=== PATIENT | female | born 1945 ===

== ENCOUNTER 2017-05-23 13:35 | Inpatient (IN) ==
[2017-05-23] MEDS ORDERED: NITROGLYCERIN SL 0.4 MG TABLET SL PRN (13:48)
[2017-05-23] MEDS ORDERED: NITROGLYCERIN 2% OINT 1 INCH/GM PACK TOP STA (13:48)
[2017-05-23] MEDS ORDERED: ALUM/MAG/SIMETH/LIDO VISC 1:1 30 ML BOTTLE PO STA (13:48)
[2017-05-23] MEDS ORDERED: ASPIRIN 325 MG TABLET PO STA (13:48)
[2017-05-23] MEDS ORDERED: ONDANSETRON 4 MG/2 ML VIAL IV PRN ×2 (13:48→16:55)
[2017-05-23] MEDS ORDERED: MORPHINE 2 MG/1 ML SYRINGE IV PRN ×2 (13:48→16:55)
[2017-05-23] MEDS ORDERED: ENOXAPARIN 100 MG/ML SYRINGE SUBCUT STA (13:48)
[2017-05-23] MEDS ORDERED: ENOXAPARIN 100 MG/ML SYRINGE SUBCUT ONE (14:15)
[2017-05-23] MEDS ORDERED: NITROGLYCERIN 2% OINT 1 INCH/GM PACK TOP ONE (14:15)
[2017-05-23] MEDS ORDERED: ALUM/MAG/SIMETH/LIDO VISC 1:1 30 ML BOTTLE PO ONE (14:16)
[2017-05-23] MEDS ORDERED: ASPIRIN 325 MG TABLET ONE (14:16)
--- NOTE | 2017-05-23 14:19 | Emergency Department Note ---
Radha Glover Gwan, am scribing for, and in the presence of, Pedro López MD 13:53 . Maribel Glover James D, MD, personally performed the services described in this documentation, ascribed by Radha Garcia in my presence, and it is both accurate and complete 414 . Arrival - Arrival Chief Complaint: Chest Pain Stated Complaint: CHEST PAIN ED Nursing Triage Note: Patient transfer from [facility] for evaluation of chest pain. Patient woke up this morning, reports sitting on the side of her bed and notice chest begin to hurt Pain is located on the left side of her chest without radiation, nausea, shortness of breath, or diaphoresis. She is without c/o chest pain at this time. Mode of Arrival: Stretcher Limitations: No Limitations Source: Patient, Old Records Reviewed, RN Notes Reviewed - History of Present Illness HPI Narrative: Patient is a 71 y/o female, with a hx of CAD/HTN/CVA, brought into the ED via EMS and transferred form [facility] with a c/o chest pain with an onset this morning. At onset, pt stated that she was sitting in the side of her bed. She describes her pain as a intermittent soreness and that it was located on the left side of her chest. Patient continued to note that with exertion, her pain worsens. She denies that her pain radiates, any nausea, diaphoresis or SOB. Patient confirmed tahat she has a hx of bypass and stent. She denies that this is the same discomfort or having a SHx of smoking cigarettes/ETOH use. While in ED, patient stated that she does not have any pain. Onset (ago): hour(s) Consistency: intermittent Severity: moderate Allergies/Adverse Reactions: Allergies Allergy/AdvReac Type Severity Reaction Status Date / Time No Known Allergies Allergy Verified 02/25/17 08:24 Home Medications: Home Medications Medication Instructions Recorded Confirmed Type Clopidogrel [Plavix] 75 mg PO DAILY 12/23/15 02/25/17 History Isosorbide Mononitrate [Isosorbide 30 mg PO DAILY 12/23/15 02/25/17 History Mononitrate ER] Nitroglycerin Sl Tab [Nitrostat] 0.4 mg SL DIRECTED PRN 12/23/15 02/25/17 History Amlodipine Besylate [Amlodipine 5 mg PO DAILY 05/23/17 History Besylate] Atorvastatin Calcium [Atorvastatin 40 mg PO DAILY 05/23/17 History Calcium] Benazepril HCl [Benazepril HCl] 20 mg PO BID 05/23/17 History Ergocalciferol [Drisdol] 50,000 units PO Q7D 05/23/17 History Furosemide [Furosemide] 20 mg PO DAILY 05/23/17 History Review of System - Review of System 12 point system: reviewed and no additional remarkable complaints except as stated - Review of System Constitutional: Absent: chills, fever Eyes: Absent: pain Head/Ears/Nose/Throat: Absent: earache Respiratory: Absent: cough Cardiovascular: Present: as per HPI, chest pain Gastrointestinal: Absent: abdominal pain, nausea, diarrhea Medical,Surgical,& Family Hx - Medical History Cardio: History of: CAD, Hypertension No history of: CHF, [place] Neurology: History of: Cerebrovascular Accident No history of: Seizures HEENT: History of: Eye Problem (glasses) Endocrine: History of: Dyslipidemia Gastrointestinal: History of: GERD, GI Problems (dysphagia) No history of: Hepatitis, Liver Problems Hematology: History of: Anemia No history of: Blood Transfusion Reaction Other: No history of: Anesthesia Reactions, Cancer - Surgical History Cardiac Surgeries: Sugical HX of: Cardiac Catheterization, Cardiac Surgery ( CABG 12/2015) HEENT Surgeries: Patient denies: Eye Surgery, Tonsilectomy & Adenoidectomy Abdominal Surgeries: Surgical HX of: Appendectomy, Colonoscopy, EGD Patient denies: Cholecystectomy Reproductive Surgeries: Patient denies;: Breast Surgery, Hysterectomy, Tubal Ligation Orthopedic Surgeries: Surgical HX of;: Orthopedic Surgery (rotator cuff surgery) - Family History Family History: Reports;: Family Hypertension Denies;: Family Cancer - Social History Smoking Status: Never smoker Frequency of Alcohol Use: None Type of Drug Use: None Exam Physical Examination: GENERAL: This is a [place] female in no apparent distress. VITAL SIGNS: HEENT: Head is normocephalic and atraumatic. Pupils are equally round and reactive to light. Extraocular movement are intact. Oropharynx is benign with moist mucous membranes. NECK: Neck is soft and supple without tenderness. There are no masses. There is no lymphadenopathy. LUNGS: Lungs are clear to auscultation bilaterally. Chest rises symmetrically. There is no chest wall tenderness. CV: Heart is regular rate and rhythm without murmurs, rubs, or gallops. ABDOMEN: Abdomen is soft, non-tender to palpation. There are no abnormal masses palpated. There is no organomegaly. Bowel sounds are present and active. SKIN: Skin is warm and dry. No rash. EXTREMITIES: Patient has full range of motion without tenderness. There is no pedal edema. NEUROLOGIC: Awake, alert, and oriented x4. Cranial nerves II through XII are grossly intact. There are no motorsensory deficits. PSYCHIATRIC: Normal affect. Normal mood. Vital Signs: Vital Signs Temperature 97.0 F L 05/23/17 13:36 Pulse Rate 59 L 05/23/17 13:36 Respiratory Rate 17 05/23/17 13:36 Blood Pressure 165/95 05/23/17 13:36 O2 Sat by Pulse Oximetry 99 05/23/17 13:36 Course - Consultations Consultation #1: Discussed with hospitalist. Patient will be admitted to their service. Time: 15:47 Results - Labs CBC & BMP: 05/23/17 14:26 05/23/17 14:26 Lab Results: I have reviewed the patients labs Labs: Laboratory Tests 05/23/17 14:26 Troponin I < 0.015 - EKG EKG results: interpreted by ERMD - Impressions EKG: Sinus bradycardia with rate of 57 right axis deviation, old inferior SD, ST segment depression laterally and inferiorly consistent with ischemia. - Diagnostic Findings Procedure: Chest x-ray: image reviewed by me (Old median sternotomy, no pleural effusions, no infiltrates.) Disposition Clinical Impression: Chest pain, Coronary artery disease Case discussed with: patient Disposition: Still a Patient Condition: Stable Time of Disposition: 15:42
--- NOTE | 2017-05-23 14:27 | XRay Report ---
2 view chest. Indication: Chest pain. Comparison: Outside film from earlier today. The heart is enlarged with left ventricular hypertrophy. Post median sternotomy. Large calcified lymph node in the AP window area. The pulmonary vasculature is normal. The lung tsai are free of infiltrate. No pneumothorax or pleural effusion. The hilar regions are somewhat prominent, particularly the right suprahilar region, this is stable dating back to 2016. A previous CTA of the chest at that time noted that this can be accounted for by prominent vasculature. Impression: Cardiomegaly. No acute abnormality. PROCEDURE INTERPRETED AT [facility] DEPARTMENT OF RADIOLOGY Final Report Signed by: Dr. Latricia Tabor
[2017-05-23 14:36] LABS: Basophils % 0.4 % (0.0-0.8); Eosinophils # 0.2 10*3/uL (0.0-0.87); Eosinophils % 4.5 % (0.00-10.9); Hematocrit 35.5 VOL% (35.7-47.0); Hemoglobin 12.2 GM/DL (12.0-16.0); Immature Granulocytes % 0.2 %; Immature Granulocytes Absolute 0.01 #; Lymphocytes # 1.4 10*3/uL (1.4-4.0); Lymphocytes % 30.2 % (21.3-54.2); Mean Corpuscular HGB Conc 34.4 GM/DL (32-36); Mean Corpuscular Hemoglobin 32 PG (27-34); Mean Corpuscular Volume 92.7 FL (87-102); Mean Platelet Volume 11.4 FL (9.6-12.0); Monocytes # 0.5 10*3/uL (0.11-0.8); Neutrophils # 2.5 10*3/uL (1.4-7.4); Neutrophils % 53.7 % (38.7-73.9); Platelet Count 154 T/CUMM (130-400); Red Blood Count 3.83 MC/CUMM (3.8-5.5); Red Cell Distribution Width 12.5 % (9.3-17.3); White Blood Count 4.6 T/CUMM (4-12)
[2017-05-23 14:46] LABS: PT Patient Result 10.4 SECS; Partial Thromboplastin Time 27.8 SECS (0-40)
[2017-05-23 14:59] LABS: Albumin 3.8 G/DL (3.4-5.0); Bilirubin,Total 0.7 MG/DL (0.2-1.0); Calcium 9.1 MG/DL (8.5-10.1); Magnesium 2.3 MG/DL (1.8-2.4); Osmolality,Calculated 289.8 MOS/KG (273-304); Potassium 3.7 MMOL/L (3.5-5.1); Total Protein 7.3 G/DL (6.4-8.3)
[2017-05-23 16:12] LABS: Apearance,Urine CLEAR (Clear); Bilirubin,Urine Negative (Negative); Blood, Urine Negative (Negative); Glucose,Urine (UA) Negative (Negative); Ketones,Urine Negative (Negative); Mucus,Urine Occasional /LPF (Occasional); Nitrite,Urine Negative (Negative); Protein,Urine Negative; RBC,Urine <1 /HPF (0-4); Squamous Epithelial Cell,Urine Occasional /HPF (0-10); Urine Color Straw (Yellow); Urine Specific Gravity 1.009 (1.001-1.035); Urine Urobilinogen < 2.0 EU/DL (0.2-1.0); WBC,Urine <1 /HPF (0-6)
[2017-05-23 16:20] LABS: Barbiturates Screen,Urine Negative (Negative); Benzodiazepines Screen,Urine Negative (Negative); Cannabinoid Screen,Urine Negative (Negative); Opiate Screen,Urine Positive (Negative); Phencyclidine Screen,Urine Negative (Negative)
--- NOTE | 2017-05-23 16:32 | Hospitalist History & Physical ---
Assessment and Plan - Time spent with patient Time spent with patient: Greater than 30 minutes (1) Chest pain Status: Acute Assessment and plan: 05/23/17 - Will admit to with Hospitalist Services. Will consult Teacher Aide (she has seen Dr Maria). Will order a.m. labs, serial troponin. Will discuss with Dr Gan for further recommendations. Current Visit: Yes History of Present Illness Chief complaint: chest pain History of present illness: Ms. Callahan is a very pleasant 71 year old [place] female presented to [facility] ED via EMS for further evaluation of left sided chest pain without radiating or shortness of breath. She verbalizes sitting up on the side of the bed this morning and noticed left sided chest soreness and a painful "twinge" that was intermittent, but she went to work and started working and the pain increasingly became worse with exertion. Patient verbalized concern of increasing sensation of feeling "really tired" and for the past week feeling overly "fatigued". She verbalized going last night to watch the "[employer]" competition at [place] [employer] and noticed that she had to sit down 2 -3 times because she was just too fatigued to walk the distance without resting, denies shortness of breath, nausea, vomiting, cough, fever or chills. Medical History: CAD, HTN, CVA, dyslipidemia, GERD, Anemia. Surgical HX: CABG 2016, Right Rotator Cuff, Appendectomy, EGD. Denies smoking, alcohol or illicit drug use. PCP: [facility] and sometimes uses Dr Tate in [place]. After discussion with Dr López ED physician and Dr Gan Hospitalist Medicine, it was agreed to admit to Hospitalist Services for further evaluation of chest pain and fatigue to telemetry for close monitoring. Home medications will be reviewed and reconciliation to follow. Code Status Discusses: FULL Code status. Home Medications Medication Instructions Recorded Confirmed Type Clopidogrel [Plavix] 75 mg PO DAILY 12/23/15 02/25/17 History Isosorbide Mononitrate [Isosorbide 30 mg PO DAILY 12/23/15 02/25/17 History Mononitrate ER] Nitroglycerin Sl Tab [Nitrostat] 0.4 mg SL DIRECTED PRN 12/23/15 02/25/17 History Amlodipine Besylate [Amlodipine 5 mg PO DAILY 05/23/17 History Besylate] Atorvastatin Calcium [Atorvastatin 40 mg PO DAILY 05/23/17 History Calcium] Benazepril HCl [Benazepril HCl] 20 mg PO BID 05/23/17 History Ergocalciferol [Drisdol] 50,000 units PO Q7D 05/23/17 History Furosemide [Furosemide] 20 mg PO DAILY 05/23/17 History Allergies Allergy/AdvReac Type Severity Reaction Status Date / Time No Known Allergies Allergy Verified 02/25/17 08:24 Medical,Surgical,& Family Hx - Medical History Cardio: History of: CAD, Hypertension No history of: CHF, [place] Neurology: History of: Cerebrovascular Accident No history of: Seizures HEENT: History of: Eye Problem (glasses) Endocrine: History of: Dyslipidemia Gastrointestinal: History of: GERD, GI Problems (dysphagia) No history of: Hepatitis, Liver Problems Hematology: History of: Anemia No history of: Blood Transfusion Reaction Other: No history of: Anesthesia Reactions, Cancer - Surgical History Cardiac Surgeries: Sugical HX of: Cardiac Catheterization, Cardiac Surgery ( CABG 12/2015) HEENT Surgeries: Patient denies: Eye Surgery, Tonsilectomy & Adenoidectomy Abdominal Surgeries: Surgical HX of: Appendectomy, Colonoscopy, EGD Patient denies: Cholecystectomy Reproductive Surgeries: Patient denies;: Breast Surgery, Hysterectomy, Tubal Ligation Orthopedic Surgeries: Surgical HX of;: Orthopedic Surgery (rotator cuff surgery) - Family History Family History: Reports;: Family Hypertension Denies;: Family Cancer - Social History Smoking Status: Never smoker Frequency of Alcohol Use: None Type of Drug Use: None Marital Status: Functional capacity: independent ambulation Review of systems: ROS is completed and pertinent positives and negatives in HPI. Exam - Constitutional Vitals: Period Temp Pulse Resp BP Sys/Ho Pulse Ox Last 24 Hr 97.0 F-97.0 F 58-59 - 165-165/95-95 99 General appearance: no acute distress, over weight - Head Head exam: Present: normal inspection - Eye Eye exam: Present: EOMI Pupils: Present: BONITA - ENT ENT exam: Present: normal exam (moist membranes) - Neck Neck exam: Present: normal inspection - Respiratory Respiratory exam: Present: clear to auscultation bilaterally. Absent: rhonchi, wheezes - Cardiovascular Cardiovascular exam: Present: regular rate and rhythm - GI/Abdominal GI/Abdominal exam: Present: normal bowel sounds, soft. Absent: tenderness - Extremities Exam Extremities exam: Present: full ROM, edema (trace edema right leg, right leg scar r/t vein harvest/CABG), other (right leg scar from vein harvest - CABG) - Neurological Exam Neurological exam: Present: alert, oriented X3, CN II-XII intact - Psychiatric Psychiatric exam: Present: normal affect, normal mood. Absent: anxious - Skin Skin exam: Present: normal color, warm, dry Results - Labs CBC & BMP: 05/23/17 14:26 05/23/17 14:26 Lab Results: I have reviewed the past 24 hour labs Labs: 05/23/17 - INR 1.0 PT 10.4 PTT 27.8 TROPONIN <0.015 AST 18 ALT 25 ALkaline Phosphatase 121 URINE: negative Toxicology : Opiates positive, rest results negative - EKG EKG results: interpreted by ERMD - Diagnostic Findings Procedure: Chest x-ray: report reviewed by me (No acute abnormality)
[2017-05-23] MEDS ORDERED: ACETAMINOPHEN 325 MG TABLET PO PRN (16:55)
[2017-05-23] MEDS ORDERED: DOCUSATE SODIUM 100 MG CAPSULE PO PRN (16:55)
[2017-05-23] MEDS ORDERED: ENOXAPARIN 40 MG/0.4 ML SYRINGE SUBCUT SCH (17:00)
[2017-05-23] MEDS: BENAZEPRIL 40 MG TABLET PO SCH (21:05)
[2017-05-24 04:48] LABS: Basophils % 0.3 % (0.0-0.8); Eosinophils # 0.2 10*3/uL (0.0-0.87); Eosinophils % 5.7 % (0.00-10.9); Hematocrit 32.9 VOL% (35.7-47.0); Hemoglobin 11.1 GM/DL (12.0-16.0); Immature Granulocytes % 0.3 %; Immature Granulocytes Absolute 0.01 #; Lymphocytes # 1.2 10*3/uL (1.4-4.0); Lymphocytes % 33.2 % (21.3-54.2); Mean Corpuscular HGB Conc 33.7 GM/DL (32-36); Mean Corpuscular Hemoglobin 32 PG (27-34); Mean Platelet Volume 12.1 FL (9.6-12.0); Monocytes # 0.5 10*3/uL (0.11-0.8); Monocytes % 14.4 % (1.7-12.7); Neutrophils # 1.7 10*3/uL (1.4-7.4); Neutrophils % 46.1 % (38.7-73.9); Platelet Count 135 T/CUMM (130-400); Red Cell Distribution Width 12.5 % (9.3-17.3); White Blood Count 3.7 T/CUMM (4-12)
[2017-05-24 05:18] LABS: Calcium 8.7 MG/DL (8.5-10.1); Magnesium 2.4 MG/DL (1.8-2.4); Osmolality,Calculated 298.4 MOS/KG (273-304); Potassium 3.9 MMOL/L (3.5-5.1)
[2017-05-24 05:36] LABS: Troponin I Only < 0.015 NG/ML (0.00-0.045)
--- NOTE | 2017-05-24 06:42 | EKG Report ---
Stationary ECG Study [facility] ER Test Date: 05/23/2017 2:20:19 PM Pat Name: JOSEPH RODRIGUEZ Department: Room: 282 Gender: F Doctor Of Nurse Anesthesia: : 1945 Requested by: Pedro Garcia Order Number: [id number] Reading MD: FELISA WHITLEY Intervals [place] Rate: 57 P: 26 IA: 168 QRS: 104 QRSD: 112 T: -31 QT: 476 QTc: 471 Interpretive Statements SINUS RHYTHM MARKED RIGHT AXIS DEVIATION POSSIBLE LATERAL MYOCARDIAL INFARCTION, AGE UNKNOWN INFERIOR MYOCARDIAL INFARCTION, AGE UNKNOWN Electronically Signed On 05-24-17 14:05:32 CDT by FELISA WHITLEY [email or web address]
--- NOTE | 2017-05-24 07:39 | EKG Report ---
Stationary ECG Study [facility] Test Date: 05/24/2017 7:41:43 AM Pat Name: JOSEPH RODRIGUEZ Department: Room: 282 Gender: F Branch Manager: WILMA : 1945 Requested by: Janett Chan Order Number: [id number] Reading MD: FELISA WHITLEY Intervals [place] Rate: 52 P: 56 MT: 183 QRS: 54 QRSD: 118 T: -25 QT: 483 QTc: 464 Interpretive Statements SINUS BRADYCARDIA LATERAL MYOCARDIAL INFARCTION, UNKNOWN AGE INFERIOR MYOCARDIAL INFARCTION, OF UNKNOWN AGE Electronically Signed On 05-24-17 16:59:33 CDT by FELISA WHITLEY [email or web address]
[2017-05-24] MEDS ORDERED: NIFEdipine 10 MG CAPSULE PO PRN (09:00)
[2017-05-24] MEDS ORDERED: ENOXAPARIN 40 MG/0.4 ML SYRINGE SUBCUT SCH (09:00)
--- NOTE | 2017-05-24 09:03 | Hospitalist Progress Note ---
Assessment and Plan (1) Coronary artery disease Status: Chronic Assessment and plan: The patient is moved the hospital with chest discomfort consistent with angina. The pain came on with work and improved with rest. There is no evidence of myocardial necrosis. The patient's blood pressure is elevated and I am going to add some Procardia as required. I coordinate care with the cardiology team. Cardiology consultation pending. Current Visit: No Qualifiers: Coronary Disease-Associated Artery/Lesion type: [place] artery [place] vs. transplanted heart: [place] heart Associated angina: without angina Qualified Code(s): I25.10 - Atherosclerotic heart disease of [place] coronary artery without angina pectoris (2) Hypertension Status: Chronic Current Visit: No Qualifiers: Hypertension type: essential hypertension Qualified Code(s): I10 - Essential (primary) hypertension Hospitalist: Subjective Interval history: The patient had an uneventful night and feels rested this morning. The patient does not complain of any chest pressure or shortness of breath. Exam - Constitutional Vitals: Period Temp Pulse Resp BP Sys/Ho Pulse Ox Last 24 Hr 97.0 F-98 F 49-59 16-20 103-172/52-95 94-100 General appearance: no acute distress - Respiratory Respiratory exam: Present: clear to auscultation bilaterally, other (Healed midline thoracotomy scar) - Cardiovascular Cardiovascular exam: Present: regular rate and rhythm - GI/Abdominal GI/Abdominal exam: Present: normal bowel sounds Results - Labs CBC & BMP: 05/24/17 03:22 05/24/17 03:22 Lab Results: I have reviewed the past 24 hour labs
[2017-05-24] MEDS: ISOSORBIDE MONONITRATE 30 MG TABLET PO SCH (09:25)
[2017-05-24] MEDS: ATORVASTATIN 40 MG TABLET PO SCH (09:25)
[2017-05-24] MEDS: FUROSEMIDE 20 MG TABLET PO SCH (09:25)
[2017-05-24] MEDS: CLOPIDOGREL 75 MG TABLET PO SCH (09:25)
[2017-05-24] MEDS: PANTOPRAZOLE 40 MG TABLET PO SCH (09:25)
[2017-05-24] MEDS: amLODIPine 5 MG TABLET PO SCH (09:26)
[2017-05-24] MEDS: BENAZEPRIL 40 MG TABLET PO SCH ×2 (09:26→20:54)
[2017-05-24] MEDS ORDERED: MAGNESIUM SULF RIDER 2 GM in PREMIX 1 EACH IV PRN (10:03)
[2017-05-24] MEDS ORDERED: POTASSIUM CHLORIDE RIDER 10 MEQ in PREMIX 1 EACH IV PRN (10:03)
--- NOTE | 2017-05-24 10:04 | Cardiology Progress Note ---
Assessment and Plan - Time spent with patient Time spent with patient: Greater than 30 minutes (Due to assessment, plan, and documentation.) (1) Chest pain Status: Acute Assessment and plan: See plan of care listed below. Current Visit: Yes (2) Coronary artery disease Status: Chronic Assessment and plan: See plan of care listed below. Current Visit: Yes (3) History of coronary artery bypass graft x 2 Status: Chronic Assessment and plan: See plan of care listed below. Current Visit: Yes (4) Hypertension Status: Chronic Assessment and plan: See plan of care listed below. Current Visit: No (5) Dyslipidemia Status: Chronic Assessment and plan: See plan of care listed below. Current Visit: No (6) Paroxysmal atrial fibrillation Status: Chronic Assessment and plan: See plan of care listed below. 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 Callahan is a 71-year-old female with a history of coronary artery disease, hypertension, dyslipidemia, cerebrovascular disease, paroxysmal atrial fibrillation, GERD, and diverticulosis. She is status post coronary artery bypass grafting on December 28, 2015 with an internal mammary graft to the anterior descending coronary artery and vein graft to the right coronary artery. She is a lifetime non-smoker. Last ejection fraction was 65% per left heart cath on December 23, 2015. Ms. Callahan was transferred to our facility from [facility] for further evaluation of chest pain. 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 She tells me that yesterday morning, she woke up and noticed a "soreness" in her left chest wall. She also describes this as a squeezing or "grabbing." She reports this was mild and lasted less than a minute but subsequently waxed and waned throughout the day. She tells me that she went to work and continued to notice the discomfort while she was working. She states that it would occur more often with exertion and improves when she stopped to rest. She had no associated signs and symptoms of shortness of breath, dizziness, lightheadedness, nausea, vomiting, diaphoresis, palpitations. Is nonreproducible to deep breath, movement, or palpation. She states that she went to the emergency room at [facility] and her pain was subsequently relieved with administration of sublingual nitroglycerin. She does admit to easy fatigability over the past several weeks. She has had 3 sets of negative troponins. She has been noted to have inferolateral EKG changes when compared to her EKG from February 2017. Upon arrival to our facility yesterday, she received a dose of weight-based Lovenox, aspirin, nitroglycerin, GI cocktail. She was admitted to the telemetry unit for further evaluation and management and we are consulted to see her. ASSESSMENT/PLAN: 1. CHEST PAIN - Presents with symptoms typical for angina. After discussing with Dr. Jo, we will continue to hold her n.p.o. in anticipation of left heart cath with Dr. Maria this afternoon. 2. CORONARY ARTERY DISEASE -per left heart cath on 12/23/2015, she was noted to have severe triple-vessel CAD and subsequently underwent CABG 2 on 12/28/2015. 3. S/P CABG X2 - She is status post coronary artery bypass grafting on December 28, 2015 with an internal mammary graft to the anterior descending coronary artery and vein graft to the right coronary artery. 4. HYPERTENSION - Currently well controlled with occasional elevated reading. We will continue to monitor and adjust medications accordingly. 5. HYPERLIPIDEMIA - Continue lipid lowering agent. Will check lipid panel in a.m. 6. PAROXYSMAL ATRIAL FIBRILLATION - Currently in sinus bradycardia. Will avoid beta itz or abhijit blocking agents at this time due to HRs in 50s. Continue ASA. 7. CEREBRAL VASCULAR DISEASE 8. OBESITY Exam (Progress Note) - Constitutional Vitals: Period Temp Pulse Resp BP Sys/Ho Pulse Ox Last 24 Hr 97.0 F-98 F 49-59 16-20 103-172/52-95 94-100 Exam: General appearance: Pleasant and cooperative. Normal weight, no acute distress. - Head Head exam: Present: normal inspection, normocephalic, atraumatic. Absent: hematoma, laceration - Eye Eye exam: Present: EOMI. Absent: conjunctival injection, nystagmus, periorbital swelling, scleral icterus, laceration to eyelids Pupils: Present: PERRL. Absent: constricted, dilated, fixed, irregular, unequal - ENT ENT exam: Present: normal exam, normal external ear exam, edentulous of numerous teeth - Neck Neck exam: Present: normal inspection. Absent: lymphadenopathy, meningismus, tenderness, thyromegaly - Respiratory Respiratory exam: Present: clear to auscultation bilaterally. Absent: accessory muscle use, chest wall tenderness - Cardiovascular Cardiovascular exam: Present: regular rate and rhythm, bradycardia. Absent: carotid bruit, rubs, murmur - GI/Abdominal GI/Abdominal exam: Present: normal bowel sounds, soft. Absent: distended, firm , guarding, hernia, mass, tenderness, rebound. - Extremities Exam Extremities exam: Present: normal inspection, normal capillary refill. Upper extremity pulses 2+. Lower extremity pulses 2+. Absent: calf tenderness, edema -Musculoskeletal Exam Musculoskeletal: Present: No Fluid Collection, No Pain, Normal Range of Motion - Back Exam Back exam: Present: normal inspection. Absent: muscle spasm, vertebral tenderness - Neurological Exam Neurological exam: Present: alert, oriented X3, grossly intact without resting or essential tremor - Psychiatric Psychiatric exam: Present: normal affect, normal mood - Skin Skin exam: Present: normal color, warm, dry, intact. Left lower extremity medial scar noted. Midsternal scar noted. Absent: cyanosis, diaphoretic, rash , urticaria Result/EKG - Labs CBC & BMP: 05/24/17 03:22 05/24/17 03:22 Lab Results: I have reviewed the past 24 hour labs Labs: Laboratory Results - last 24 hr 05/23/17 05/23/17 05/23/17 14:26 14:26 14:26 WBC 4.6 RBC 3.83 Hgb 12.2 Hct 35.5 L MCV 92.7 MCH 32 MCHC 34.4 RDW 12.5 Plt Count 154 MPV 11.4 Neut % (Auto) 53.7 Lymph % (Auto) 30.2 Canadian % (Auto) 11.0 Eos % (Auto) 4.5 Baso % (Auto) 0.4 Neut # (Auto) 2.5 Lymph # (Auto) 1.4 Canadian # (Auto) 0.5 Eos # (Auto) 0.2 Baso # (Auto) 0.0 Immature Gran % 0.2 Nucleated RBC % 0.0 Immature Gran # 0.01 Nucleated RBCs # 0.00 INR 1.0 PT Patient/Control Mix 10.4 Circ Anticoag PTT 27.8 Sodium 144 Potassium 3.7 Chloride 108 H Carbon Dioxide 28 Anion Gap 11.7 BUN 23 H Creatinine 1.00 GFR Calculation 63 BUN/Creatinine Ratio 23.00 H Glucose 106 Hemoglobin A1c Calculated Osmolality 289.8 Calcium 9.1 Magnesium 2.3 Total Bilirubin 0.70 AST 18 ALT 25 Alkaline Phosphatase 121 H Total Creatine Kinase Troponin I Total Protein 7.3 Albumin 3.8 Globulin 3.5 Albumin/Globulin Ratio 1.0 L Lipase 111.0 Urine Color Urine Appearance Urine pH Ur Specific [place] Urine Protein Urine Glucose (UA) Urine Ketones Urine Blood Urine Nitrate Urine Bilirubin Urine Urobilinogen Urine Leukocytes Urine RBC Urine WBC Ur Squamous Epith Cells Urine Mucus Ur Culture Indicated? Urine Opiates Screen Ur Barbiturates Screen Ur Phencyclidine Scrn U Amphetamine/Methamph U Benzodiazepines Scrn U Cocaine Metab Screen U Cannabinoids Screen 05/23/17 05/23/17 05/23/17 14:26 15:52 15:52 WBC RBC Hgb Hct MCV MCH MCHC RDW Plt Count MPV Neut % (Auto) Lymph % (Auto) Canadian % (Auto) Eos % (Auto) Baso % (Auto) Neut # (Auto) Lymph # (Auto) Canadian # (Auto) Eos # (Auto) Baso # (Auto) Immature Gran % Nucleated RBC % Immature Gran # Nucleated RBCs # INR PT Patient/Control Mix Circ Anticoag PTT Sodium Potassium Chloride Carbon Dioxide Anion Gap BUN Creatinine GFR Calculation BUN/Creatinine Ratio Glucose Hemoglobin A1c Calculated Osmolality Calcium Magnesium Total Bilirubin AST ALT Alkaline Phosphatase Total Creatine Kinase Troponin I < 0.015 Total Protein Albumin Globulin Albumin/Globulin Ratio Lipase Urine Color Straw Urine Appearance Clear Urine pH 6.0 Ur Specific [place] 1.009 Urine Protein Negative Urine Glucose (UA) Negative Urine Ketones Negative Urine Blood Negative Urine Nitrate Negative Urine Bilirubin Negative Urine Urobilinogen < 2.0 H Urine Leukocytes Negative Urine RBC <1 Urine WBC <1 Ur Squamous Epith Cells Occasional Urine Mucus Occasional Ur Culture Indicated? Not indicated Urine Opiates Screen Positive H Ur Barbiturates Screen Negative Ur Phencyclidine Scrn Negative U Amphetamine/Methamph Negative U Benzodiazepines Scrn Negative U Cocaine Metab Screen Negative U Cannabinoids Screen Negative 05/23/17 05/24/17 05/24/17 18:32 03:22 03:22 WBC 3.7 L RBC 3.50 L Hgb 11.1 L Hct 32.9 L MCV 94.0 MCH 32 MCHC 33.7 RDW 12.5 Plt Count 135 MPV 12.1 H Neut % (Auto) 46.1 Lymph % (Auto) 33.2 Canadian % (Auto) 14.4 H Eos % (Auto) 5.7 Baso % (Auto) 0.3 Neut # (Auto) 1.7 Lymph # (Auto) 1.2 L Canadian # (Auto) 0.5 Eos # (Auto) 0.2 Baso # (Auto) 0.0 Immature Gran % 0.3 Nucleated RBC % 0.0 Immature Gran # 0.01 Nucleated RBCs # 0.00 INR PT Patient/Control Mix Circ Anticoag PTT Sodium 147 H Potassium 3.9 Chloride 110 H Carbon Dioxide 29 Anion Gap 11.9 BUN 33 H D Creatinine 1.20 H GFR Calculation 51 BUN/Creatinine Ratio 27.00 H Glucose 104 Hemoglobin A1c Calculated Osmolality 298.4 Calcium 8.7 Magnesium 2.4 Total Bilirubin AST ALT Alkaline Phosphatase Total Creatine Kinase Troponin I < 0.015 Total Protein Albumin Globulin Albumin/Globulin Ratio Lipase Urine Color Urine Appearance Urine pH Ur Specific [place] Urine Protein Urine Glucose (UA) Urine Ketones Urine Blood Urine Nitrate Urine Bilirubin Urine Urobilinogen Urine Leukocytes Urine RBC Urine WBC Ur Squamous Epith Cells Urine Mucus Ur Culture Indicated? Urine Opiates Screen Ur Barbiturates Screen Ur Phencyclidine Scrn U Amphetamine/Methamph U Benzodiazepines Scrn U Cocaine Metab Screen U Cannabinoids Screen 05/24/17 05/24/17 03:22 03:22 WBC RBC Hgb Hct MCV MCH MCHC RDW Plt Count MPV Neut % (Auto) Lymph % (Auto) Canadian % (Auto) Eos % (Auto) Baso % (Auto) Neut # (Auto) Lymph # (Auto) Canadian # (Auto) Eos # (Auto) Baso # (Auto) Immature Gran % Nucleated RBC % Immature Gran # Nucleated RBCs # INR PT Patient/Control Mix Circ Anticoag PTT Sodium Potassium Chloride Carbon Dioxide Anion Gap BUN Creatinine GFR Calculation BUN/Creatinine Ratio Glucose Hemoglobin A1c 6.2 Calculated Osmolality Calcium Magnesium Total Bilirubin AST ALT Alkaline Phosphatase Total Creatine Kinase 49 Troponin I < 0.015 Total Protein Albumin Globulin Albumin/Globulin Ratio Lipase Urine Color Urine Appearance Urine pH Ur Specific [place] Urine Protein Urine Glucose (UA) Urine Ketones Urine Blood Urine Nitrate Urine Bilirubin Urine Urobilinogen Urine Leukocytes Urine RBC Urine WBC Ur Squamous Epith Cells Urine Mucus Ur Culture Indicated? Urine Opiates Screen Ur Barbiturates Screen Ur Phencyclidine Scrn U Amphetamine/Methamph U Benzodiazepines Scrn U Cocaine Metab Screen U Cannabinoids Screen - EKG EKG results: interpreted by me, sinus rhythm EKG shows: bradycardia (With ST-T abnormality.)
[2017-05-24] MEDS ORDERED: SODIUM CHLORIDE 0.45% 1,000 ML IV SCH (11:00)
--- NOTE | 2017-05-24 12:54 | History and Physical Update ---
Sedation H&P Update - History and Physical H&P was reviewed, the patient examined and there: are no changes in the patients condition since last H&P was completed. - Dictation Physical: refer to scanned H&P - Physical Exam Mental Status: alert and oriented Heart: regular rate and rhythm Lung: clear to auscultation Abdomen: within normal limits Vitals: within normal limits - Sedation Plan for Sedation: moderate Patient Consent: Procedure disscussed with patient and patinet has consented., Risks and benefits were discussed with patient,including infection,, bleeding, injury to surrounding structures, seizure, temporary nerve, Patient understands and accepts potential risks/benefits and agrees to, proceed. ASA Class: III Airway Assessment: Class III: Soft palate, base of uvula visible
[2017-05-24] MEDS ORDERED: diphenhydrAMINE CAP 25 MG CAPSULE PO ONE (13:00)
[2017-05-24] MEDS ORDERED: DIAZEPAM 5 MG TABLET PO ONE (13:00)
[2017-05-24] MEDS: ASPIRIN EC 81 MG TABLET PO SCH (13:02)
[2017-05-24] MEDS ORDERED: fentaNYL 100 MCG/2 ML VIAL ONE (14:19)
[2017-05-24] MEDS ORDERED: LIDOCAINE 1% 20 ML VIAL ONE (14:19)
[2017-05-24] MEDS ORDERED: MIDAZOLAM 2 MG/2 ML VIAL ONE (14:19)
[2017-05-24] MEDS ORDERED: ENOXAPARIN 60 MG/0.6 ML SYRINGE ONE (14:48)
[2017-05-24] MEDS ORDERED: HEPARIN/NACL 0.9% 2 UNITS/ML 1,000 ML IV ONE (14:59)
[2017-05-24] MEDS ORDERED: CLOPIDOGREL 300 MG TABLET ONE (15:15)
[2017-05-24] MEDS ORDERED: CLOPIDOGREL 300 MG TABLET PO ONE (15:22)
--- NOTE | 2017-05-24 15:40 | Cardiac Catheterization ---
Date of Procedure:: 05/24/17 Pre-op Diagnosis: Unstable angina Post-op diagnosis: other (Unstable angina secondary to 90+% stenosis in the right coronary artery, distal with SANJUANITA II flow status post PCI less than 10% residual stenosis and SANJUANITA-3 flow. Diffuse disease in the saphenous vein graft to the RCA and moderate stenosis in the ostial left circumflex. Widely patent ARLEY to the LAD with multiple branches.) Procedure: Procedures: 1. Left heart catheterization resting hemodynamics 2. Left ventriculography, hand-injection 3. Selective left and right coronary angiography 4. Saphenous vein graft injection to the RCA 5. Nonselective injection of the ARLEY to the LAD as a cardiac conduit in situ 6 PCI of the saphenous vein graft to the right coronary artery 7. Right femoral iliac angiography 8. Closure right femoral arteriotomy After consent was taken from the patient. Taken to the catheterization lab for left heart catheterization via the femoral artery. Time out was taken and recorded. 1% lidocaine was infiltrated in the skin and subcutaneous tissue overlying the right femoral artery. Modified Seldinger technique and an 18- gauge Cook needle was used for access to the right femoral artery. An 0.35 J- wire was advanced through the needle into the central aorta under fluoroscopy. A small skin was made and a 6 Latvian sheath was placed over the wire. The sheath was aspirated and flushed. A JL46 was advanced over the wires in the left main coronary artery was selectively engaged. Multiple orthogonal views of the left system were obtained. The catheter was then exchanged over the wire. The sheath was aspirated and flushed. A JR4 catheter was advanced over the wire into the central aorta. The right coronary was selectively engaged and orthogonal views of the right coronary artery were obtained. The catheter was then exchanged over the wire, the sheath was aspirated and flushed. At this time an angled pigtail catheter was advanced across the aortic valve into the ventricle. Pressure measurements were obtained and a cine ventriculogram was performed in the SHEPHERD projection with 10 mL/s for a total of 30 mL of contrast. Pullback measurements were performed. The high frequency mill operator reviewed the films. The room was set up for the intervention mode. She been receiving 40 mg of Lovenox subcu now we gave an additional 40 mg of IV Lovenox for intervention. The patient had a background of clopidogrel. 40 mg of Lovenox were given IV and an 8 Sabiha MP B1 guide was advanced over the wire in the central aorta and the saphenous vein graft to the RCA was selectively engaged. This time a 180 cm Tabacus Initative pro-water wire was advanced with moderate difficulty past the 99+% stenosis in the anastomosis and proximal portion of the distal right coronary artery into the distal posterior lateral branches. At this time a 2.0 x 12 mm trek balloon was advanced over the wire and 3 inflations were made to maximum 14 ines with excellent improvement in the angiographic appearance of the stenosis. At this time the balloon was removed and a 2.25 x 38 mm Synergy drug- eluting stent was advanced into the posterior lateral branch all the way back into the saphenous vein graft across the multiple long area of stenosis. He was inflated to 14 ines and held for 10 seconds. Stent balloon was removed. There was significant stenosis seen at this time proximally just after what appears to be a vein valve. And a 2.5 x 16 mm Synergy drug-eluting stent was then placed [place] overlapping the 225 stent. The T5 balloon was advanced and inflated to 12 ines as well. Stent balloon was removed. There was an area of abnormality that looks stenotic at the ostium of the vein graft this was not previously appreciated it may be due to curtain rodding however may also be due to plaque disruption from advancing a multiple equipment in this area was felt that it was best treated with intervention. At this time a 2.5 x 12 mm Synergy drug-eluting stent was used to direct stent this area with excellent angiographic result the balloon was pulled back and inflated to 18 ines. This was for the purpose of "trumping" the ostium of the stent. The vein graft remained diffusely diseased but the areas of high-grade stenosis had been treated. There was SANJUANITA III flow in the vessel there was a very small branch and the posterior lateral branch that had SANJUANITA I flow. All stented areas had improved to SANJUANITA-3 flow with less than 10% residual stenosis it was felt that maximum benefit had been achieved. Because of the nature of the vein graft was felt that the areas were best not postdilated to high pressure atmospheres with NC balloon. The stenosis was too great in the initial presentation to place a filter wire. The sheath was aspirated and flushed and a right femoral and iliac angiography was performed. The access site was amenable for closure and the area was reprepped with ChloraPrep and draped with sterile towels. The Mynx closure device was used in standard technique. Angio-Seal was not used because of a high trifurcation of the femoral artery. There was no hematoma and distal pulses were good. Total diagnostic fluoroscopy time 9.4 minutes with a total PCI fluoroscopy dose of 1016 MGy. Total contrast exposure 150 cc of Omnipaque FINDINGS: LV: 143/11 LVEDP: 13 Ao:147/67 EF: 55% with no clear regional wall motion and remount LM: There is distal high-grade left main stenosis involving the LAD and the moderate to severe stenosis of the ostium of the nondominant left circumflex. There is SANJUANITA II flow in the LAD and competitive flow seen from the ARLEY. There are multiple branches that have good flow. LAD: This vessel is highly diseased it is subtotally occluded in the proximal segment and received competitive flow from the ARLEY. It is not well visualized due to ostial high-grade stenosis from injection of the three affiliated epicardial coronary arteries. LCx: This is a nondominant vessel has approximately 50-60% ostial stenosis or distal left main stenosis that involves ostium of the left circumflex. Remainder vessels free of significant disease. RCA: The right coronary artery is a dominant the three affiliated right coronary artery is occluded at the anastomosis of the saphenous vein graft. It is diffusely diseased. The distal RCA, PDA, and posterior lateral branch are not seen with injection of the in situ right coronary artery. ARLEY to the left anterior descending artery is a very mature large vessel it has 2 large branches that persist to the chest wall. The anastomosis looks excellent visualization of the LAD is seen through injection of this graft. Is a very mature large graft. There is no stenosis Saphenous vein graft to the distal right coronary artery is diffusely diseased. There is a 70% ostial stenosis with SANJUANITA-3 flow. Is a 80% body graft stenosis this long and tubular it has SANJUANITA-3 flow. At or near the anastomosis of the vein graft and into the distal right coronary artery extending only into the posterior lateral branch there is a highly diseased eccentric stenosis that is 90+%. On initial angiography demonstrates SANJUANITA-2 flow post PCI it has SANJUANITA- 3 flow RFA/DINESH: These arteries are angiographically normal there is however a very high trifurcating vessel at the level of the fovea. There is no high-grade stenosis however it is not amenable for closure with Angio-Seal due to the multiple branches at this level. Assessment: 1. Three-vessel coronary disease with inadequate revascularization status post successful PCI of the ostial, body and distal saphenous vein graft to the RCA with extension into the posterior lateral branch with MALINI 3 as described above 2. Preserved ejection fraction with normal resting hemodynamics mildly elevated blood pressure 3. Status post successful PCI as described above angiographically 4. Moderate ostial left circumflex/distal left main disease 5. Widely patent internal mammary artery to the LAD with 2 large branches persistent on the ARLEY. PLAN: 1. Continue dual antiplatelet therapy, therapeutic lifestyle changes, risk factor modification and medications pharmacologic therapy including statins JOSE ENRIQUE inhibitor etc. Consider beta-itz however at this point would not add given her resting heart rate of 60 monitor closely she may need this as an outpatient. Implants: 2.25 x 38 mm Synergy drug-eluting stent, 2.5 x 16 mm Synergy drug-eluting stent and 2.5 x 12 mm Synergy drug-eluting stent. These are distal to proximal and ostial in these saphenous vein graft to the distal RCA Anesthesia: moderate conscious sedation Surgeon / Physician: Jennifer Maria Dental Specialist: none Estimated blood loss: none Specimens: none sent Condition: stable Disposition: floor - Medications / Follow-up
[2017-05-25 04:45] LABS: Basophils % 0.4 % (0.0-0.8); Eosinophils # 0.2 10*3/uL (0.0-0.87); Eosinophils % 4.5 % (0.00-10.9); Hematocrit 35.3 VOL% (35.7-47.0); Hemoglobin 11.9 GM/DL (12.0-16.0); Immature Granulocytes % 0.2 %; Immature Granulocytes Absolute 0.01 #; Lymphocytes # 1.3 10*3/uL (1.4-4.0); Lymphocytes % 28.1 % (21.3-54.2); Mean Corpuscular HGB Conc 33.7 GM/DL (32-36); Mean Corpuscular Hemoglobin 32 PG (27-34); Mean Corpuscular Volume 93.4 FL (87-102); Mean Platelet Volume 11.3 FL (9.6-12.0); Monocytes # 0.5 10*3/uL (0.11-0.8); Monocytes % 11.5 % (1.7-12.7); Neutrophils # 2.6 10*3/uL (1.4-7.4); Neutrophils % 55.3 % (38.7-73.9); Platelet Count 144 T/CUMM (130-400); Red Blood Count 3.78 MC/CUMM (3.8-5.5); Red Cell Distribution Width 12.3 % (9.3-17.3); White Blood Count 4.7 T/CUMM (4-12)
[2017-05-25 05:26] LABS: Calcium 8.8 MG/DL (8.5-10.1); Magnesium 2.4 MG/DL (1.8-2.4); Osmolality,Calculated 290.1 MOS/KG (273-304); Potassium 3.7 MMOL/L (3.5-5.1)
[2017-05-25 05:46] LABS: Risk Ratio 3.16
--- NOTE | 2017-05-25 07:51 | EKG Report ---
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
[2017-05-25] MEDS: PANTOPRAZOLE 40 MG TABLET PO SCH (08:40)
[2017-05-25] MEDS: CLOPIDOGREL 75 MG TABLET PO SCH (08:40)
[2017-05-25] MEDS: ASPIRIN EC 81 MG TABLET PO SCH (08:40)
[2017-05-25] MEDS: FUROSEMIDE 20 MG TABLET PO SCH (08:41)
[2017-05-25] MEDS: ATORVASTATIN 40 MG TABLET PO SCH (08:41)
[2017-05-25] MEDS: BENAZEPRIL 40 MG TABLET PO SCH (08:41)
[2017-05-25] MEDS: amLODIPine 5 MG TABLET PO SCH (08:41)
[2017-05-25] MEDS: ISOSORBIDE MONONITRATE 30 MG TABLET PO SCH (08:41)
--- NOTE | 2017-05-25 09:32 | Discharge Summary ---
Hospital Course - Hospital Course Hospital Course: This is a 71-year-old lady who has a history of coronary disease status post coronary bypass grafting. She has now undergone evaluation with cardiac catheterization demonstrating distal right coronary graft disease it has been treated with percutaneous intervention and stenting with multiple drug-eluting stents placed to the distal right coronary graft. She is currently stable post PCI and our plan is going to be to let the patient be discharged home to follow- up with Dr. Hogue in 2 weeks. She has been fully instructed related activities medications and precautions. She will be continued on Plavix and aspirin and antianginals. Discharge Plan - Discharge Data Disposition: Disch To Home/Self Care Condition at Discharge: Stable Discharge Diet: heart healthy Activity: other (As outlined on the post catheterization instruction sheet) - Discharge Medications New Nitroglycerin Sl Tab [Nitrostat] 0.4 mg SL Q5M PRN #100 tablet PRN Reason: Chest Pain Aspirin EC Tab 81 mg PO DAILY #30 tablet Continue Clopidogrel [Plavix] 75 mg PO DAILY Isosorbide Mononitrate [Isosorbide Mononitrate ER] 30 mg PO DAILY Furosemide 20 mg PO DAILY Benazepril HCl 20 mg PO BID Atorvastatin Calcium 40 mg PO DAILY Amlodipine Besylate 5 mg PO DAILY Ergocalciferol [Drisdol] 50,000 units PO Q7D - Follow Up or Referral Follow Up: Jennifer Maria DO [Physician] - 2 Weeks - Forms/Instructions Exam - Constitutional Vitals: Period Temp Pulse Resp BP Sys/Ho Pulse Ox Last 24 Hr 97.3 F-98.2 F 57-78 16-20 120-153/58-86 95-98 Discharge Results Procedures and tests throughout hospitalization: Pending Orders 05/24/17 10:10 CL heart Routine 05/26/17 04:00 BMP w/ Mg [Basic Metabolic Panel w/Mg] IN AM Comp Blood Count Auto Diff IN AM 05/27/17 04:00 BMP w/ Mg [Basic Metabolic Panel w/Mg] IN AM Comp Blood Count Auto Diff IN AM Labs on day of discharge: Labs from last 24 hours 05/25/17 05/25/17 05/25/17 04:34 04:34 04:34 WBC 4.7 RBC 3.78 L Hgb 11.9 L Hct 35.3 L MCV 93.4 MCH 32 MCHC 33.7 RDW 12.3 Plt Count 144 MPV 11.3 Neut % (Auto) 55.3 Lymph % (Auto) 28.1 [place] % (Auto) 11.5 Eos % (Auto) 4.5 Baso % (Auto) 0.4 Neut # (Auto) 2.6 Lymph # (Auto) 1.3 L [place] # (Auto) 0.5 Eos # (Auto) 0.2 Baso # (Auto) 0.0 Immature Gran % 0.2 Nucleated RBC % 0.0 Immature Gran # 0.01 Nucleated RBCs # 0.00 Sodium 142 Potassium 3.7 Chloride 106 Carbon Dioxide 28 Anion Gap 11.7 BUN 33 H Creatinine 1.00 GFR Calculation 63 BUN/Creatinine Ratio 33.00 H Glucose 112 H POC Glucose Calculated Osmolality 290.1 Calcium 8.8 Magnesium 2.4 Triglycerides 90 Cholesterol 142 LDL Cholesterol 84.0 VLDL Cholesterol 18.0 HDL Cholesterol 45 Heart Disease Risk Ratio 3.16 05/24/17 17:16 WBC RBC Hgb Hct MCV MCH MCHC RDW Plt Count MPV Neut % (Auto) Lymph % (Auto) [place] % (Auto) Eos % (Auto) Baso % (Auto) Neut # (Auto) Lymph # (Auto) [place] # (Auto) Eos # (Auto) Baso # (Auto) Immature Gran % Nucleated RBC % Immature Gran # Nucleated RBCs # Sodium Potassium Chloride Carbon Dioxide Anion Gap BUN Creatinine GFR Calculation BUN/Creatinine Ratio Glucose POC Glucose 101 Calculated Osmolality Calcium Magnesium Triglycerides Cholesterol LDL Cholesterol VLDL Cholesterol HDL Cholesterol Heart Disease Risk Ratio DS: Provider Date of admission: 05/23/17 15:59 Primary care physician: Ratna Reynolds MD Attending physician on admission: Alton Gan MD Consults: 05/24/17 07:57 Consult to Physician [CONS] Routine Comment: Consulting Provider: Cardiology - [facility] Consult to Specialist Group: Cardiology Person Notified: ARBEN Date Notified: 05/24/17 Time Notified: 07:55 05/24/17 15:22 Consult to Cardiac Rehabilitation [CONS] Routine Reason for Cardiac Rehabilitation: Risk Factor Modification Home Exercise Program/[place] Discharging clinician: Eddie Jo MD
[2017-05-25 11:46] VITALS: BP 118/70
[2017-05-28] MEDS ORDERED: ERGOCALCIFEROL 50,000 UNIT CAPSULE PO SCH (09:00)
== END 2017-05-25 11:57 | disposition home or self-care (01) | DRG 247 ==
LOC: EDUNIT# → N.ED 13:35 → N.EDINP 15:59 → N.TELEN 17:45
PROVIDERS: ADMIT Internal Medicine; ATTEND Internal Medicine

== ENCOUNTER 2017-07-25 14:47 | Inpatient (IN) ==
[2017-07-25] MEDS ORDERED: ACETAMINOPHEN 325 MG TABLET PO PRN (19:09)
[2017-07-25] MEDS ORDERED: ONDANSETRON 4 MG/2 ML VIAL IV PRN (19:09)
--- NOTE | 2017-07-25 20:14 | Hospitalist History & Physical ---
Assessment and Plan (1) Pneumonia Status: Acute Current Visit: Yes (2) Hypertension Status: Chronic Current Visit: No (3) Coronary artery disease Status: Chronic Current Visit: No Qualifiers: Coronary Disease-Associated Artery/Lesion type: [place] artery [place] vs. transplanted heart: [place] heart Associated angina: without angina Qualified Code(s): I25.10 - Atherosclerotic heart disease of [place] coronary artery without angina pectoris (4) Dyslipidemia Status: Chronic Current Visit: No (5) Chest pain Status: Acute Assessment and plan: Patient was sent over for further evaluation of this chest burning. It sounds real atypical for her but troponins did come in positive. Is been quite a few years since she had her CABG. She was getting better from the pulmonary standpoint. Our plan for this patient 1. Admit patient to telemetry 2. Continue with IV antibiotics 3. Continue home meds as appropriate 4. Troponins drawn serially 5. Cardiology consult 6. Repeat chest x-ray Current Visit: No (6) NSTEMI (non-ST elevated myocardial infarction) Status: Acute Current Visit: Yes History of Present Illness Chief complaint: Transfer from [facility] History of present illness: Ms. Callahan is a 72 year old female with past medical history significant for coronary artery disease and hypertension who is been hospitalized at [facility] 1 day. Patient was admitted for a productive cough and pneumonia. She was put on Rocephin and Zithromax. Apparently patient was doing better with her breathing. Today she had a chest pain. It was a burning sensation that radiated bilaterally to her arms. The [facility] got concerned and wanted her sent here for a cardiology evaluation. We were consulted to admit her as a direct transfer. Home Medications Medication Instructions Recorded Confirmed Type Clopidogrel [Plavix] 75 mg PO DAILY 12/23/15 07/25/17 History Isosorbide Mononitrate [Isosorbide 30 mg PO DAILY 12/23/15 07/25/17 History Mononitrate ER] Amlodipine Besylate 5 mg PO DAILY 05/23/17 07/25/17 History Atorvastatin Calcium 40 mg PO DAILY 05/23/17 07/25/17 History Benazepril HCl 20 mg PO BID 05/23/17 07/25/17 History Ergocalciferol [Drisdol] 50,000 units PO Q7D 05/23/17 07/25/17 History Furosemide 20 mg PO DAILY 05/23/17 07/25/17 History Aspirin EC Tab 81 mg PO DAILY #30 tablet 05/25/17 07/25/17 Rx Nitroglycerin Sl Tab [Nitrostat] 0.4 mg SL Q5M PRN #100 tablet 05/25/17 Rx Allergies Allergy/AdvReac Type Severity Reaction Status Date / Time No Known Allergies Allergy Verified 07/25/17 18:51 Medical,Surgical,& Family Hx - Medical History Cardio: History of: CAD, Hypertension No history of: CHF, [place] Neurology: History of: Cerebrovascular Accident No history of: Seizures HEENT: History of: Eye Problem (glasses) Endocrine: History of: Dyslipidemia Gastrointestinal: History of: GERD, GI Problems (dysphagia) No history of: Hepatitis, Liver Problems Hematology: History of: Anemia No history of: Blood Transfusion Reaction Other: No history of: Anesthesia Reactions, Cancer - Surgical History Cardiac Surgeries: Sugical HX of: Cardiac Catheterization, Cardiac Surgery ( CABG 12/2015) HEENT Surgeries: Patient denies: Eye Surgery, Tonsilectomy & Adenoidectomy Abdominal Surgeries: Surgical HX of: Appendectomy, Colonoscopy, EGD Patient denies: Cholecystectomy Reproductive Surgeries: Patient denies;: Breast Surgery, Hysterectomy, Tubal Ligation Orthopedic Surgeries: Surgical HX of;: Orthopedic Surgery (rotator cuff surgery) - Family History Family History: Reports;: Family Diabetes (mother, sister), Family Hypertension (sister, mother) Denies;: Family Cancer, Family Heart Disease, Family Psychiatric Problems, Family Stroke - Social History Smoking Status: Never smoker Frequency of Alcohol Use: None Type of Drug Use: None 12 point system: reviewed and no additional remarkable complaints except as stated Exam - Constitutional Vitals: Period Temp Pulse Resp BP Sys/Ho Pulse Ox Last 24 Hr 96.9 F 71 20 133/62 98 General appearance: over weight - Head Head exam: Present: normal inspection - Eye Eye exam: Present: EOMI Pupils: Present: BONITA - ENT ENT exam: Present: normal exam - Neck Neck exam: Present: normal inspection - Respiratory Respiratory exam: Present: rhonchi - Cardiovascular Cardiovascular exam: Present: regular rate and rhythm - GI/Abdominal GI/Abdominal exam: Present: normal bowel sounds - Extremities Exam Extremities exam: Present: normal inspection - Back Exam Back exam: Present: normal inspection - Neurological Exam Neurological exam: Present: alert - Psychiatric Psychiatric exam: Present: normal affect, normal mood - Skin Skin exam: Present: normal color, warm Results - Labs Labs: Labs at hospital that were ordered came back with a troponin of 2.380, BNP 330 CK-MB 5.2 glucose 177 Labs from [facility]: White count 6.7 hemoglobin hematocrit 32 glucose 217 calcium 9.2 chloride 107
[2017-07-25] MEDS ORDERED: GLUCAGON 1 MG VIAL IM PRN (20:19)
[2017-07-25] MEDS ORDERED: DEXTROSE 50% 25 GM/50 ML SYRINGE IV PRN (20:19)
[2017-07-25] MEDS ORDERED: ALBUTEROL 2.5 MG/3 ML NEB RESP TX PRN (20:19)
[2017-07-25] MEDS ORDERED: ERGOCALCIFEROL 50,000 UNIT CAPSULE PO SCH (20:30)
[2017-07-25 20:52] LABS: CKMB % 3.4 %
[2017-07-25 20:55] LABS: Troponin I Only 2.38 NG/ML (0.00-0.045)
[2017-07-25] MEDS ORDERED: ENOXAPARIN 40 MG/0.4 ML SYRINGE SUBCUT SCH (21:00)
[2017-07-25] MEDS ORDERED: ENOXAPARIN 80 MG/0.8 ML SYRINGE SUBCUT SCH (21:30)
[2017-07-25] MEDS: INSULIN REGULAR 100 UNIT/ML SUBCUT SCH (21:38)
[2017-07-25] MEDS: BENAZEPRIL 10 MG TABLET PO SCH (21:38)
[2017-07-26] MEDS: ALBUTEROL/IPRATROPIUM 3 ML NEB RESP TX SCH ×5 (00:29→23:54)
[2017-07-26 00:52] LABS: Hemoglobin 9.5 GM/DL (12.0-16.0); Immature Granulocytes Absolute 0.45 #; Lymphocytes # 0.7 10*3/uL (1.4-4.0); Lymphocytes % 8.2 % (21.3-54.2); Mean Corpuscular HGB Conc 33.9 GM/DL (32-36); Mean Corpuscular Hemoglobin 32 PG (27-34); Mean Corpuscular Volume 93.6 FL (87-102); Mean Platelet Volume 11.3 FL (9.6-12.0); Monocytes # 0.8 10*3/uL (0.11-0.8); Monocytes % 8.8 % (1.7-12.7); Neutrophils # 7.1 10*3/uL (1.4-7.4); Platelet Count 184 T/CUMM (130-400); Red Blood Count 2.99 MC/CUMM (3.8-5.5); Red Cell Distribution Width 12.3 % (9.3-17.3); White Blood Count 9.1 T/CUMM (4-12)
[2017-07-26 01:24] LABS: CKMB % 3.9 %
[2017-07-26 01:31] LABS: Calcium 8.4 MG/DL (8.5-10.1); Free T4 (Free Thyroxine) 1.05 NG/DL (0.76-1.46); Magnesium 2.1 MG/DL (1.8-2.4); Potassium 3.9 MMOL/L (3.5-5.1); Risk Ratio 2.81; Thyroid Stimulating Hormone 0.243 uIU/ml (0.358-3.74); VLDL CHOLESTEROL 11.4 MG/DL
[2017-07-26 01:33] LABS: Troponin I Only 5.42 NG/ML (0.00-0.045)
[2017-07-26 06:19] LABS: CKMB % 4.6 %
[2017-07-26 06:28] LABS: Troponin I Only 6.38 NG/ML (0.00-0.045)
[2017-07-26] MEDS: INSULIN REGULAR 100 UNIT/ML SUBCUT SCH ×4 (08:05→21:20)
--- NOTE | 2017-07-26 08:45 | EKG Report ---
Stationary ECG Study [facility] Test Date: 07/26/2017 8:43:33 AM Pat Name: JOSEPH RODRIGUEZ Department: Room: 288 Gender: F Sheep Sticker: : [id number] Requested by: Latricia Navarro Order Number: [id number] Reading MD: LIUDMILA CADET Intervals [place] Rate: 52 P: 39 ID: [id number] QRS: 30 QRSD: 109 T: 79 QT: 439 QTc: 418 Interpretive Statements SINUS BRADYCARDIA POSSIBLE INFERIOR MYOCARDIAL INFARCTION, PROBABLY OLD Electronically Signed On 07-26-17 17:09:54 CDT by LIUDMILA CADET [email or web address]
--- NOTE | 2017-07-26 08:53 | XRay Report ---
Portable chest Exam date: 07/26/2017 4:00 AM Indication: Shortness of breath, cough Comparison: May 23, 2017 Findings: Cardiomediastinal contours are stable with sternotomy wires and midline. Central and stranding bibasilar densities, likely atelectasis given overall low lung volumes. No acute osseous abnormalities. Visualized upper abdomen demonstrates no acute pathology. Impression: Bibasilar atelectasis PROCEDURE INTERPRETED AT [facility] DEPARTMENT OF RADIOLOGY Final Report Signed by: Stewart Ambrosio
[2017-07-26] MEDS ORDERED: NITROGLYCERIN SL 0.4 MG TABLET SL PRN (08:58)
[2017-07-26] MEDS: cefTRIAXone 1,000 MG in SODIUM CHLORIDE 0.9% 100 ML IV SCH (09:00)
--- NOTE | 2017-07-26 09:08 | Cardiology Consult Note ---
Assessment and Plan - Time spent with patient Time spent with patient: Greater than 30 minutes (1) NSTEMI (non-ST elevated myocardial infarction) Status: Acute Assessment and plan: SEE PLAN OF CARE LISTED BELOW. Current Visit: Yes (2) Pneumonia Status: Acute Assessment and plan: SEE PLAN OF CARE LISTED BELOW. Current Visit: Yes (3) Acute dyspnea Status: Acute Assessment and plan: SEE PLAN OF CARE LISTED BELOW. Current Visit: Yes (4) Coronary artery disease Status: Chronic Assessment and plan: SEE PLAN OF CARE LISTED BELOW. Current Visit: Yes Qualifiers: Coronary Disease-Associated Artery/Lesion type: [place] artery [place] vs. transplanted heart: [place] heart Associated angina: without angina Qualified Code(s): I25.10 - Atherosclerotic heart disease of [place] coronary artery without angina pectoris (5) Dyslipidemia Status: Chronic Assessment and plan: SEE PLAN OF CARE LISTED BELOW. 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 Current Visit: No (7) Obesity (BMI 30.0-34.9) Status: Chronic Assessment and plan: SEE PLAN OF CARE LISTED BELOW. Current Visit: No (8) Diabetes Status: Chronic Assessment and plan: SEE PLAN OF CARE LISTED BELOW. Current Visit: Yes Qualifiers: Diabetes mellitus type: type 2 (9) Anemia Status: Chronic Assessment and plan: SEE PLAN OF CARE LISTED BELOW. Current Visit: Yes (10) Hypertension Status: Chronic Assessment and plan: SEE PLAN OF CARE LISTED BELOW. Current Visit: No History of Present Illness - Data of Consult Patient: known to practice within the last 3 years Consult date: 07/26/17 Requesting Physician: Vargas Gill - Consult Narrative Reason for consult: chest pain, elevated troponin. 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 Maria Ms. Callahan is a 72 year old female with known history of coronary artery disease, routinely followed by Dr. Maria. Cardiac risk factors include: Diabetes, hypertension, dyslipidemia, obesity, sedentary lifestyle and family history of premature CAD. Lifetime non-smoker. She underwent heart catheterization 2015 which revealed severe triple-vessel coronary disease and was set up for coronary artery bypass grafting. Dr. Azevedo performed coronary bypass grafting 2 with internal mammary graft to LAD and SVG to RCA December 2015. Her most recent heart catheterization was performed May 24, 2017. She is status post successful PCI of the ostial, body and distal SVG to RCA. Preserved ejection fraction. Moderate ostial left circumflex, distal left main disease noted. Patient last followed up with Dr. Maria in the cardiology clinic July 23, 2017. Patient was transferred from [facility] for further evaluation of chest pain. She presented to [facility] Saturday with complaints of cough and fever. She was diagnosed with pneumonia and IV antibiotics were initiated. Yesterday , she developed shortness of breath and chest pain after breathing treatment. She rates this a 5 out of 10. Describes it as a chest tightness located midsternally that radiated down both arms. Associated with diaphoresis and shortness of breath. Denies nausea. Unable to identify any specific alleviating or aggravating factors. Unsure if exertional component is present as she has been hospitalized and has had low activity level the last several days. She is unsure exactly how long her chest pain lasted. She reports that her chest pain is slightly different and her pain she experienced prior to her PCI in May. She was given a sublingual nitroglycerin which relieved her chest pain. She was then transferred to our facility for further workup. She has had no further chest pain since arriving at our facility. She just recently underwent PCI May of this year. Reports compliance with dual antiplatelet therapy. She reports that she has noted remarkably well since that time. She has not experienced any recurrent chest pain until evening. She last saw Dr. Maria in the cardiology clinic July 23, 2017. At that time, she was without complaints. However, she was experiencing cough. She is admitted under hospital medicine's service, household telemetry unit. Cardiology was consulted to evaluate her chest pain and elevated troponin. Patient was seen and examined on the telemetry unit. She is chest pain-free this morning. Troponin elevated to 6.3. CK-MB 6.2. EKG revealed sinus rhythm with nonspecific ST and T-wave abnormality. We will continue to trend cardiac biomarkers and EKG. Patient is now chest pain-free. Troponin has elevated to 6.3. EKG reveals sinus rhythm with nonspecific ST and T-wave abnormality. Will continue to trend these. Patient received therapeutic dose of Lovenox last night. Continue dual antiplatelet therapy, lipid-lowering agent, JSOE ENRIQUE inhibitor and nitrates. Heart rate unable to tolerate initiation of beta blockade. Patient does have acute pneumonia and underlying anemia. Persistent cough. I will discuss with Dr. Gaona and Dr. Jo regarding timing of her heart catheterization. Patient is chest pain-free at this time. It may be reasonable to treat medically and hold off on heart catheterization until her pneumonia has completely resolved. Further recommendations to follow. IMPRESSION AND PLAN 1. NON-ST ELEVATION DE- Patient is now chest pain-free. Troponin has elevated to 6.3. EKG reveals sinus rhythm with nonspecific ST and T-wave abnormality. Will continue to trend these. Patient received therapeutic dose of Lovenox last night. Continue dual antiplatelet therapy, lipid-lowering agent , JOSE ENRIQUE inhibitor and nitrates. Heart rate unable to tolerate initiation of beta blockade. Patient does have acute pneumonia and underlying anemia. Persistent cough. I will discuss with Dr. Gaona and Dr. Jo regarding timing of her heart catheterization. We will keep patient n.p.o. Patient is chest pain-free at this time. It may be reasonable to treat medically and hold off on heart catheterization until her pneumonia has completely resolved. Further recommendations to follow. 2. KNOWN CAD, STATUS POST CABG - Continue dual antiplatelet therapy, lipid- lowering agent, JOSE ENRIQUE inhibitor and nitrates. Heart rate unable to tolerate initiation of beta blockade. 3. PNEUMONIA - Continue antibiotics. Afebrile. Continues to have cough. Treatment per hospital medicine. 4. HYPERTENSION - Well controlled. 5. DYSLIPIDEMIA - LDL 75. Continue lipid-lowering agent. 6. DIABETES - Continue sliding scale insulin. Accu-Cheks before meals and at bedtime. 7. OBESITY - Weight loss encouraged via regular exercise and dietary restriction. 8. ANEMIA - She appears to have chronic anemia. However, this admission her H &H is lower than normal. No overt bleeding. I will check stool for occult blood. Anemia profile. Daily CBC. CC: Marian Padron MD - Home Medications and Allergies Home Medications: Home Medications Medication Instructions Recorded Confirmed Type Clopidogrel [Plavix] 75 mg PO DAILY 12/23/15 07/25/17 History Isosorbide Mononitrate [Isosorbide 30 mg PO DAILY 12/23/15 07/25/17 History Mononitrate ER] Amlodipine Besylate 5 mg PO DAILY 05/23/17 07/25/17 History Atorvastatin Calcium 40 mg PO DAILY 05/23/17 07/25/17 History Benazepril HCl 20 mg PO BID 05/23/17 07/25/17 History Ergocalciferol [Drisdol] 50,000 units PO Q7D 05/23/17 07/25/17 History Furosemide 20 mg PO DAILY 05/23/17 07/25/17 History Aspirin EC Tab 81 mg PO DAILY #30 tablet 05/25/17 07/25/17 Rx Nitroglycerin Sl Tab [Nitrostat] 0.4 mg SL Q5M PRN #100 tablet 05/25/17 Rx Allergies/Adverse Reactions: Allergies Allergy/AdvReac Type Severity Reaction Status Date / Time No Known Allergies Allergy Verified 07/25/17 18:51 - Constitutional Constitutional: Present: as per HPI, fatigue, malaise, weakness. Absent: chills , fever(s), frequent falls, headache(s), night sweats, weight gain, weight loss - Cardiovascular Cardiovascular: Present: as per HPI, chest pain at rest, diaphoresis, dyspnea, radiating jaw, neck or arm pain, orthopnea. Absent: claudication, edema, lightheadedness, palpitations, PND - Respiratory Respiratory: Present: as per HPI, cough, dyspnea, wheezing, pain on inspiration , change in phlegm color. Absent: hemoptysis - Gastrointestinal Gastrointestinal: Present: as per HPI. Absent: abdominal pain, change in bowel habits, coffee ground emesis, heartburn, hematemesis, hematochezia, melena, nausea, vomiting - Neurological Neurological: Present: as per HPI. Absent: abnormal gait, abnormal speech, behavioral changes, dizziness, syncope Medical,Surgical,& Family Hx - Medical History Cardio: History of: CAD, Hypertension No history of: CHF, [place] Neurology: No history of: Seizures HEENT: History of: Eye Problem (glasses) Endocrine: History of: Diabetes Mellitus (NIDDM), Dyslipidemia Gastrointestinal: History of: GERD, GI Problems (dysphagia) No history of: Hepatitis, Liver Problems Hematology: History of: Anemia No history of: Blood Transfusion Reaction Other: No history of: Anesthesia Reactions, Cancer - Surgical History Cardiac Surgeries: Sugical HX of: Cardiac Catheterization, Cardiac Surgery ( CABG 12/2015) HEENT Surgeries: Patient denies: Eye Surgery, Tonsilectomy & Adenoidectomy Abdominal Surgeries: Surgical HX of: Appendectomy, Colonoscopy, EGD Patient denies: Cholecystectomy Reproductive Surgeries: Patient denies;: Breast Surgery, Hysterectomy, Tubal Ligation Orthopedic Surgeries: Surgical HX of;: Orthopedic Surgery (rotator cuff surgery) - Family History Family History: Reports;: Family Diabetes (mother, sister), Family Heart Disease , Family Hypertension (sister, mother) Denies;: Family Cancer, Family Psychiatric Problems, Family Stroke - Social History Smoking Status: Never smoker Frequency of Alcohol Use: None Type of Drug Use: None Marital Status: Single Lives With:: Alone Functional capacity: independent ambulation Physical Examination Vital Signs Temp Pulse Resp BP Pulse Ox 96.9 F L 71 20 133/62 98 07/25/17 18:35 07/25/17 18:35 07/25/17 18:35 07/25/17 18:35 07/25/17 18:35 Exam: General: Appears well with no apparent distress. Pleasant and cooperative. Appears comfortable. HEENT: PERRL, normocephalic, atraumatic. Mucous membranes moist. No jaundice noted. Conjunctiva moist and clear, sclerae anicteric Neck: No JVD/HJR, no thyromegaly or lymphadenopathy noted. No carotid bruit appreciated Cardiac: Regular rate and rhythm. No murmur rub or gallop. Lungs: Coarse lung sounds, wheezing. Cough with deep inspiration. Oxygen via nasal cannula. Abdomen: Soft, bowel sounds normoactive. Nontender and nondistended. No abdominal bruit or thrill noted. No masses noted. Extremities: No clubbing, cyanosis noted. No edema noted. Upper extremity pulses 2+. Lower extremity pulses 2+. Capillary refill less than 3 seconds. Skin: No unusual lesions or rashes. No skin breakdown appreciated. Neuro: Awake, alert and oriented 3. Moves all extremities well without hemiparesis or paralysis. No essential tremor is appreciated. Result/EKG - Labs CBC & BMP: 07/26/17 00:23 07/26/17 00:23 Lab Results: I have reviewed the past 24 hour labs Labs: Laboratory Results - last 24 hr 07/25/17 07/25/17 07/25/17 20:01 20:03 21:35 WBC RBC Hgb Hct MCV MCH MCHC RDW Plt Count MPV Neut % (Auto) Lymph % (Auto) [place] % (Auto) Eos % (Auto) Baso % (Auto) Neut # (Auto) Lymph # (Auto) [place] # (Auto) Eos # (Auto) Baso # (Auto) Immature Gran % Nucleated RBC % Immature Gran # Nucleated RBCs # Immature Plt Fraction Sodium Potassium Chloride Carbon Dioxide Anion Gap BUN Creatinine GFR Calculation BUN/Creatinine Ratio Glucose POC Glucose 177 H Hemoglobin A1c Calculated Osmolality Calcium Magnesium Total Creatine Kinase 155 CK-MB (CK-2) 5.2 H CK and CKMB Interp 3.4 Troponin I 2.380 H B-Natriuretic Peptide 330 H Triglycerides Cholesterol LDL Cholesterol VLDL Cholesterol HDL Cholesterol Heart Disease Risk Ratio Free T4 TSH 3rd Generation 07/26/17 07/26/17 07/26/17 00:23 00:23 00:23 WBC 9.1 RBC 2.99 L Hgb 9.5 L Hct 28.0 L MCV 93.6 MCH 32 MCHC 33.9 RDW 12.3 Plt Count 184 MPV 11.3 Neut % (Auto) 78.0 H Lymph % (Auto) 8.2 L [place] % (Auto) 8.8 Eos % (Auto) 0.0 Baso % (Auto) 0.0 Neut # (Auto) 7.1 Lymph # (Auto) 0.7 L [place] # (Auto) 0.8 Eos # (Auto) 0.0 Baso # (Auto) 0.0 Immature Gran % 5.0 Nucleated RBC % 0.0 Immature Gran # 0.45 Nucleated RBCs # 0.00 Immature Plt Fraction 0.0 Sodium 143 Potassium 3.9 Chloride 109 H Carbon Dioxide 26 Anion Gap 11.9 BUN 25 H Creatinine 1.20 H GFR Calculation 51 BUN/Creatinine Ratio 20.00 Glucose 189 H POC Glucose Hemoglobin A1c 5.9 Calculated Osmolality 293.0 Calcium 8.4 L Magnesium 2.1 Total Creatine Kinase CK-MB (CK-2) CK and CKMB Interp Troponin I B-Natriuretic Peptide Triglycerides 57 Cholesterol 135 LDL Cholesterol 75.0 VLDL Cholesterol 11.4 HDL Cholesterol 48 Heart Disease Risk Ratio 2.81 Free T4 1.05 TSH 3rd Generation 0.243 L 07/26/17 07/26/17 07/26/17 00:23 05:23 07:56 WBC RBC Hgb Hct MCV MCH MCHC RDW Plt Count MPV Neut % (Auto) Lymph % (Auto) [place] % (Auto) Eos % (Auto) Baso % (Auto) Neut # (Auto) Lymph # (Auto) [place] # (Auto) Eos # (Auto) Baso # (Auto) Immature Gran % Nucleated RBC % Immature Gran # Nucleated RBCs # Immature Plt Fraction Sodium Potassium Chloride Carbon Dioxide Anion Gap BUN Creatinine GFR Calculation BUN/Creatinine Ratio Glucose POC Glucose 138 H Hemoglobin A1c Calculated Osmolality Calcium Magnesium Total Creatine Kinase 154 136 CK-MB (CK-2) 6.0 H 6.2 H CK and CKMB Interp 3.9 4.6 Troponin I 5.420 H D 6.380 H B-Natriuretic Peptide Triglycerides Cholesterol LDL Cholesterol VLDL Cholesterol HDL Cholesterol Heart Disease Risk Ratio Free T4 TSH 3rd Generation Specialty Discharge - Follow Up or Referrals
--- NOTE | 2017-07-26 09:16 | EKG Report ---
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
[2017-07-26 09:32] LABS: Basophils % 0.1 % (0.0-0.8); Eosinophils % 0.3 % (0.00-10.9); Hematocrit 31.4 VOL% (35.7-47.0); Hemoglobin 10.6 GM/DL (12.0-16.0); Immature Granulocytes % 5.5 %; Immature Granulocytes Absolute 0.41 #; Lymphocytes # 1.2 10*3/uL (1.4-4.0); Lymphocytes % 16.6 % (21.3-54.2); Mean Corpuscular HGB Conc 33.8 GM/DL (32-36); Mean Corpuscular Hemoglobin 32 PG (27-34); Mean Corpuscular Volume 95.7 FL (87-102); Mean Platelet Volume 11.2 FL (9.6-12.0); Monocytes # 0.8 10*3/uL (0.11-0.8); Monocytes % 10.6 % (1.7-12.7); Neutrophils % 66.9 % (38.7-73.9); Platelet Count 190 T/CUMM (130-400); Red Blood Count 3.28 MC/CUMM (3.8-5.5); Red Cell Distribution Width 12.5 % (9.3-17.3); White Blood Count 7.4 T/CUMM (4-12)
[2017-07-26 09:42] LABS: PT Patient Result 10.3 SECS; Partial Thromboplastin Time 28.6 SECS (0-40)
[2017-07-26 09:55] LABS: Band Neutrophils 1 % (0-10); Hypochromasia 1+; Lymphocytes 19 % (20-55); Platelet Estimate Normal; Segmented Neutrophils 70 % (50-85); Total Cells Counted 100
[2017-07-26 09:56] LABS: Giant Platelets Few; Ovalocytes Slight
[2017-07-26] MEDS: ASPIRIN EC 81 MG TABLET PO SCH (10:11)
[2017-07-26] MEDS: ATORVASTATIN 40 MG TABLET PO SCH (10:11)
[2017-07-26] MEDS: CLOPIDOGREL 75 MG TABLET PO SCH (10:11)
[2017-07-26] MEDS: FUROSEMIDE 20 MG TABLET PO SCH (10:11)
[2017-07-26] MEDS: PANTOPRAZOLE 40 MG TABLET PO SCH (10:11)
[2017-07-26] MEDS: BENAZEPRIL 10 MG TABLET PO SCH ×2 (10:12→21:07)
[2017-07-26] MEDS: amLODIPine 5 MG TABLET PO SCH (10:12)
[2017-07-26] MEDS: ISOSORBIDE MONONITRATE 30 MG TABLET PO SCH (10:12)
[2017-07-26 10:21] LABS: Vitamin B12 340 PG/ML (211-911)
[2017-07-26 10:36] LABS: CKMB % 4.2 %
[2017-07-26 10:38] LABS: Sedimentation Rate-Westergren 100 MM/HR (0-30)
[2017-07-26 10:39] LABS: Troponin I Only 5.14 NG/ML (0.00-0.045)
[2017-07-26] MEDS: AZITHROMYCIN INJ 500 MG in SODIUM CHLORIDE 0.9% 250 ML IV SCH (11:57)
--- NOTE | 2017-07-26 16:00 | Hospitalist Progress Note ---
Assessment and Plan (1) Hypertension Status: Chronic Current Visit: No (2) Pneumonia Status: Acute Assessment and plan: Rocephin and Azithromycin Current Visit: Yes (3) Anemia Status: Chronic Assessment and plan: Ferritin is wnl Check iron studies Current Visit: Yes (4) Chest pain Status: Acute Assessment and plan: Now resolved Cardiology assisting Current Visit: No Hospitalist: Subjective Interval history: No acute events overnight. She denies any recent chest pain. Her only complaint is of cough. Exam - Constitutional Vitals: Period Temp Pulse Resp BP Sys/Ho Pulse Ox Last 24 Hr 96.9 F-98.5 F 51-71 14-20 105-145/51-67 96-99 General appearance: over weight - Head Head exam: Present: normocephalic, atraumatic - Eye Eye exam: Present: EOMI Pupils: Present: BONITA - ENT ENT exam: Present: normal exam - Neck Neck exam: Present: normal inspection - Respiratory Respiratory exam: Present: clear to auscultation bilaterally. Absent: rhonchi, wheezes - Cardiovascular Cardiovascular exam: Present: regular rate and rhythm - GI/Abdominal GI/Abdominal exam: Present: normal bowel sounds, soft. Absent: tenderness, rebound - Extremities Exam Extremities exam: Present: normal inspection - Back Exam Back exam: Present: normal inspection - Neurological Exam Neurological exam: Present: alert, oriented X3 - Psychiatric Psychiatric exam: Present: normal affect, normal mood - Skin Skin exam: Present: warm, intact Results - Labs CBC & BMP: 07/26/17 09:13 07/26/17 00:23 Specialty Discharge - Follow Up or Referrals
[2017-07-26] MEDS: METOPROLOL TARTRATE 25 MG TABLET PO SCH (21:07)
[2017-07-27 06:11] LABS: Basophils % 0.4 % (0.0-0.8); Eosinophils # 0.2 10*3/uL (0.0-0.87); Eosinophils % 4.9 % (0.00-10.9); Hemoglobin 10.3 GM/DL (12.0-16.0); Immature Granulocytes % 2.4 %; Immature Granulocytes Absolute 0.12 #; Lymphocytes # 1.6 10*3/uL (1.4-4.0); Mean Corpuscular HGB Conc 34.3 GM/DL (32-36); Mean Corpuscular Hemoglobin 33 PG (27-34); Mean Corpuscular Volume 95.2 FL (87-102); Monocytes # 0.6 10*3/uL (0.11-0.8); Monocytes % 11.6 % (1.7-12.7); Neutrophils # 2.4 10*3/uL (1.4-7.4); Neutrophils % 48.7 % (38.7-73.9); Platelet Count 198 T/CUMM (130-400); Red Blood Count 3.15 MC/CUMM (3.8-5.5); Red Cell Distribution Width 12.4 % (9.3-17.3); White Blood Count 4.9 T/CUMM (4-12)
[2017-07-27 06:41] LABS: Calcium 8.3 MG/DL (8.5-10.1); Magnesium 2.2 MG/DL (1.8-2.4); Potassium 3.9 MMOL/L (3.5-5.1)
[2017-07-27] MEDS: ALBUTEROL/IPRATROPIUM 3 ML NEB RESP TX SCH ×3 (07:37→19:37)
[2017-07-27] MEDS: INSULIN REGULAR 100 UNIT/ML SUBCUT SCH ×4 (07:59→20:53)
--- NOTE | 2017-07-27 08:14 | EKG Report ---
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
[2017-07-27] MEDS: amLODIPine 5 MG TABLET PO SCH (09:00)
[2017-07-27] MEDS: ISOSORBIDE MONONITRATE 30 MG TABLET PO SCH (09:00)
[2017-07-27] MEDS: METOPROLOL TARTRATE 25 MG TABLET PO SCH ×2 (09:00→20:52)
[2017-07-27] MEDS: PANTOPRAZOLE 40 MG TABLET PO SCH (09:00)
[2017-07-27] MEDS: BENAZEPRIL 10 MG TABLET PO SCH ×2 (09:00→20:52)
[2017-07-27] MEDS: ATORVASTATIN 40 MG TABLET PO SCH (09:00)
[2017-07-27] MEDS: ASPIRIN EC 81 MG TABLET PO SCH (09:00)
[2017-07-27] MEDS: CLOPIDOGREL 75 MG TABLET PO SCH (09:00)
[2017-07-27] MEDS: FUROSEMIDE 20 MG TABLET PO SCH (09:00)
[2017-07-27] MEDS: cefTRIAXone 1,000 MG in SODIUM CHLORIDE 0.9% 100 ML IV SCH (09:25)
[2017-07-27] MEDS: AZITHROMYCIN INJ 500 MG in SODIUM CHLORIDE 0.9% 250 ML IV SCH (10:25)
--- NOTE | 2017-07-27 12:31 | Cardiology Progress Note ---
Assessment and Plan (1) Hypertension Status: Chronic Assessment and plan: 72-year-old female, followed by Dr. Maria. History of CAD, status post CABG. she was admitted with pneumonia and was noted to have inferolateral repolarization changes mildly elevated cardiac biomarkers, suggestive of demand ischemia. Respiratory issues improving, cough improved -CAD, demand ischemia. Continue aspirin, Plavix. Stopped LMWH. -Added metoprolol 12.5 mg twice daily. Borderline baseline bradycardia, would aim for resting heart rate between 50 and 60 bpm. -Added Imdur 30 mg daily -Continue statin -Keep on telemetry -If she continues to improve with medical management, we may defer inpatient ischemia evaluation, follow up with Dr. Maria Current Visit: No (2) Coronary artery disease Status: Chronic Current Visit: Yes Qualifiers: Coronary Disease-Associated Artery/Lesion type: [place] artery [place] vs. transplanted heart: [place] heart Associated angina: without angina Qualified Code(s): I25.10 - Atherosclerotic heart disease of [place] coronary artery without angina pectoris (3) Hypertension Status: Chronic Current Visit: No Qualifiers: Hypertension type: essential hypertension Qualified Code(s): I10 - Essential (primary) hypertension (4) Anemia Status: Chronic Current Visit: Yes Cardiology - PN: Subj Interval history: She is feeling better. Shortness of breath improved, cough improved. Enzymes suggest demand ischemia. Exam (Progress Note) - Constitutional Vitals: Period Temp Pulse Resp BP Sys/Ho Pulse Ox Last 24 Hr 97.1 F-98 F 50-68 16-20 108-142/53-74 18-99 General appearance: normal weight, over weight - Head Head exam: Present: normal inspection - Eye Eye exam: Absent: conjunctival injection, scleral icterus Pupils: Absent: dilated - ENT ENT exam: Present: normal external ear exam - Neck Neck exam: Present: normal inspection - Respiratory Respiratory exam: Present: decreased breath sounds, prolonged expiratory phase, wheezes. Absent: rhonchi - Cardiovascular Cardiovascular exam: Present: regular rate and rhythm. Absent: JVD, systolic murmur - GI/Abdominal GI/Abdominal exam: Present: normal bowel sounds. Absent: distended - Extremities Exam Extremities exam: Present: normal inspection, normal capillary refill. Absent: edema - Back Exam Back exam: Present: normal inspection - Neurological Exam Neurological exam: Present: alert, oriented X3 - Psychiatric Psychiatric exam: Present: normal affect, normal mood - Skin Skin exam: Present: normal color, warm. Absent: cyanosis Result/EKG - Labs CBC & BMP: 07/27/17 05:59 07/27/17 05:59 Lab Results: I have reviewed the past 24 hour labs Labs: Laboratory Results - last 24 hr 07/26/17 07/26/17 07/26/17 13:07 13:27 15:48 WBC RBC Hgb Hct MCV MCH MCHC RDW Plt Count MPV Neut % (Auto) Lymph % (Auto) [place] % (Auto) Eos % (Auto) Baso % (Auto) Neut # (Auto) Lymph # (Auto) [place] # (Auto) Eos # (Auto) Baso # (Auto) Immature Gran % Nucleated RBC % Immature Gran # Nucleated RBCs # Immature Plt Fraction Sodium Potassium Chloride Carbon Dioxide Anion Gap BUN Creatinine GFR Calculation BUN/Creatinine Ratio Glucose POC Glucose 125 H 132 H Calculated Osmolality Calcium Magnesium Total Creatine Kinase 126 CK-MB (CK-2) 4.8 H Troponin I 4.060 H D 07/26/17 07/26/17 07/27/17 16:34 19:15 05:59 WBC 4.9 D RBC 3.15 L Hgb 10.3 L Hct 30.0 L MCV 95.2 MCH 33 MCHC 34.3 RDW 12.4 Plt Count 198 MPV 11.0 Neut % (Auto) 48.7 Lymph % (Auto) 32.0 [place] % (Auto) 11.6 Eos % (Auto) 4.9 Baso % (Auto) 0.4 Neut # (Auto) 2.4 Lymph # (Auto) 1.6 [place] # (Auto) 0.6 Eos # (Auto) 0.2 Baso # (Auto) 0.0 Immature Gran % 2.4 Nucleated RBC % 0.0 Immature Gran # 0.12 Nucleated RBCs # 0.00 Immature Plt Fraction 0.0 Sodium Potassium Chloride Carbon Dioxide Anion Gap BUN Creatinine GFR Calculation BUN/Creatinine Ratio Glucose POC Glucose 162 H Calculated Osmolality Calcium Magnesium Total Creatine Kinase 117 CK-MB (CK-2) 3.7 H Troponin I 3.240 H D 07/27/17 07/27/17 07/27/17 05:59 07:35 11:09 WBC RBC Hgb Hct MCV MCH MCHC RDW Plt Count MPV Neut % (Auto) Lymph % (Auto) [place] % (Auto) Eos % (Auto) Baso % (Auto) Neut # (Auto) Lymph # (Auto) [place] # (Auto) Eos # (Auto) Baso # (Auto) Immature Gran % Nucleated RBC % Immature Gran # Nucleated RBCs # Immature Plt Fraction Sodium 143 Potassium 3.9 Chloride 109 H Carbon Dioxide 29 Anion Gap 8.9 BUN 28 H Creatinine 1.00 GFR Calculation 64 BUN/Creatinine Ratio 28.00 H Glucose 106 POC Glucose 112 H 146 H Calculated Osmolality 290.0 Calcium 8.3 L Magnesium 2.2 Total Creatine Kinase CK-MB (CK-2) Troponin I - EKG EKG results: interpreted by me Specialty Discharge - Follow Up or Referrals
--- NOTE | 2017-07-27 15:39 | Hospitalist Progress Note ---
Exam - Constitutional Vitals: Period Temp Pulse Resp BP Sys/Ho Pulse Ox Last 24 Hr 97.1 F-98 F 50-68 16-20 108-142/53-74 18-99 Results - Labs CBC & BMP: 07/27/17 05:59 07/27/17 05:59 Specialty Discharge - Follow Up or Referrals
--- NOTE | 2017-07-27 18:32 | Hospitalist Progress Note ---
Assessment and Plan (1) Hypertension Status: Chronic Current Visit: No (2) Pneumonia Status: Acute Assessment and plan: Rocephin and Azithromycin Current Visit: Yes (3) Anemia Status: Chronic Assessment and plan: Ferritin is wnl Current Visit: Yes (4) Chest pain Status: Acute Assessment and plan: Now resolved Cardiology assisting Current Visit: No Hospitalist: Subjective Interval history: No acute events overnight. Patient continues to complain of cough. Exam - Constitutional Vitals: Period Temp Pulse Resp BP Sys/Ho Pulse Ox Last 24 Hr 97.4 F-98 F 50-68 16-19 108-162/53-74 18-99 General appearance: over weight - Head Head exam: Present: normocephalic, atraumatic - Eye Eye exam: Present: EOMI Pupils: Present: BONITA - ENT ENT exam: Present: normal exam - Neck Neck exam: Present: normal inspection - Respiratory Respiratory exam: Present: clear to auscultation bilaterally. Absent: rhonchi, wheezes - Cardiovascular Cardiovascular exam: Present: regular rate and rhythm - GI/Abdominal GI/Abdominal exam: Present: normal bowel sounds, soft. Absent: tenderness, rebound - Extremities Exam Extremities exam: Present: normal inspection - Back Exam Back exam: Present: normal inspection - Neurological Exam Neurological exam: Present: alert, oriented X3 - Psychiatric Psychiatric exam: Present: normal affect, normal mood - Skin Skin exam: Present: warm, intact Results - Labs CBC & BMP: 07/27/17 05:59 07/27/17 05:59 Specialty Discharge - Follow Up or Referrals
[2017-07-27] MEDS: BENZONATATE 100 MG CAPSULE PO SCH (20:52)
[2017-07-28] MEDS: ALBUTEROL/IPRATROPIUM 3 ML NEB RESP TX SCH ×4 (00:36→19:05)
[2017-07-28 04:20] LABS: Basophils % 0.4 % (0.0-0.8); Eosinophils # 0.4 10*3/uL (0.0-0.87); Eosinophils % 8.2 % (0.00-10.9); Hematocrit 30.5 VOL% (35.7-47.0); Hemoglobin 10.2 GM/DL (12.0-16.0); Immature Granulocytes % 3.1 %; Immature Granulocytes Absolute 0.15 #; Lymphocytes # 1.6 10*3/uL (1.4-4.0); Lymphocytes % 32.7 % (21.3-54.2); Mean Corpuscular HGB Conc 33.4 GM/DL (32-36); Mean Corpuscular Hemoglobin 32 PG (27-34); Mean Corpuscular Volume 95.3 FL (87-102); Mean Platelet Volume 10.9 FL (9.6-12.0); Monocytes # 0.5 10*3/uL (0.11-0.8); Monocytes % 10.3 % (1.7-12.7); Neutrophils # 2.2 10*3/uL (1.4-7.4); Neutrophils % 45.3 % (38.7-73.9); Platelet Count 189 T/CUMM (130-400); Red Cell Distribution Width 12.3 % (9.3-17.3); White Blood Count 4.8 T/CUMM (4-12)
[2017-07-28 05:27] LABS: Calcium 8.5 MG/DL (8.5-10.1); Magnesium 2.3 MG/DL (1.8-2.4); Osmolality,Calculated 289.8 MOS/KG (273-304); Potassium 3.8 MMOL/L (3.5-5.1)
[2017-07-28] MEDS: INSULIN REGULAR 100 UNIT/ML SUBCUT SCH ×4 (09:34→21:01)
[2017-07-28] MEDS: cefTRIAXone 1,000 MG in SODIUM CHLORIDE 0.9% 100 ML IV SCH (09:36)
[2017-07-28] MEDS: ISOSORBIDE MONONITRATE 30 MG TABLET PO SCH (09:37)
[2017-07-28] MEDS: BENAZEPRIL 10 MG TABLET PO SCH ×2 (09:37→20:58)
[2017-07-28] MEDS: ASPIRIN EC 81 MG TABLET PO SCH (09:37)
[2017-07-28] MEDS: PANTOPRAZOLE 40 MG TABLET PO SCH (09:37)
[2017-07-28] MEDS: CLOPIDOGREL 75 MG TABLET PO SCH (09:37)
[2017-07-28] MEDS: FUROSEMIDE 20 MG TABLET PO SCH (09:37)
[2017-07-28] MEDS: METOPROLOL TARTRATE 25 MG TABLET PO SCH ×2 (09:38→20:55)
[2017-07-28] MEDS: amLODIPine 5 MG TABLET PO SCH (09:38)
[2017-07-28] MEDS: ATORVASTATIN 40 MG TABLET PO SCH (09:38)
[2017-07-28] MEDS: BENZONATATE 100 MG CAPSULE PO SCH ×2 (09:42→20:55)
--- NOTE | 2017-07-28 13:12 | Cardiology Progress Note ---
Assessment and Plan (1) Hypertension Status: Chronic Assessment and plan: 72-year-old female, followed by Dr. Maria. History of CAD, status post CABG. she was admitted with pneumonia and was noted to have inferolateral repolarization changes mildly elevated cardiac biomarkers, suggestive of demand ischemia. Respiratory issues improving, cough improved. Mild sinus bradycardia -CAD, demand ischemia. Continue aspirin, Plavix. Stopped LMWH, there is no ACS. -Added metoprolol 12.5 mg twice daily. Borderline baseline bradycardia, would aim for resting heart rate between 50 and 60 bpm. -Added Imdur 30 mg daily -Continue statin -If she continues to improve with medical management, we may defer inpatient ischemia evaluation. -She may be moved off the telemetry floor. Current Visit: No (2) Coronary artery disease Status: Chronic Current Visit: Yes Qualifiers: Coronary Disease-Associated Artery/Lesion type: [place] artery [place] vs. transplanted heart: [place] heart Associated angina: without angina Qualified Code(s): I25.10 - Atherosclerotic heart disease of [place] coronary artery without angina pectoris (3) Hypertension Status: Chronic Current Visit: No Qualifiers: Hypertension type: essential hypertension Qualified Code(s): I10 - Essential (primary) hypertension (4) Anemia Status: Chronic Current Visit: Yes Cardiology - PN: Subj Interval history: She is feeling better, although still has bilateral lung infiltrates, cough. Continues to be mildly bradycardic. Exam (Progress Note) - Constitutional Vitals: Period Temp Pulse Resp BP Sys/Ho Pulse Ox Last 24 Hr 97.5 F-99 F 51-65 17-20 115-167/62-71 18-98 General appearance: no acute distress, over weight - Head Head exam: Present: normal inspection, normocephalic - Eye Eye exam: Absent: conjunctival injection, scleral icterus Pupils: Absent: dilated - ENT ENT exam: Present: normal external ear exam - Neck Neck exam: Present: normal inspection - Respiratory Respiratory exam: Present: decreased breath sounds, rhonchi. Absent: accessory muscle use, stridor, wheezes - Cardiovascular Cardiovascular exam: Present: regular rate and rhythm. Absent: JVD, systolic murmur - GI/Abdominal GI/Abdominal exam: Present: normal bowel sounds. Absent: distended - Extremities Exam Extremities exam: Present: normal inspection, normal capillary refill. Absent: edema - Back Exam Back exam: Present: normal inspection - Neurological Exam Neurological exam: Present: alert, oriented X3 - Psychiatric Psychiatric exam: Present: normal affect, normal mood - Skin Skin exam: Present: normal color, warm. Absent: cyanosis Result/EKG - Labs CBC & BMP: 07/28/17 04:00 07/28/17 04:00 Lab Results: I have reviewed the past 24 hour labs Labs: Laboratory Results - last 24 hr 07/27/17 07/27/17 07/28/17 16:13 19:13 04:00 WBC 4.8 RBC 3.20 L Hgb 10.2 L Hct 30.5 L MCV 95.3 MCH 32 MCHC 33.4 RDW 12.3 Plt Count 189 MPV 10.9 Neut % (Auto) 45.3 Lymph % (Auto) 32.7 [place] % (Auto) 10.3 Eos % (Auto) 8.2 Baso % (Auto) 0.4 Neut # (Auto) 2.2 Lymph # (Auto) 1.6 [place] # (Auto) 0.5 Eos # (Auto) 0.4 Baso # (Auto) 0.0 Immature Gran % 3.1 Nucleated RBC % 0.0 Immature Gran # 0.15 Nucleated RBCs # 0.00 Immature Plt Fraction 0.0 Sodium Potassium Chloride Carbon Dioxide Anion Gap BUN Creatinine GFR Calculation BUN/Creatinine Ratio Glucose POC Glucose 134 H 141 H Calculated Osmolality Calcium Magnesium 07/28/17 07/28/17 07/28/17 04:00 07:27 12:17 WBC RBC Hgb Hct MCV MCH MCHC RDW Plt Count MPV Neut % (Auto) Lymph % (Auto) [place] % (Auto) Eos % (Auto) Baso % (Auto) Neut # (Auto) Lymph # (Auto) [place] # (Auto) Eos # (Auto) Baso # (Auto) Immature Gran % Nucleated RBC % Immature Gran # Nucleated RBCs # Immature Plt Fraction Sodium 144 Potassium 3.8 Chloride 109 H Carbon Dioxide 29 Anion Gap 9.8 BUN 22 H Creatinine 1.00 GFR Calculation 63 BUN/Creatinine Ratio 22.00 H Glucose 111 H POC Glucose 112 H 112 H Calculated Osmolality 289.8 Calcium 8.5 Magnesium 2.3 - EKG EKG results: interpreted by me Specialty Discharge - Follow Up or Referrals
--- NOTE | 2017-07-28 17:28 | Hospitalist Progress Note ---
Assessment and Plan (1) Hypertension Status: Chronic Current Visit: No (2) Pneumonia Status: Acute Assessment and plan: Rocephin and Azithromycin Current Visit: Yes (3) Anemia Status: Chronic Assessment and plan: Ferritin is wnl Current Visit: Yes (4) Chest pain Status: Acute Assessment and plan: Now resolved Cardiology assisting Current Visit: No Hospitalist: Subjective Interval history: No acute events overnight. Patient still with cough, not improved. Exam - Constitutional Vitals: Period Temp Pulse Resp BP Sys/Ho Pulse Ox Last 24 Hr 97.5 F-99 F 49-65 17-20 115-167/60-71 18-98 General appearance: over weight - Head Head exam: Present: normocephalic, atraumatic - Eye Eye exam: Present: EOMI Pupils: Present: BONITA - ENT ENT exam: Present: normal exam - Neck Neck exam: Present: normal inspection - Respiratory Respiratory exam: Present: clear to auscultation bilaterally. Absent: rhonchi, wheezes - Cardiovascular Cardiovascular exam: Present: regular rate and rhythm - GI/Abdominal GI/Abdominal exam: Present: normal bowel sounds, soft. Absent: tenderness, rebound - Extremities Exam Extremities exam: Present: normal inspection - Back Exam Back exam: Present: normal inspection - Neurological Exam Neurological exam: Present: alert, oriented X3 - Psychiatric Psychiatric exam: Present: normal affect, normal mood - Skin Skin exam: Present: warm, intact Results - Labs CBC & BMP: 07/28/17 04:00 07/28/17 04:00 Specialty Discharge - Follow Up or Referrals
[2017-07-29] MEDS: ALBUTEROL/IPRATROPIUM 3 ML NEB RESP TX SCH ×4 (00:08→19:51)
[2017-07-29 06:07] LABS: Basophils % 0.4 % (0.0-0.8); Eosinophils # 0.4 10*3/uL (0.0-0.87); Eosinophils % 6.4 % (0.00-10.9); Hematocrit 30.8 VOL% (35.7-47.0); Hemoglobin 10.4 GM/DL (12.0-16.0); Immature Granulocytes % 1.8 %; Lymphocytes # 1.5 10*3/uL (1.4-4.0); Lymphocytes % 27.3 % (21.3-54.2); Mean Corpuscular HGB Conc 33.8 GM/DL (32-36); Mean Corpuscular Hemoglobin 32 PG (27-34); Mean Corpuscular Volume 95.1 FL (87-102); Mean Platelet Volume 11.4 FL (9.6-12.0); Monocytes # 0.5 10*3/uL (0.11-0.8); Monocytes % 9.3 % (1.7-12.7); Neutrophils # 3.1 10*3/uL (1.4-7.4); Neutrophils % 54.8 % (38.7-73.9); Platelet Count 208 T/CUMM (130-400); Red Blood Count 3.24 MC/CUMM (3.8-5.5); Red Cell Distribution Width 12.2 % (9.3-17.3); White Blood Count 5.6 T/CUMM (4-12)
[2017-07-29 06:40] LABS: Calcium 8.5 MG/DL (8.5-10.1); Magnesium 2.3 MG/DL (1.8-2.4); Osmolality,Calculated 291.8 MOS/KG (273-304); Potassium 4.1 MMOL/L (3.5-5.1)
[2017-07-29 07:14] LABS: Hemoglobin A1 (Alkaline) 97.8 % (96.5-98.5); Hemoglobin A2 (Alkaline) 2.2 % (1.5-3.5)
[2017-07-29] MEDS: ASPIRIN EC 81 MG TABLET PO SCH (09:22)
[2017-07-29] MEDS: ATORVASTATIN 40 MG TABLET PO SCH (09:22)
[2017-07-29] MEDS: BENZONATATE 100 MG CAPSULE PO SCH ×2 (09:23→22:39)
[2017-07-29] MEDS: PANTOPRAZOLE 40 MG TABLET PO SCH (09:23)
[2017-07-29] MEDS: FUROSEMIDE 20 MG TABLET PO SCH (09:23)
[2017-07-29] MEDS: BENAZEPRIL 10 MG TABLET PO SCH ×2 (09:23→22:38)
[2017-07-29] MEDS: METOPROLOL TARTRATE 25 MG TABLET PO SCH ×2 (09:23→22:37)
[2017-07-29] MEDS: CLOPIDOGREL 75 MG TABLET PO SCH (09:23)
[2017-07-29] MEDS: amLODIPine 5 MG TABLET PO SCH (09:23)
[2017-07-29] MEDS: ISOSORBIDE MONONITRATE 30 MG TABLET PO SCH (09:23)
[2017-07-29] MEDS: INSULIN REGULAR 100 UNIT/ML SUBCUT SCH ×4 (09:24→22:40)
[2017-07-29] MEDS: cefTRIAXone 1,000 MG in SODIUM CHLORIDE 0.9% 100 ML IV SCH (11:08)
--- NOTE | 2017-07-29 12:52 | Hospitalist Progress Note ---
Assessment and Plan (1) Pneumonia Status: Acute Assessment and plan: The patient is admitted hospital for treatment of pneumonia. I am going to add Levaquin to the patient's Rocephin medicine and follow-up chest x-ray and CBC and basic metabolic profile tomorrow. Current Visit: Yes Qualifiers: Pneumonia type: due to Pneumococcus (2) NSTEMI (non-ST elevated myocardial infarction) Status: Acute Current Visit: Yes (3) Diabetes Status: Chronic Current Visit: Yes Qualifiers: Diabetes mellitus type: type 2 Hospitalist: Subjective Interval history: The patient is receiving treatment for pneumonia. The patient has been on Rocephin. The patient still has some cough with sputum production. Exam - Constitutional Vitals: Period Temp Pulse Resp BP Sys/Ho Pulse Ox Last 24 Hr 97.2 F-98.6 F 51-63 17-20 121-177/57-89 92-98 Exam: Constitutional System: Mild distress. No tremulousness. Paroxysmal cough with [place] colored sputum Head: Normocephalic, atraumatic. Ears, Nose and Throat System: No evidence of Otitis or Mastoiditis. No epistaxis or discharge Eyes System: Pupils equal, round, and reactive. Extraocular muscles intact. Neck: Supple, without adenopathy, No jugular venous distention. No thyromegaly , neck mass, or prior surgery apparent. Respiratory System: Chest diffuse rhonchi worse on the right to auscultation. Cardiovascular System: Heart with regular rate and rhythm. No murmur. GI System: Abdomen soft, nontender. Normo active bowel sounds present. Results - Labs CBC & BMP: 07/29/17 04:16 07/29/17 04:16 Lab Results: I have reviewed the past 24 hour labs Specialty Discharge - Follow Up or Referrals
[2017-07-29] MEDS: LEVOFLOXACIN INJ 500 MG in PREMIX 1 EACH IV SCH (13:17)
--- NOTE | 2017-07-29 14:44 | Cardiology Progress Note ---
Assessment and Plan (1) NSTEMI (non-ST elevated myocardial infarction) Status: Acute Assessment and plan: SEE PLAN OF CARE LISTED BELOW. Current Visit: Yes (2) Pneumonia Status: Acute Assessment and plan: SEE PLAN OF CARE LISTED BELOW. Current Visit: Yes Qualifiers: Pneumonia type: due to Pneumococcus (3) Acute dyspnea Status: Acute Assessment and plan: SEE PLAN OF CARE LISTED BELOW. Current Visit: Yes (4) Coronary artery disease Status: Chronic Assessment and plan: SEE PLAN OF CARE LISTED BELOW. Current Visit: Yes Qualifiers: Coronary Disease-Associated Artery/Lesion type: [place] artery [place] vs. transplanted heart: [place] heart Associated angina: without angina Qualified Code(s): I25.10 - Atherosclerotic heart disease of [place] coronary artery without angina pectoris (5) Dyslipidemia Status: Chronic Assessment and plan: SEE PLAN OF CARE LISTED BELOW. 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 Current Visit: No (7) Obesity (BMI 30.0-34.9) Status: Chronic Assessment and plan: SEE PLAN OF CARE LISTED BELOW. Current Visit: No (8) Diabetes Status: Chronic Assessment and plan: SEE PLAN OF CARE LISTED BELOW. Current Visit: Yes Qualifiers: Diabetes mellitus type: type 2 (9) Anemia Status: Chronic Assessment and plan: SEE PLAN OF CARE LISTED BELOW. Current Visit: Yes (10) Hypertension Status: Chronic Assessment and plan: SEE PLAN OF CARE LISTED BELOW. 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 Maria SUMMARY Ms. Callahan is a 72 year old female with known history of coronary artery disease, routinely followed by Dr. Maria. Cardiac risk factors include: Diabetes, hypertension, dyslipidemia, obesity, sedentary lifestyle and family history of premature CAD. She underwent heart catheterization 2015 which revealed severe triple-vessel coronary disease and is status post coronary bypass grafting 2 with internal mammary graft to LAD and SVG to RCA December 2015. Her most recent heart catheterization was performed May 24, 2017, status post successful PCI of the ostial, body and distal SVG to RCA. Preserved ejection fraction. Moderate ostial left circumflex, distal left main disease noted. Patient was at [facility] being treated for pneumonia when she developed chest pain. Subsequently, she was transferred to our facility for further evaluation. Cardiac biomarkers were elevated and patient was diagnosed with non-ST elevation [place]. Invasive workup was postponed given patient's significant dyspnea and cough secondary to acute pneumonia as well as anemia. Medical management was initiated. Patient has done very well with medical management. No recurrent chest pain, heaviness or tightness noted. Troponin is trending downward. 2016 Patient seen and examined the telemetry unit. She is without complaint of chest pain, heaviness or tightness. Tolerating medical management well. She continues to have persistent cough, wheezing and dyspnea. Reports that she is unable to lie flat. Hemodynamically stable. Labs reviewed. Continue current plan of care. I will discuss with Dr. Moran regarding timing of invasive workup. Further plan and addendum to follow. IMPRESSION AND PLAN 1. NON-ST ELEVATION [place] - Continues to be chest pain-free. Tolerating medical management well. Troponin trending down. Continue dual antiplatelet therapy, lipid-lowering agent, JOSE ENRIQUE inhibitor, beta blockade and nitrates. Patient continues to have persistent cough and dyspnea. Plan for ischemic evaluation with [facility] once her pneumonia completely resolves. I will discuss with Dr. Moran guarding timing of invasive workup. Further plan and addendum to follow. 2. KNOWN CAD, STATUS POST CABG - Continue dual antiplatelet therapy, lipid- lowering agent, JOSE ENRIQUE inhibitor, beta blockade and nitrates. 3. PNEUMONIA - Slow to improve. Continue antibiotics. Afebrile. Continues to have productive cough. Treatment per hospital medicine. Levaquin added today. Chest x-ray tomorrow. 4. HYPERTENSION - Well controlled. 5. DYSLIPIDEMIA - LDL 75. Continue lipid-lowering agent. 6. DIABETES - Continue sliding scale insulin. Accu-Cheks before meals and at bedtime. 7. OBESITY - Weight loss encouraged via regular exercise and dietary restriction. 8. ANEMIA - Chronic, stable on dual antiplatelet therapy. Stool negative for occult blood continue with daily CBC. Exam (Progress Note) - Constitutional Vitals: Period Temp Pulse Resp BP Sys/Ho Pulse Ox Last 24 Hr 97.2 F-98.6 F 51-63 17-20 121-177/57-89 92-99 Exam: General: Appears well with no apparent distress. Pleasant and cooperative. Appears comfortable. HEENT: PERRL, normocephalic, atraumatic. Mucous membranes moist. No jaundice noted. Conjunctiva moist and clear, sclerae anicteric Neck: No JVD/HJR, no thyromegaly or lymphadenopathy noted. No carotid bruit appreciated Cardiac: Regular rate and rhythm. No murmur rub or gallop. Lungs: Decreased lung sounds. Cough with deep inspiration. Oxygen via nasal cannula. Abdomen: Soft, bowel sounds normoactive. Nontender and nondistended. No abdominal bruit or thrill noted. No masses noted. Extremities: No clubbing, cyanosis noted. No edema noted. Upper extremity pulses 2+. Lower extremity pulses 2+. Capillary refill less than 3 seconds. Skin: No unusual lesions or rashes. No skin breakdown appreciated. Neuro: Awake, alert and oriented 3. Moves all extremities well without hemiparesis or paralysis. No essential tremor is appreciated. Result/EKG - Labs CBC & BMP: 07/29/17 04:16 07/29/17 04:16 Lab Results: I have reviewed the past 24 hour labs Labs: Laboratory Results - last 24 hr 07/26/17 07/26/17 07/28/17 09:13 09:13 16:33 WBC RBC Hgb Hct MCV MCH MCHC RDW Plt Count MPV Neut % (Auto) Lymph % (Auto) [place] % (Auto) Eos % (Auto) Baso % (Auto) Neut # (Auto) Lymph # (Auto) [place] # (Auto) Eos # (Auto) Baso # (Auto) Immature Gran % Nucleated RBC % Immature Gran # Nucleated RBCs # Anemia Panel Interp See comment Immature Plt Fraction Hemoglobin A1 97.8 Hemoglobin A2 2.2 Hgb ELP Interp See comment Sodium Potassium Chloride Carbon Dioxide Anion Gap BUN Creatinine GFR Calculation BUN/Creatinine Ratio Glucose POC Glucose 114 H Calculated Osmolality Calcium Magnesium 07/28/17 07/29/17 07/29/17 20:00 04:16 04:16 WBC 5.6 RBC 3.24 L Hgb 10.4 L Hct 30.8 L MCV 95.1 MCH 32 MCHC 33.8 RDW 12.2 Plt Count 208 MPV 11.4 Neut % (Auto) 54.8 Lymph % (Auto) 27.3 [place] % (Auto) 9.3 Eos % (Auto) 6.4 Baso % (Auto) 0.4 Neut # (Auto) 3.1 Lymph # (Auto) 1.5 [place] # (Auto) 0.5 Eos # (Auto) 0.4 Baso # (Auto) 0.0 Immature Gran % 1.8 Nucleated RBC % 0.0 Immature Gran # 0.10 Nucleated RBCs # 0.00 Anemia Panel Interp Immature Plt Fraction 0.0 Hemoglobin A1 Hemoglobin A2 Hgb ELP Interp Sodium 144 Potassium 4.1 Chloride 109 H Carbon Dioxide 29 Anion Gap 10.1 BUN 27 H Creatinine 0.90 GFR Calculation 71 BUN/Creatinine Ratio 30.00 H Glucose 110 H POC Glucose 133 H Calculated Osmolality 291.8 Calcium 8.5 Magnesium 2.3 07/29/17 07/29/17 08:04 12:03 WBC RBC Hgb Hct MCV MCH MCHC RDW Plt Count MPV Neut % (Auto) Lymph % (Auto) [place] % (Auto) Eos % (Auto) Baso % (Auto) Neut # (Auto) Lymph # (Auto) [place] # (Auto) Eos # (Auto) Baso # (Auto) Immature Gran % Nucleated RBC % Immature Gran # Nucleated RBCs # Anemia Panel Interp Immature Plt Fraction Hemoglobin A1 Hemoglobin A2 Hgb ELP Interp Sodium Potassium Chloride Carbon Dioxide Anion Gap BUN Creatinine GFR Calculation BUN/Creatinine Ratio Glucose POC Glucose 119 H 132 H Calculated Osmolality Calcium Magnesium Specialty Discharge - Follow Up or Referrals
[2017-07-30] MEDS: ALBUTEROL/IPRATROPIUM 3 ML NEB RESP TX SCH ×4 (01:03→19:53)
[2017-07-30 05:23] LABS: Basophils % 0.5 % (0.0-0.8); Eosinophils # 0.3 10*3/uL (0.0-0.87); Eosinophils % 5.8 % (0.00-10.9); Hematocrit 30.4 VOL% (35.7-47.0); Hemoglobin 10.3 GM/DL (12.0-16.0); Immature Granulocytes % 1.2 %; Immature Granulocytes Absolute 0.07 #; Lymphocytes # 1.5 10*3/uL (1.4-4.0); Lymphocytes % 27.2 % (21.3-54.2); Mean Corpuscular HGB Conc 33.9 GM/DL (32-36); Mean Corpuscular Hemoglobin 32 PG (27-34); Mean Corpuscular Volume 94.7 FL (87-102); Mean Platelet Volume 11.2 FL (9.6-12.0); Monocytes # 0.5 10*3/uL (0.11-0.8); Neutrophils # 3.2 10*3/uL (1.4-7.4); Neutrophils % 56.3 % (38.7-73.9); Platelet Count 236 T/CUMM (130-400); Red Blood Count 3.21 MC/CUMM (3.8-5.5); Red Cell Distribution Width 12.2 % (9.3-17.3); White Blood Count 5.7 T/CUMM (4-12)
[2017-07-30 06:03] LABS: Calcium 8.6 MG/DL (8.5-10.1); Magnesium 2.3 MG/DL (1.8-2.4); Potassium 4.1 MMOL/L (3.5-5.1)
[2017-07-30 06:11] LABS: Troponin I Only 0.326 NG/ML (0.00-0.045)
--- NOTE | 2017-07-30 08:22 | XRay Report ---
History is follow-up pneumonia Comparison 07/26/2017 The heart is enlarged with prior median sternotomy There has been mild improved aeration in the lung bases. Minimal patchy and stranding opacities remain in the right base without more focal consolidation. Minimal chronic thickening in the minor fissure again seen. Impression: 1. Mild improved aeration in the lung bases with minimal residual atelectasis in the right base. 2. Cardiomegaly and chronic vascular congestion PROCEDURE INTERPRETED AT [facility] DEPARTMENT OF RADIOLOGY Final Report Signed by: Dr. Emily Tabor
--- NOTE | 2017-07-30 08:43 | Cardiology Progress Note ---
Assessment and Plan (1) NSTEMI (non-ST elevated myocardial infarction) Status: Acute Assessment and plan: SEE PLAN OF CARE LISTED BELOW. Current Visit: Yes (2) Pneumonia Status: Acute Assessment and plan: SEE PLAN OF CARE LISTED BELOW. Current Visit: Yes Qualifiers: Pneumonia type: due to Pneumococcus (3) Acute dyspnea Status: Acute Assessment and plan: SEE PLAN OF CARE LISTED BELOW. Current Visit: Yes (4) Coronary artery disease Status: Chronic Assessment and plan: SEE PLAN OF CARE LISTED BELOW. Current Visit: Yes Qualifiers: Coronary Disease-Associated Artery/Lesion type: [place] artery [place] vs. transplanted heart: [place] heart Associated angina: without angina Qualified Code(s): I25.10 - Atherosclerotic heart disease of [place] coronary artery without angina pectoris (5) Dyslipidemia Status: Chronic Assessment and plan: SEE PLAN OF CARE LISTED BELOW. 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 Current Visit: No (7) Obesity (BMI 30.0-34.9) Status: Chronic Assessment and plan: SEE PLAN OF CARE LISTED BELOW. Current Visit: No (8) Diabetes Status: Chronic Assessment and plan: SEE PLAN OF CARE LISTED BELOW. Current Visit: Yes Qualifiers: Diabetes mellitus type: type 2 (9) Anemia Status: Chronic Assessment and plan: SEE PLAN OF CARE LISTED BELOW. Current Visit: Yes (10) Hypertension Status: Chronic Assessment and plan: SEE PLAN OF CARE LISTED BELOW. 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 Maria SUMMARY Ms. Callahan is a 72 year old female with known history of coronary artery disease, routinely followed by Dr. Maria. Cardiac risk factors include: Diabetes, hypertension, dyslipidemia, obesity, sedentary lifestyle and family history of premature CAD. She underwent heart catheterization 2015 which revealed severe triple-vessel coronary disease and is status post coronary bypass grafting 2 with internal mammary graft to LAD and SVG to RCA December 2015. Her most recent heart catheterization was performed May 24, 2017, status post successful PCI of the ostial, body and distal SVG to RCA. Preserved ejection fraction. Moderate ostial left circumflex, distal left main disease noted. Patient was at [facility] being treated for pneumonia when she developed chest pain. Subsequently, she was transferred to our facility for further evaluation. Cardiac biomarkers were elevated and patient was diagnosed with non-ST elevation [place]. Invasive workup was postponed given patient's significant dyspnea and cough secondary to acute pneumonia as well as anemia. Medical management was initiated. Patient has done very well with medical management. No recurrent chest pain, heaviness or tightness noted. Troponin is trending downward. Without angina. 2016 She was seen and examined the telemetry unit. She continues to improve. However, she continues to complain of persistent productive cough. Afebrile. Continue to treat pneumonia. I have discussed this patient in detail with Dr. Jennifer Maria as he is her primary music artist. Patient has small vessel disease. Given her acute pneumonia we will hold off on invasive evaluation this hospitalization as she has been without angina and tolerating medical management well. Troponin trending down. Recommend to continue to treat patient's underlying pneumonia. She will be given an appointment for outpatient stress test in 2 weeks. She will then follow with Dr. Maria 1 week following stress test in order to review results of this study. Recommend continue dual antiplatelet therapy, lipid-lowering agent, JOSE ENRIQUE inhibitor beta blockade and nitrates. At this point, patient is doing reasonably well from a cardiac standpoint and we will sign off. Please call if have any further questions. IMPRESSION AND PLAN 1. NON-ST ELEVATION [place] - Continues to be chest pain-free. Tolerating medical management well. Troponin trending down. Given her acute pneumonia we will hold off on invasive evaluation this hospitalization as she has been without angina and tolerating medical management well. Troponin trending down. Recommend to continue to treat patient's underlying pneumonia. She will be given an appointment for outpatient stress test in 2 weeks. She will then follow with Dr. Maria 1 week following stress test in order to review results of this study. Recommend continue dual antiplatelet therapy, lipid-lowering agent, JOSE ENRIQUE inhibitor beta blockade and nitrates. At this point, patient is doing reasonably well from a cardiac standpoint and we will sign off. Please call if have any further questions. 2. KNOWN CAD, STATUS POST CABG - Continue dual antiplatelet therapy, lipid- lowering agent, JOSE ENRIQUE inhibitor, beta blockade and nitrates. 3. PNEUMONIA - Slow to improve. Continue antibiotics. Afebrile. Continues to have productive cough. Treatment per hospital medicine. Levaquin added yesterday. 4. HYPERTENSION -isolated episode of hypertension this morning. Will monitor this. Can adjust medications if blood pressure continues to be high. 5. DYSLIPIDEMIA - LDL 75. Continue lipid-lowering agent. 6. DIABETES - Continue sliding scale insulin. Accu-Cheks before meals and at bedtime. 7. OBESITY - Weight loss encouraged via regular exercise and dietary restriction. 8. ANEMIA - Chronic, stable on dual antiplatelet therapy. Stool negative for occult blood continue with daily CBC. Exam (Progress Note) - Constitutional Vitals: Period Temp Pulse Resp BP Sys/Ho Pulse Ox Last 24 Hr 97.6 F-98.7 F 53-60 18-22 111-180/60-74 90-99 Exam: General: Appears well with no apparent distress. Pleasant and cooperative. Appears comfortable. HEENT: PERRL, normocephalic, atraumatic. Mucous membranes moist. No jaundice noted. Conjunctiva moist and clear, sclerae anicteric Neck: No JVD/HJR, no thyromegaly or lymphadenopathy noted. No carotid bruit appreciated Cardiac: Regular rate and rhythm. No murmur rub or gallop. Lungs: Decreased lung sounds. Cough with deep inspiration. Oxygen via nasal cannula. Abdomen: Soft, bowel sounds normoactive. Nontender and nondistended. No abdominal bruit or thrill noted. No masses noted. Extremities: No clubbing, cyanosis noted. No edema noted. Upper extremity pulses 2+. Lower extremity pulses 2+. Capillary refill less than 3 seconds. Skin: No unusual lesions or rashes. No skin breakdown appreciated. Neuro: Awake, alert and oriented 3. Moves all extremities well without hemiparesis or paralysis. No essential tremor is appreciated. Result/EKG - Labs CBC & BMP: 07/30/17 04:11 07/30/17 04:11 Lab Results: I have reviewed the past 24 hour labs Labs: Laboratory Results - last 24 hr 07/29/17 07/29/17 07/29/17 12:03 15:23 19:29 WBC RBC Hgb Hct MCV MCH MCHC RDW Plt Count MPV Neut % (Auto) Lymph % (Auto) [place] % (Auto) Eos % (Auto) Baso % (Auto) Neut # (Auto) Lymph # (Auto) [place] # (Auto) Eos # (Auto) Baso # (Auto) Immature Gran % Nucleated RBC % Immature Gran # Nucleated RBCs # Immature Plt Fraction Sodium Potassium Chloride Carbon Dioxide Anion Gap BUN Creatinine GFR Calculation BUN/Creatinine Ratio Glucose POC Glucose 132 H 131 H 150 H Calculated Osmolality Calcium Magnesium Total Creatine Kinase CK-MB (CK-2) Troponin I 07/30/17 07/30/17 07/30/17 04:11 04:11 04:11 WBC 5.7 RBC 3.21 L Hgb 10.3 L Hct 30.4 L MCV 94.7 MCH 32 MCHC 33.9 RDW 12.2 Plt Count 236 MPV 11.2 Neut % (Auto) 56.3 Lymph % (Auto) 27.2 [place] % (Auto) 9.0 Eos % (Auto) 5.8 Baso % (Auto) 0.5 Neut # (Auto) 3.2 Lymph # (Auto) 1.5 [place] # (Auto) 0.5 Eos # (Auto) 0.3 Baso # (Auto) 0.0 Immature Gran % 1.2 Nucleated RBC % 0.0 Immature Gran # 0.07 Nucleated RBCs # 0.00 Immature Plt Fraction 0.0 Sodium 143 Potassium 4.1 Chloride 108 H Carbon Dioxide 27 Anion Gap 12.1 BUN 18 Creatinine 1.00 GFR Calculation 63 BUN/Creatinine Ratio 18.00 Glucose 105 POC Glucose Calculated Osmolality 286.0 Calcium 8.6 Magnesium 2.3 Total Creatine Kinase 41 D CK-MB (CK-2) < 1.0 Troponin I 0.326 H D 07/30/17 07:58 WBC RBC Hgb Hct MCV MCH MCHC RDW Plt Count MPV Neut % (Auto) Lymph % (Auto) [place] % (Auto) Eos % (Auto) Baso % (Auto) Neut # (Auto) Lymph # (Auto) [place] # (Auto) Eos # (Auto) Baso # (Auto) Immature Gran % Nucleated RBC % Immature Gran # Nucleated RBCs # Immature Plt Fraction Sodium Potassium Chloride Carbon Dioxide Anion Gap BUN Creatinine GFR Calculation BUN/Creatinine Ratio Glucose POC Glucose 109 H Calculated Osmolality Calcium Magnesium Total Creatine Kinase CK-MB (CK-2) Troponin I Specialty Discharge - Follow Up or Referrals Follow up with: Jennifer Maria DO [Physician] - 2 Weeks (Please schedule outpatient stress test in 2 weeks at [facility] in 2 weeks. She will then need a follow-up appoint with Dr. Maria 1 week following stress test.)
[2017-07-30] MEDS: INSULIN REGULAR 100 UNIT/ML SUBCUT SCH ×4 (08:47→21:47)
[2017-07-30] MEDS: ATORVASTATIN 40 MG TABLET PO SCH (09:30)
[2017-07-30] MEDS: ASPIRIN EC 81 MG TABLET PO SCH (09:30)
[2017-07-30] MEDS: METOPROLOL TARTRATE 25 MG TABLET PO SCH ×2 (09:30→21:46)
[2017-07-30] MEDS: BENZONATATE 100 MG CAPSULE PO SCH ×2 (09:31→21:46)
[2017-07-30] MEDS: BENAZEPRIL 10 MG TABLET PO SCH ×2 (09:31→21:46)
[2017-07-30] MEDS: ISOSORBIDE MONONITRATE 30 MG TABLET PO SCH (09:31)
[2017-07-30] MEDS: amLODIPine 5 MG TABLET PO SCH (09:32)
[2017-07-30] MEDS: PANTOPRAZOLE 40 MG TABLET PO SCH (09:32)
[2017-07-30] MEDS: CLOPIDOGREL 75 MG TABLET PO SCH (09:32)
[2017-07-30] MEDS: cefTRIAXone 1,000 MG in SODIUM CHLORIDE 0.9% 100 ML IV SCH (09:32)
[2017-07-30] MEDS: FUROSEMIDE 20 MG TABLET PO SCH (09:32)
[2017-07-30] MEDS: LEVOFLOXACIN INJ 500 MG in PREMIX 1 EACH IV SCH (13:16)
--- NOTE | 2017-07-30 17:29 | Hospitalist Progress Note ---
Assessment and Plan (1) Pneumonia Status: Acute Assessment and plan: The patient is admitted hospital for treatment of pneumonia. I am going to continue Levaquin and Rocephin medicine; CBC and basic metabolic profile tomorrow. Current Visit: Yes Qualifiers: Pneumonia type: due to Pneumococcus (2) NSTEMI (non-ST elevated myocardial infarction) Status: Acute Current Visit: Yes (3) Diabetes Status: Chronic Current Visit: Yes Qualifiers: Diabetes mellitus type: type 2 Hospitalist: Subjective Interval history: Mrs. Callahan has less sputum production today. The patient does not complain of palpitations or angina. Exam - Constitutional Vitals: Period Temp Pulse Resp BP Sys/Ho Pulse Ox Last 24 Hr 96.5 F-98.2 F 50-60 16-22 114-180/57-74 90-99 Exam: Constitutional System: Mild distress. No tremulousness. Paroxysmal cough with [place] colored sputum Head: Normocephalic, atraumatic. Ears, Nose and Throat System: No evidence of Otitis or Mastoiditis. No epistaxis or discharge Eyes System: Pupils equal, round, and reactive. Extraocular muscles intact. Neck: Supple, without adenopathy, No jugular venous distention. No thyromegaly , neck mass, or prior surgery apparent. Respiratory System: Chest diffuse rhonchi worse on the right to auscultation. Cardiovascular System: Heart with regular rate and rhythm. No murmur. GI System: Abdomen soft, nontender. Normo active bowel sounds present. Results - Labs CBC & BMP: 07/30/17 04:11 07/30/17 04:11 Lab Results: I have reviewed the past 24 hour labs Specialty Discharge - Follow Up or Referrals Follow up with: Jennifer Maria DO [Physician] - 2 Weeks (Please schedule outpatient stress test in 2 weeks at [facility] clinic in 2 weeks. She will then need a follow-up appoint with Dr. Maria 1 week following stress test.)
[2017-07-31] MEDS: ALBUTEROL/IPRATROPIUM 3 ML NEB RESP TX SCH ×4 (00:11→19:59)
[2017-07-31 03:58] LABS: Basophils % 0.4 % (0.0-0.8); Eosinophils # 0.3 10*3/uL (0.0-0.87); Eosinophils % 5.8 % (0.00-10.9); Hematocrit 31.5 VOL% (35.7-47.0); Hemoglobin 10.6 GM/DL (12.0-16.0); Immature Granulocytes % 1.5 %; Immature Granulocytes Absolute 0.08 #; Lymphocytes # 1.4 10*3/uL (1.4-4.0); Lymphocytes % 24.6 % (21.3-54.2); Mean Corpuscular HGB Conc 33.7 GM/DL (32-36); Mean Corpuscular Hemoglobin 32 PG (27-34); Mean Corpuscular Volume 94.6 FL (87-102); Mean Platelet Volume 10.7 FL (9.6-12.0); Monocytes # 0.5 10*3/uL (0.11-0.8); Monocytes % 9.8 % (1.7-12.7); Neutrophils # 3.2 10*3/uL (1.4-7.4); Neutrophils % 57.9 % (38.7-73.9); Platelet Count 227 T/CUMM (130-400); Red Blood Count 3.33 MC/CUMM (3.8-5.5); Red Cell Distribution Width 12.4 % (9.3-17.3); White Blood Count 5.5 T/CUMM (4-12)
[2017-07-31 04:27] LABS: Calcium 8.8 MG/DL (8.5-10.1); Magnesium 2.4 MG/DL (1.8-2.4); Osmolality,Calculated 284.1 MOS/KG (273-304); Potassium 4.1 MMOL/L (3.5-5.1)
[2017-07-31] MEDS: INSULIN REGULAR 100 UNIT/ML SUBCUT SCH ×4 (08:25→21:07)
[2017-07-31] MEDS: CLOPIDOGREL 75 MG TABLET PO SCH (09:23)
[2017-07-31] MEDS: ATORVASTATIN 40 MG TABLET PO SCH (09:23)
[2017-07-31] MEDS: BENZONATATE 100 MG CAPSULE PO SCH ×2 (09:23→21:06)
[2017-07-31] MEDS: ASPIRIN EC 81 MG TABLET PO SCH (09:24)
[2017-07-31] MEDS: amLODIPine 5 MG TABLET PO SCH (09:24)
[2017-07-31] MEDS: ISOSORBIDE MONONITRATE 30 MG TABLET PO SCH (09:24)
[2017-07-31] MEDS: FUROSEMIDE 20 MG TABLET PO SCH (09:24)
[2017-07-31] MEDS: BENAZEPRIL 10 MG TABLET PO SCH ×2 (09:25→21:06)
[2017-07-31] MEDS: PANTOPRAZOLE 40 MG TABLET PO SCH (09:25)
[2017-07-31] MEDS: METOPROLOL TARTRATE 25 MG TABLET PO SCH ×2 (09:28→21:06)
[2017-07-31] MEDS: cefTRIAXone 1,000 MG in SODIUM CHLORIDE 0.9% 100 ML IV SCH (10:03)
[2017-07-31] MEDS: LEVOFLOXACIN INJ 500 MG in PREMIX 1 EACH IV SCH (13:53)
[2017-07-31] MEDS ORDERED: guaiFENesin/CODEINE 5 ML LIQUID PO PRN (14:41)
--- NOTE | 2017-07-31 14:42 | Hospitalist Progress Note ---
Assessment and Plan (1) Pneumonia Status: Acute Assessment and plan: The patient is admitted hospital for treatment of pneumonia. I am going to continue Levaquin and Rocephin medicine; anticipate discharge home tomorrow. I am going to help the cough symptoms with Robitussin-AC. Current Visit: Yes Qualifiers: Pneumonia type: due to Pneumococcus (2) NSTEMI (non-ST elevated myocardial infarction) Status: Acute Current Visit: Yes (3) Diabetes Status: Chronic Current Visit: Yes Qualifiers: Diabetes mellitus type: type 2 Hospitalist: Subjective Interval history: The patient continues treatment for pneumonia and is improving. She still has some residual cough but sputum production has mostly resolved. Exam - Constitutional Vitals: Period Temp Pulse Resp BP Sys/Ho Pulse Ox Last 24 Hr 96.1 F-98.1 F 50-65 15-22 114-153/56-75 94-99 Exam: Constitutional System: Mild distress. No tremulousness. Paroxysmal cough with white colored sputum Head: Normocephalic, atraumatic. Ears, Nose and Throat System: No evidence of Otitis or Mastoiditis. No epistaxis or discharge Eyes System: Pupils equal, round, and reactive. Extraocular muscles intact. Neck: Supple, without adenopathy, No jugular venous distention. No thyromegaly , neck mass, or prior surgery apparent. Respiratory System: Chest diffuse rhonchi worse on the right to auscultation. Cardiovascular System: Heart with regular rate and rhythm. No murmur. GI System: Abdomen soft, nontender. Normo active bowel sounds present. Results - Labs CBC & BMP: 07/31/17 03:43 07/31/17 03:43 Lab Results: I have reviewed the past 24 hour labs Specialty Discharge - Follow Up or Referrals Follow up with: Jennifer Maria DO [Physician] - 08/20/17 9:50 am (Please schedule outpatient stress test in 2 weeks at [facility] in 2 weeks. She will then need a follow- up appoint with Dr. Maria 1 week following stress test. -Aug 13, 8:15 for stress test)
[2017-08-01] MEDS: ALBUTEROL/IPRATROPIUM 3 ML NEB RESP TX SCH ×2 (00:17→07:06)
[2017-08-01 05:58] LABS: Basophils % 0.4 % (0.0-0.8); Eosinophils # 0.3 10*3/uL (0.0-0.87); Eosinophils % 6.5 % (0.00-10.9); Hematocrit 30.6 VOL% (35.7-47.0); Hemoglobin 10.3 GM/DL (12.0-16.0); Immature Granulocytes Absolute 0.05 #; Lymphocytes # 1.3 10*3/uL (1.4-4.0); Lymphocytes % 27.8 % (21.3-54.2); Mean Corpuscular HGB Conc 33.7 GM/DL (32-36); Mean Corpuscular Hemoglobin 32 PG (27-34); Mean Platelet Volume 10.6 FL (9.6-12.0); Monocytes # 0.6 10*3/uL (0.11-0.8); Monocytes % 12.8 % (1.7-12.7); Neutrophils # 2.5 10*3/uL (1.4-7.4); Neutrophils % 51.5 % (38.7-73.9); Platelet Count 222 T/CUMM (130-400); Red Blood Count 3.22 MC/CUMM (3.8-5.5); Red Cell Distribution Width 12.3 % (9.3-17.3); White Blood Count 4.8 T/CUMM (4-12)
[2017-08-01 06:56] LABS: Magnesium 2.3 MG/DL (1.8-2.4); Potassium 3.9 MMOL/L (3.5-5.1)
[2017-08-01] MEDS: INSULIN REGULAR 100 UNIT/ML SUBCUT SCH ×2 (08:37→11:45)
[2017-08-01] MEDS: BENAZEPRIL 10 MG TABLET PO SCH (08:40)
[2017-08-01] MEDS: CLOPIDOGREL 75 MG TABLET PO SCH (08:40)
[2017-08-01] MEDS: PANTOPRAZOLE 40 MG TABLET PO SCH (08:40)
[2017-08-01] MEDS: amLODIPine 5 MG TABLET PO SCH (08:41)
[2017-08-01] MEDS: ATORVASTATIN 40 MG TABLET PO SCH (08:41)
[2017-08-01] MEDS: BENZONATATE 100 MG CAPSULE PO SCH (08:41)
[2017-08-01] MEDS: FUROSEMIDE 20 MG TABLET PO SCH (08:41)
[2017-08-01] MEDS: METOPROLOL TARTRATE 25 MG TABLET PO SCH (08:41)
[2017-08-01] MEDS: ASPIRIN EC 81 MG TABLET PO SCH (08:41)
[2017-08-01] MEDS: ISOSORBIDE MONONITRATE 30 MG TABLET PO SCH (08:41)
[2017-08-01] MEDS: cefTRIAXone 1,000 MG in SODIUM CHLORIDE 0.9% 100 ML IV SCH (09:10)
--- NOTE | 2017-08-01 09:22 | Discharge Summary ---
Hospital Course - Hospital Course Hospital Course: The patient was admitted hospital with chest heaviness, cough, fever, sputum production. The patient was diagnosed with pneumonia and underlying coronary disease causing mild angina. We had cardiology consultation. The packer dried beef felt that her angina was due to demand ischemia on account of pneumonia. From the time of admission the patient was treated for pneumonia. She had gradual improvement of shortness of breath, fever resolved, and sputum production improved. Cough was persistent and treated with codeine cough syrup. The patient is now reached maximum benefit and is ready for discharge home on oral antibiotic. She will follow-up at [facility]. On the date of discharge, there are a few rhonchi in the right lower lobe posteriorly. Heart has regular rate and rhythm, abdomen soft. Patient medications were reconciled upon admission, and again at the time of discharge. The patient was screened for tobacco use and found to be a occasional smoker. The patient was given 4 minutes of tobacco avoidance education. The patient's medical decsion maker is themself, and when asked, they asked to be Full code. Discharge Time was 35 minutes, including final examination, evaluation and planning, education, reconciliation of medications, writing prescriptions, coordinating care with counter caser, and preparing discharge documentation. Diagnosis - Discharge Diagnosis (1) Pneumonia Status: Resolved (2) NSTEMI (non-ST elevated myocardial infarction) Status: Resolved (3) Diabetes Status: Chronic Specialty Discharge - Follow Up or Referrals Follow up with: Jennifer Maria DO [Physician] - 08/20/17 9:50 am (Please schedule outpatient stress test in 2 weeks at [facility] clinic in 2 weeks. She will then need a follow- up appoint with Dr. Maria 1 week following stress test. -Aug 13, 8:15 for stress test) Discharge Plan - Discharge Data Disposition: Disch To Home/Self Care Condition at Discharge: Stable Discharge Diet: diabetic diet - Discharge Medications New guaiFENesin/CODEINE [Robitussin AC] 5 ml PO Q6H PRN #60 ml PRN Reason: Cough Cefuroxime Tab [Ceftin] 250 mg PO BID #14 tablet Metoprolol Tartrate Tab [Lopressor Tab] 12.5 mg PO BID #90 tablet Continue Clopidogrel [Plavix] 75 mg PO DAILY Isosorbide Mononitrate [Isosorbide Mononitrate ER] 30 mg PO DAILY Furosemide 20 mg PO DAILY Benazepril HCl 20 mg PO BID Atorvastatin Calcium 40 mg PO DAILY Amlodipine Besylate 5 mg PO DAILY Ergocalciferol [Drisdol] 50,000 units PO Q7D Nitroglycerin Sl Tab [Nitrostat] 0.4 mg SL Q5M PRN #100 tablet PRN Reason: Chest Pain Aspirin EC Tab 81 mg PO DAILY #30 tablet - Follow Up or Referral Follow Up: Jennifer Maria DO [Physician] - 08/20/17 9:50 am (Please schedule outpatient stress test in 2 weeks at [facility] in 2 weeks. She will then need a follow- up appoint with Dr. Maria 1 week following stress test. -Aug 13, 8:15 for stress test) - Forms/Instructions Instructions: Myocardial Infarction (GEN), Left Heart Catheterization (DC), Heart Healthy Diet (GEN), Coronary Intravascular Stent Placement (DC) Exam - Constitutional Vitals: Period Temp Pulse Resp BP Sys/Ho Pulse Ox Last 24 Hr 96.1 F-98.4 F 49-77 16-24 98-159/54-74 94-99 Discharge Results Procedures and tests throughout hospitalization: Pending Orders 07/28/17 09:02 Occult Blood, Stool Routine 08/02/17 04:00 BMP w/ Mg [Basic Metabolic Panel w/Mg] IN AM CBC [Comp Blood Count Auto Diff] IN AM Labs on day of discharge: Labs from last 24 hours 08/01/17 08/01/17 08/01/17 07:31 05:47 05:47 WBC 4.8 RBC 3.22 L Hgb 10.3 L Hct 30.6 L MCV 95.0 MCH 32 MCHC 33.7 RDW 12.3 Plt Count 222 MPV 10.6 Neut % (Auto) 51.5 Lymph % (Auto) 27.8 [place] % (Auto) 12.8 H Eos % (Auto) 6.5 Baso % (Auto) 0.4 Neut # (Auto) 2.5 Lymph # (Auto) 1.3 L [place] # (Auto) 0.6 Eos # (Auto) 0.3 Baso # (Auto) 0.0 Immature Gran % 1.0 Nucleated RBC % 0.0 Immature Gran # 0.05 Nucleated RBCs # 0.00 Immature Plt Fraction 0.0 Sodium 143 Potassium 3.9 Chloride 108 H Carbon Dioxide 25 Anion Gap 13.9 BUN 15 Creatinine 1.00 GFR Calculation 60 BUN/Creatinine Ratio 15.00 Glucose 104 POC Glucose 113 H Calculated Osmolality 285.0 Calcium 9.0 Magnesium 2.3 07/31/17 07/31/17 07/31/17 20:09 15:59 10:43 WBC RBC Hgb Hct MCV MCH MCHC RDW Plt Count MPV Neut % (Auto) Lymph % (Auto) [place] % (Auto) Eos % (Auto) Baso % (Auto) Neut # (Auto) Lymph # (Auto) [place] # (Auto) Eos # (Auto) Baso # (Auto) Immature Gran % Nucleated RBC % Immature Gran # Nucleated RBCs # Immature Plt Fraction Sodium Potassium Chloride Carbon Dioxide Anion Gap BUN Creatinine GFR Calculation BUN/Creatinine Ratio Glucose POC Glucose 123 H 116 H 225 H Calculated Osmolality Calcium Magnesium DS: Provider Date of admission: 07/25/17 18:10 Primary care physician: Ratna Reynolds MD Attending physician on admission: Marian Padron MD Consults: 07/26/17 06:31 Consult to Cardiac Rehabilitation [CONS] Routine Reason for Cardiac Rehabilitation: Other Consult Comment: NSTEMI Report Discharging clinician: Alton Gan MD
[2017-08-01 11:53] VITALS: BP 124/67
== END 2017-08-01 12:10 | disposition home or self-care (01) | DRG 280 ==
LOC: N.TELEN 18:10 → SUATTDRO 18:10
PROVIDERS: ADMIT Internal Medicine; ATTEND Internal Medicine

== ENCOUNTER 2017-09-18 20:20 | Inpatient (IN) ==
[2017-09-18] MEDS ORDERED: ONDANSETRON 4 MG/2 ML VIAL IV PRN (23:35)
[2017-09-18] MEDS ORDERED: ACETAMINOPHEN 325 MG TABLET PO PRN (23:35)
[2017-09-19 02:27] LABS: Basophils % 0.6 % (0.0-0.8); Eosinophils # 0.3 10*3/uL (0.0-0.87); Hematocrit 36.1 VOL% (35.7-47.0); Hemoglobin 12.4 GM/DL (12.0-16.0); Immature Granulocytes % 0.2 %; Immature Granulocytes Absolute 0.01 #; Lymphocytes # 1.7 10*3/uL (1.4-4.0); Lymphocytes % 33.1 % (21.3-54.2); Mean Corpuscular HGB Conc 34.3 GM/DL (32-36); Mean Corpuscular Hemoglobin 32 PG (27-34); Mean Corpuscular Volume 93.5 FL (87-102); Mean Platelet Volume 11.6 FL (9.6-12.0); Monocytes # 0.6 10*3/uL (0.11-0.8); Monocytes % 11.2 % (1.7-12.7); Neutrophils # 2.5 10*3/uL (1.4-7.4); Neutrophils % 49.9 % (38.7-73.9); Platelet Count 153 T/CUMM (130-400); Red Blood Count 3.86 MC/CUMM (3.8-5.5); Red Cell Distribution Width 12.1 % (9.3-17.3)
[2017-09-19] MEDS: ALBUTEROL/IPRATROPIUM 3 ML NEB RESP TX SCH ×5 (02:48→20:26)
[2017-09-19 02:57] LABS: Albumin 3.4 G/DL (3.4-5.0); Bilirubin,Total 0.6 MG/DL (0.2-1.0); Calcium 8.7 MG/DL (8.5-10.1); Magnesium 1.9 MG/DL (1.8-2.4); Osmolality,Calculated 293.6 MOS/KG (273-304); Potassium 3.9 MMOL/L (3.5-5.1); Total Protein 6.5 G/DL (6.4-8.3)
[2017-09-19] MEDS: ENOXAPARIN 40 MG/0.4 ML SYRINGE SUBCUT SCH (08:45)
[2017-09-19] MEDS ORDERED: PANTOPRAZOLE 40 MG TABLET PO SCH (09:00)
[2017-09-19 11:12] LABS: Lymphocytes,Pleural Fluid 92 %; Monocytes,Pleural Fluid 5 %; Neutrophils,Pleural Fluid 3 %; RBC,Pleural Fluid 4446 T/CUMM
[2017-09-19] MEDS: cefTRIAXone 1,000 MG in SYRINGE 1 EACH IV SCH (11:50)
[2017-09-19] MEDS ORDERED: ERGOCALCIFEROL 50,000 UNIT CAPSULE PO SCH (14:00)
[2017-09-19] MEDS ORDERED: FLUTICASONE 50 MCG NASAL SPRAY 16 GM BOTTLE BOTH NARES PRN (14:00)
[2017-09-19] MEDS ORDERED: NITROGLYCERIN SL 0.4 MG TABLET SL PRN (14:00)
[2017-09-19] MEDS ORDERED: ALBUTEROL 2.5 MG/3 ML NEB RESP TX PRN (19:00)
[2017-09-19] MEDS: PANTOPRAZOLE 40 MG TABLET PO SCH (22:15)
[2017-09-19] MEDS: METOPROLOL TARTRATE 25 MG TABLET PO SCH (22:15)
[2017-09-19] MEDS: ATORVASTATIN 40 MG TABLET PO SCH (22:15)
[2017-09-19] MEDS: BENAZEPRIL 40 MG TABLET PO SCH (22:16)
[2017-09-20] MEDS: ALBUTEROL/IPRATROPIUM 3 ML NEB RESP TX SCH ×7 (00:05→23:09)
[2017-09-20] MEDS: CETIRIZINE 10 MG TABLET PO SCH (09:37)
[2017-09-20] MEDS: PANTOPRAZOLE 40 MG TABLET PO SCH ×2 (09:37→20:36)
[2017-09-20] MEDS: amLODIPine 5 MG TABLET PO SCH (09:37)
[2017-09-20] MEDS: CLOPIDOGREL 75 MG TABLET PO SCH (09:37)
[2017-09-20] MEDS: ISOSORBIDE MONONITRATE 30 MG TABLET PO SCH (09:37)
[2017-09-20] MEDS: METOPROLOL TARTRATE 25 MG TABLET PO SCH ×2 (09:38→20:35)
[2017-09-20] MEDS: FUROSEMIDE 20 MG TABLET PO SCH (09:38)
[2017-09-20] MEDS: ASPIRIN EC 81 MG TABLET PO SCH (09:38)
[2017-09-20] MEDS: ENOXAPARIN 40 MG/0.4 ML SYRINGE SUBCUT SCH (09:38)
[2017-09-20] MEDS: cefTRIAXone 1,000 MG in SYRINGE 1 EACH IV SCH (09:39)
[2017-09-20] MEDS: BENAZEPRIL 40 MG TABLET PO SCH ×2 (09:39→20:36)
[2017-09-20] MEDS ORDERED: TUBERCULIN SKIN TEST 0.1 ML SYRINGE INTRADERM ONE (10:00)
[2017-09-20] MEDS: ATORVASTATIN 40 MG TABLET PO SCH (20:35)
[2017-09-21] MEDS: ALBUTEROL/IPRATROPIUM 3 ML NEB RESP TX SCH ×5 (03:25→19:14)
[2017-09-21 06:32] LABS: Basophils % 0.7 % (0.0-0.8); Eosinophils # 0.5 10*3/uL (0.0-0.87); Eosinophils % 11.2 % (0.00-10.9); Hematocrit 31.1 VOL% (35.7-47.0); Hemoglobin 10.4 GM/DL (12.0-16.0); Immature Granulocytes % 0.2 %; Immature Granulocytes Absolute 0.01 #; Lymphocytes % 20.9 % (21.3-54.2); Mean Corpuscular HGB Conc 33.4 GM/DL (32-36); Mean Corpuscular Hemoglobin 32 PG (27-34); Mean Corpuscular Volume 94.5 FL (87-102); Mean Platelet Volume 11.5 FL (9.6-12.0); Monocytes # 0.6 10*3/uL (0.11-0.8); Monocytes % 13.2 % (1.7-12.7); Neutrophils # 2.5 10*3/uL (1.4-7.4); Neutrophils % 53.8 % (38.7-73.9); Platelet Count 127 T/CUMM (130-400); Red Blood Count 3.29 MC/CUMM (3.8-5.5); Red Cell Distribution Width 12.1 % (9.3-17.3); White Blood Count 4.6 T/CUMM (4-12)
[2017-09-21 06:54] LABS: Calcium 8.5 MG/DL (8.5-10.1); Potassium 3.8 MMOL/L (3.5-5.1)
[2017-09-21 07:09] LABS: Eosinophils 9 % (0-10); Hypochromasia 1+; Lymphocytes 21 % (20-55); Segmented Neutrophils 59 % (50-85); Total Cells Counted 100
[2017-09-21 07:10] LABS: Microcytosis Slight; Ovalocytes Slight; Platelet Estimate Adequate
[2017-09-21] MEDS: ENOXAPARIN 40 MG/0.4 ML SYRINGE SUBCUT SCH (09:00)
[2017-09-21] MEDS: cefTRIAXone 1,000 MG in SYRINGE 1 EACH IV SCH (09:01)
[2017-09-21] MEDS: FUROSEMIDE 20 MG TABLET PO SCH (09:01)
[2017-09-21] MEDS: amLODIPine 5 MG TABLET PO SCH (09:01)
[2017-09-21] MEDS: CETIRIZINE 10 MG TABLET PO SCH (09:02)
[2017-09-21] MEDS: CLOPIDOGREL 75 MG TABLET PO SCH (09:02)
[2017-09-21] MEDS: PANTOPRAZOLE 40 MG TABLET PO SCH ×2 (09:02→20:13)
[2017-09-21] MEDS: ISOSORBIDE MONONITRATE 30 MG TABLET PO SCH (09:02)
[2017-09-21] MEDS: ASPIRIN EC 81 MG TABLET PO SCH (09:06)
[2017-09-21] MEDS: METOPROLOL TARTRATE 25 MG TABLET PO SCH ×2 (09:06→20:13)
[2017-09-21] MEDS: BENAZEPRIL 40 MG TABLET PO SCH ×2 (09:06→20:13)
[2017-09-21] MEDS: ATORVASTATIN 40 MG TABLET PO SCH (20:13)
[2017-09-22] MEDS: ALBUTEROL/IPRATROPIUM 3 ML NEB RESP TX SCH ×7 (00:07→22:28)
[2017-09-22] MEDS: PANTOPRAZOLE 40 MG TABLET PO SCH ×2 (08:30→20:31)
[2017-09-22] MEDS: CETIRIZINE 10 MG TABLET PO SCH (08:30)
[2017-09-22] MEDS: ISOSORBIDE MONONITRATE 30 MG TABLET PO SCH (08:30)
[2017-09-22] MEDS: amLODIPine 5 MG TABLET PO SCH (08:30)
[2017-09-22] MEDS: FUROSEMIDE 20 MG TABLET PO SCH (08:30)
[2017-09-22] MEDS: CLOPIDOGREL 75 MG TABLET PO SCH (08:30)
[2017-09-22] MEDS: ASPIRIN EC 81 MG TABLET PO SCH (08:31)
[2017-09-22] MEDS: METOPROLOL TARTRATE 25 MG TABLET PO SCH ×2 (08:31→20:31)
[2017-09-22] MEDS: BENAZEPRIL 40 MG TABLET PO SCH ×2 (08:31→20:31)
[2017-09-22] MEDS: ENOXAPARIN 40 MG/0.4 ML SYRINGE SUBCUT SCH (08:32)
[2017-09-22] MEDS: cefTRIAXone 1,000 MG in SYRINGE 1 EACH IV SCH (09:00)
[2017-09-22] MEDS: ATORVASTATIN 40 MG TABLET PO SCH (20:31)
[2017-09-23] MEDS: ALBUTEROL/IPRATROPIUM 3 ML NEB RESP TX SCH ×6 (02:25→23:45)
[2017-09-23] MEDS: ISOSORBIDE MONONITRATE 30 MG TABLET PO SCH (10:11)
[2017-09-23] MEDS: CETIRIZINE 10 MG TABLET PO SCH (10:11)
[2017-09-23] MEDS: ASPIRIN EC 81 MG TABLET PO SCH (10:11)
[2017-09-23] MEDS: FUROSEMIDE 20 MG TABLET PO SCH (10:11)
[2017-09-23] MEDS: PANTOPRAZOLE 40 MG TABLET PO SCH ×2 (10:11→20:45)
[2017-09-23] MEDS: BENAZEPRIL 40 MG TABLET PO SCH ×2 (10:12→20:45)
[2017-09-23] MEDS: amLODIPine 5 MG TABLET PO SCH (10:12)
[2017-09-23] MEDS: METOPROLOL TARTRATE 25 MG TABLET PO SCH ×2 (10:12→20:44)
[2017-09-23] MEDS: CLOPIDOGREL 75 MG TABLET PO SCH (10:12)
[2017-09-23] MEDS: ENOXAPARIN 40 MG/0.4 ML SYRINGE SUBCUT SCH (10:20)
[2017-09-23] MEDS: cefTRIAXone 1,000 MG in SYRINGE 1 EACH IV SCH (10:59)
[2017-09-23 14:15] LABS: Cancer Antigen 19-9 4.8 U/ML (0-37); Carcinoembryonic Antigen 0.7 NG/ML (0.0-5.0)
[2017-09-23] MEDS: ATORVASTATIN 40 MG TABLET PO SCH (20:44)
[2017-09-24] MEDS: ALBUTEROL/IPRATROPIUM 3 ML NEB RESP TX SCH ×3 (03:00→11:30)
[2017-09-24] MEDS: ENOXAPARIN 40 MG/0.4 ML SYRINGE SUBCUT SCH (08:48)
[2017-09-24] MEDS: PANTOPRAZOLE 40 MG TABLET PO SCH (08:48)
[2017-09-24] MEDS: CLOPIDOGREL 75 MG TABLET PO SCH (08:49)
[2017-09-24] MEDS: amLODIPine 5 MG TABLET PO SCH (08:49)
[2017-09-24] MEDS: ASPIRIN EC 81 MG TABLET PO SCH (08:49)
[2017-09-24] MEDS: BENAZEPRIL 40 MG TABLET PO SCH (08:49)
[2017-09-24] MEDS: METOPROLOL TARTRATE 25 MG TABLET PO SCH (08:49)
[2017-09-24] MEDS: CETIRIZINE 10 MG TABLET PO SCH (08:49)
[2017-09-24] MEDS: FUROSEMIDE 20 MG TABLET PO SCH (08:49)
[2017-09-24] MEDS: ISOSORBIDE MONONITRATE 30 MG TABLET PO SCH (08:49)
[2017-09-24] MEDS: cefTRIAXone 1,000 MG in SYRINGE 1 EACH IV SCH (09:15)
[2017-09-24] MEDS ORDERED: BISACODYL 5 MG TABLET PO ONE (10:16)
[2017-09-24 11:16] VITALS: BP 114/61
[2017-09-24 18:21] LABS: TB Ag minue Nil Result 0.28 IU/mL
== END 2017-09-24 13:20 | disposition home or self-care (01) | DRG 844 ==
LOC: N.5E 21:37 → SUATTDRO 21:37
PROVIDERS: ADMIT Family Medicine; ATTEND Internal Medicine

== ENCOUNTER 2017-12-10 05:49 | Inpatient (IN) ==
[2017-12-09 16:08] LABS: Apearance,Urine Slightly Hazy (Clear); Bilirubin,Urine Negative (Negative); Blood, Urine Negative (Negative); Glucose,Urine (UA) Negative (Negative); Ketones,Urine Negative (Negative); Mucus,Urine Few /LPF (Occasional); Nitrite,Urine Negative (Negative); Protein,Urine 30 MG/DL; RBC,Urine 1 /HPF (0-4); Squamous Epithelial Cell,Urine Occasional /HPF (0-10); Urine Color Yellow (Yellow); Urine Specific Gravity 1.018 (1.001-1.035); Urine Urobilinogen < 2.0 EU/DL (0.2-1.0); WBC,Urine 2 /HPF (0-6)
[2017-12-09 16:19] LABS: PT Patient Result 10.4 SECS; Partial Thromboplastin Time 27.1 SECS (0-40)
[2017-12-10] MEDS ORDERED: DIAZEPAM 5 MG TABLET PO ONE (06:00)
[2017-12-10] MEDS ORDERED: FAMOTIDINE 20 MG TABLET PO ONE (06:00)
[2017-12-10] MEDS ORDERED: ALBUTEROL 2.5 MG/3 ML NEB RESP TX ONE (06:00)
[2017-12-10] MEDS ORDERED: IPRATROPIUM 500 MCG/2.5 ML NEB RESP TX ONE (06:00)
[2017-12-10] MEDS ORDERED: CEFUROXIME 1,500 MG VIAL ONE (06:05)
[2017-12-10] MEDS ORDERED: FAMOTIDINE 20 MG TABLET ONE (06:06)
[2017-12-10] MEDS ORDERED: DIAZEPAM 5 MG TABLET ONE (06:06)
[2017-12-10] MEDS ORDERED: TALC INTRAPLEURAL POWDER 5 GM BOTTLE INTRAPLEUR ONE (06:26)
[2017-12-10] MEDS ORDERED: BUPIVACAINE LIPOSOMAL 20 ML/266 MG VIAL ONE (06:26)
[2017-12-10] MEDS ORDERED: CEFUROXIME INJ 1,500 MG in SODIUM CHLORIDE 0.9% 50 ML IV ONE (06:30)
[2017-12-10] MEDS ORDERED: BUPIVACAINE LIPOSOMAL 20 ML/266 MG VIAL INFILTRAT ONE (06:30)
[2017-12-10] MEDS ORDERED: NITROGLYCERIN DRIP 50 MG/250 ML BOTTLE IV ONE (06:41)
[2017-12-10] MEDS ORDERED: HEPARIN/NACL 0.9% 2 UNITS/ML 500 ML IV ONE (06:41)
[2017-12-10] MEDS: LACTATED RINGERS 1,000 ML IV SCH ×2 (06:52→12:21)
[2017-12-10] MEDS ORDERED: SUGAMMADEX 200 MG/2 ML VIAL IV ONE (09:14)
[2017-12-10 09:30] LABS: ABG HCO3 24.4 MMOL/L (20-26); ABG Oxygen Saturation 98.2 % (95-100); ABG PCO2 35.7 MM HG (35-48); ABG PH 7.433 (7.35-7.45); ABG TCO2 21.5 MMOL/L (23-27); Glucose Heart Surgery 167 MG/DL (74-106); Hematocrit Heart Surgery 32.8 PERCENT (37-47); Hemoglobin Heart Surgery 10.6 G/DL (12.0-16.0); Potassium Heart/CVR 3.3 MMOL/L (3.5-5.1)
[2017-12-10] MEDS ORDERED: TISSUE ADHESIVE 1 EACH APPLICATOR TOP ONE (09:37)
[2017-12-10] MEDS ORDERED: ONDANSETRON 4 MG/2 ML VIAL IV PRN ×2 (09:55→10:47)
[2017-12-10 10:17] LABS: Apearance,Urine CLOUDY (Clear); Bilirubin,Urine Negative (Negative); Blood, Urine Negative (Negative); Glucose,Urine (UA) Negative (Negative); Hyaline Casts,Urine 27 /LPF (0-3); Ketones,Urine Negative (Negative); Mucus,Urine Many /LPF (Occasional); Nitrite,Urine Negative (Negative); Protein,Urine 30 MG/DL; RBC,Urine 2 /HPF (0-4); Squamous Epithelial Cell,Urine Occasional /HPF (0-10); Urine Color Amber (Yellow); WBC,Urine 5 /HPF (0-6)
[2017-12-10] MEDS ORDERED: ONDANSETRON 4 MG/2 ML VIAL ONE ×2 (10:32→10:34)
[2017-12-10] MEDS ORDERED: HYDROmorphone 2 MG/1 ML VIAL ONE (10:32)
[2017-12-10] MEDS ORDERED: MIDAZOLAM 2 MG/2 ML VIAL ONE (10:34)
[2017-12-10] MEDS ORDERED: SEVOFLURANE 1 UNIT/15 MINUTE INH ONE (10:34)
[2017-12-10] MEDS ORDERED: ACETAMINOPHEN 1,000 MG/100 ML VIAL IV ONE (10:34)
[2017-12-10] MEDS ORDERED: DEXAMETHASONE 10 MG/1 ML VIAL ONE (10:34)
[2017-12-10] MEDS ORDERED: PROPOFOL 200 MG/20 ML VIAL IV ONE (10:34)
[2017-12-10] MEDS ORDERED: fentaNYL 100 MCG/2 ML VIAL ONE (10:34)
[2017-12-10] MEDS ORDERED: LACTATED RINGERS 1,000 ML IV ONE (10:35)
[2017-12-10] MEDS ORDERED: ROCURONIUM 100 MG/10 ML VIAL IV ONE (10:35)
[2017-12-10] MEDS ORDERED: SUCCINYLCHOLINE 200 MG/10 ML VIAL ONE (10:35)
[2017-12-10] MEDS: HYDROmorphone 2 MG/1 ML VIAL IV PRN ×3 (10:40→11:15)
[2017-12-10 11:03] LABS: Basophils % 0.3 % (0.0-0.8); Eosinophils # 0.1 10*3/uL (0.0-0.87); Hematocrit 33.1 VOL% (35.7-47.0); Hemoglobin 11.2 GM/DL (12.0-16.0); Immature Granulocytes % 0.5 %; Immature Granulocytes Absolute 0.04 #; Lymphocytes # 1.1 10*3/uL (1.4-4.0); Lymphocytes % 13.8 % (21.3-54.2); Mean Corpuscular HGB Conc 33.8 GM/DL (32-36); Mean Corpuscular Hemoglobin 30 PG (27-34); Mean Corpuscular Volume 89.7 FL (87-102); Mean Platelet Volume 11.1 FL (9.6-12.0); Monocytes # 0.3 10*3/uL (0.11-0.8); Neutrophils # 6.2 10*3/uL (1.4-7.4); Neutrophils % 80.4 % (38.7-73.9); Platelet Count 174 T/CUMM (130-400); Red Blood Count 3.69 MC/CUMM (3.8-5.5); Red Cell Distribution Width 13.1 % (9.3-17.3); White Blood Count 7.7 T/CUMM (4-12)
[2017-12-10 11:32] LABS: Calcium 8.2 MG/DL (8.5-10.1); Osmolality,Calculated 281.4 MOS/KG (273-304); Potassium 3.4 MMOL/L (3.5-5.1)
[2017-12-10] MEDS: POTASSIUM CHLORIDE INJ 10 MEQ in SODIUM CHLORIDE 0.45% 1,000 ML IV SCH ×2 (17:13→17:41)
[2017-12-10] MEDS: KETOROLAC 15 MG/1 ML VIAL IV SCH ×3 (17:14→22:20)
[2017-12-10] MEDS: CEFUROXIME INJ 1,500 MG in SYRINGE 1 EACH IV SCH (18:02)
[2017-12-10] MEDS: GABAPENTIN 100 MG CAPSULE PO SCH ×2 (18:07→22:20)
[2017-12-10] MEDS: ACETAMINOPHEN INJ 1,000 MG in PREMIX 1 EACH IV SCH (18:48)
[2017-12-11] MEDS: ACETAMINOPHEN INJ 1,000 MG in PREMIX 1 EACH IV SCH (01:00)
[2017-12-11] MEDS: POTASSIUM CHLORIDE INJ 10 MEQ in SODIUM CHLORIDE 0.45% 1,000 ML IV SCH ×2 (03:42→10:41)
[2017-12-11] MEDS: KETOROLAC 15 MG/1 ML VIAL IV SCH ×4 (03:55→21:00)
[2017-12-11] MEDS: ACETAMINOPHEN 500 MG TABLET PO SCH ×4 (03:55→20:56)
[2017-12-11 04:38] LABS: Basophils % 0.1 % (0.0-0.8); Hematocrit 35.2 VOL% (35.7-47.0); Hemoglobin 11.3 GM/DL (12.0-16.0); Immature Granulocytes % 0.4 %; Immature Granulocytes Absolute 0.04 #; Lymphocytes # 1.4 10*3/uL (1.4-4.0); Lymphocytes % 14.8 % (21.3-54.2); Mean Corpuscular HGB Conc 32.1 GM/DL (32-36); Mean Corpuscular Hemoglobin 29 PG (27-34); Mean Corpuscular Volume 91.7 FL (87-102); Mean Platelet Volume 11.9 FL (9.6-12.0); Monocytes # 0.6 10*3/uL (0.11-0.8); Neutrophils # 7.2 10*3/uL (1.4-7.4); Neutrophils % 78.7 % (38.7-73.9); Platelet Count 173 T/CUMM (130-400); Red Blood Count 3.84 MC/CUMM (3.8-5.5); White Blood Count 9.1 T/CUMM (4-12)
[2017-12-11 04:55] LABS: Calcium 8.2 MG/DL (8.5-10.1); Osmolality,Calculated 276.8 MOS/KG (273-304); Potassium 4.3 MMOL/L (3.5-5.1)
[2017-12-11] MEDS: CEFUROXIME INJ 1,500 MG in SYRINGE 1 EACH IV SCH (06:20)
[2017-12-11] MEDS: LACTATED RINGERS 1,000 ML IV SCH (07:03)
[2017-12-11] MEDS: GABAPENTIN 100 MG CAPSULE PO SCH ×3 (09:09→20:47)
[2017-12-11] MEDS: PANTOPRAZOLE 40 MG VIAL IV SCH (09:10)
[2017-12-11] MEDS ORDERED: ERGOCALCIFEROL 50,000 UNIT CAPSULE PO SCH (15:40)
[2017-12-11] MEDS ORDERED: FLUTICASONE 50 MCG NASAL SPRAY 16 GM BOTTLE BOTH NARES PRN (15:40)
[2017-12-11] MEDS ORDERED: ALBUTEROL 2.5 MG/3 ML NEB RESP TX PRN (15:40)
[2017-12-11] MEDS: BENAZEPRIL 40 MG TABLET PO SCH (20:47)
[2017-12-11] MEDS: ENOXAPARIN 40 MG/0.4 ML SYRINGE SUBCUT SCH (20:47)
[2017-12-11] MEDS: METOPROLOL TARTRATE 25 MG TABLET PO SCH (20:48)
[2017-12-11] MEDS: ATORVASTATIN 40 MG TABLET PO SCH (20:48)
[2017-12-12 05:13] LABS: Basophils % 0.1 % (0.0-0.8); Eosinophils # 0.1 10*3/uL (0.0-0.87); Hematocrit 33.7 VOL% (35.7-47.0); Hemoglobin 11.2 GM/DL (12.0-16.0); Immature Granulocytes % 0.7 %; Immature Granulocytes Absolute 0.05 #; Lymphocytes # 1.9 10*3/uL (1.4-4.0); Mean Corpuscular HGB Conc 33.2 GM/DL (32-36); Mean Corpuscular Hemoglobin 30 PG (27-34); Mean Corpuscular Volume 90.1 FL (87-102); Mean Platelet Volume 11.4 FL (9.6-12.0); Monocytes # 0.7 10*3/uL (0.11-0.8); Monocytes % 10.2 % (1.7-12.7); Neutrophils # 4.1 10*3/uL (1.4-7.4); Platelet Count 199 T/CUMM (130-400); Red Blood Count 3.74 MC/CUMM (3.8-5.5); Red Cell Distribution Width 13.5 % (9.3-17.3); White Blood Count 6.8 T/CUMM (4-12)
[2017-12-12 05:42] LABS: Eosinophils 3 % (0-10); Lymphocytes 22 % (20-55); Microcytosis Slight; Ovalocytes Slight; Segmented Neutrophils 67 % (50-85); Total Cells Counted 100
[2017-12-12 05:43] LABS: Hypochromasia Slight
[2017-12-12 05:47] LABS: Calcium 8.3 MG/DL (8.5-10.1); Osmolality,Calculated 281.3 MOS/KG (273-304); Potassium 3.8 MMOL/L (3.5-5.1)
[2017-12-12] MEDS: KETOROLAC 15 MG/1 ML VIAL IV SCH ×3 (05:49→13:15)
[2017-12-12] MEDS: ACETAMINOPHEN 500 MG TABLET PO SCH ×4 (05:50→21:00)
[2017-12-12] MEDS: ISOSORBIDE MONONITRATE 30 MG TABLET PO SCH (10:32)
[2017-12-12] MEDS: ASPIRIN EC 81 MG TABLET PO SCH (10:32)
[2017-12-12] MEDS: FUROSEMIDE 20 MG TABLET PO SCH (10:32)
[2017-12-12] MEDS: METOPROLOL TARTRATE 25 MG TABLET PO SCH ×2 (10:33→21:00)
[2017-12-12] MEDS: GABAPENTIN 100 MG CAPSULE PO SCH ×3 (10:34→21:00)
[2017-12-12] MEDS: BENAZEPRIL 40 MG TABLET PO SCH ×2 (10:34→21:00)
[2017-12-12] MEDS: amLODIPine 5 MG TABLET PO SCH (10:34)
[2017-12-12] MEDS: traMADol 50 MG TABLET PO PRN ×2 (10:35→18:06)
[2017-12-12] MEDS: PANTOPRAZOLE 40 MG VIAL IV SCH (10:42)
[2017-12-12] MEDS: ENOXAPARIN 40 MG/0.4 ML SYRINGE SUBCUT SCH (20:59)
[2017-12-12] MEDS: ATORVASTATIN 40 MG TABLET PO SCH (21:00)
[2017-12-12] MEDS: CELECOXIB 200 MG CAPSULE PO SCH (23:54)
[2017-12-13] MEDS: ACETAMINOPHEN 500 MG TABLET PO SCH ×4 (04:05→21:04)
[2017-12-13 05:15] LABS: Basophils % 0.3 % (0.0-0.8); Eosinophils # 0.2 10*3/uL (0.0-0.87); Eosinophils % 2.7 % (0.00-10.9); Hemoglobin 10.6 GM/DL (12.0-16.0); Immature Granulocytes % 0.5 %; Immature Granulocytes Absolute 0.04 #; Lymphocytes # 1.8 10*3/uL (1.4-4.0); Mean Corpuscular HGB Conc 32.1 GM/DL (32-36); Mean Corpuscular Hemoglobin 30 PG (27-34); Mean Corpuscular Volume 92.2 FL (87-102); Mean Platelet Volume 11.4 FL (9.6-12.0); Monocytes # 0.6 10*3/uL (0.11-0.8); Monocytes % 8.7 % (1.7-12.7); Neutrophils # 4.6 10*3/uL (1.4-7.4); Neutrophils % 62.8 % (38.7-73.9); Platelet Count 183 T/CUMM (130-400); Red Blood Count 3.58 MC/CUMM (3.8-5.5); Red Cell Distribution Width 13.6 % (9.3-17.3); White Blood Count 7.4 T/CUMM (4-12)
[2017-12-13 05:39] LABS: Calcium 8.1 MG/DL (8.5-10.1); Osmolality,Calculated 283.3 MOS/KG (273-304); Potassium 3.8 MMOL/L (3.5-5.1)
[2017-12-13 05:40] LABS: Calcium 8.2 MG/DL (8.5-10.1); Osmolality,Calculated 283.3 MOS/KG (273-304); Potassium 3.8 MMOL/L (3.5-5.1)
[2017-12-13 06:20] LABS: Band Neutrophils 1 % (0-10); Lymphocytes 31 % (20-55); Platelet Estimate Normal; Segmented Neutrophils 58 % (50-85); Total Cells Counted 100
[2017-12-13] MEDS: FUROSEMIDE 20 MG TABLET PO SCH (09:32)
[2017-12-13] MEDS: CELECOXIB 200 MG CAPSULE PO SCH ×2 (09:33→21:05)
[2017-12-13] MEDS: ISOSORBIDE MONONITRATE 30 MG TABLET PO SCH (09:33)
[2017-12-13] MEDS: amLODIPine 5 MG TABLET PO SCH (09:33)
[2017-12-13] MEDS: METOPROLOL TARTRATE 25 MG TABLET PO SCH ×2 (09:33→21:05)
[2017-12-13] MEDS: ASPIRIN EC 81 MG TABLET PO SCH (09:33)
[2017-12-13] MEDS: GABAPENTIN 100 MG CAPSULE PO SCH ×3 (09:33→21:05)
[2017-12-13] MEDS: BENAZEPRIL 40 MG TABLET PO SCH ×2 (09:33→21:04)
[2017-12-13] MEDS: PANTOPRAZOLE 40 MG VIAL IV SCH (09:33)
[2017-12-13] MEDS: ATORVASTATIN 40 MG TABLET PO SCH (21:04)
[2017-12-13] MEDS: ENOXAPARIN 40 MG/0.4 ML SYRINGE SUBCUT SCH (21:04)
[2017-12-14 02:21] LABS: Basophils % 0.5 % (0.0-0.8); Eosinophils # 0.4 10*3/uL (0.0-0.87); Eosinophils % 6.6 % (0.00-10.9); Hematocrit 32.8 VOL% (35.7-47.0); Hemoglobin 10.7 GM/DL (12.0-16.0); Immature Granulocytes % 0.9 %; Immature Granulocytes Absolute 0.06 #; Lymphocytes # 1.5 10*3/uL (1.4-4.0); Lymphocytes % 24.3 % (21.3-54.2); Mean Corpuscular HGB Conc 32.6 GM/DL (32-36); Mean Corpuscular Hemoglobin 30 PG (27-34); Mean Corpuscular Volume 90.9 FL (87-102); Mean Platelet Volume 11.9 FL (9.6-12.0); Monocytes # 0.5 10*3/uL (0.11-0.8); Monocytes % 7.7 % (1.7-12.7); Neutrophils # 3.8 10*3/uL (1.4-7.4); Platelet Count 189 T/CUMM (130-400); Red Blood Count 3.61 MC/CUMM (3.8-5.5); Red Cell Distribution Width 13.8 % (9.3-17.3); White Blood Count 6.4 T/CUMM (4-12)
[2017-12-14 03:10] LABS: Calcium 8.1 MG/DL (8.5-10.1); Magnesium 1.9 MG/DL (1.8-2.4); Potassium 3.7 MMOL/L (3.5-5.1)
[2017-12-14] MEDS: ACETAMINOPHEN 500 MG TABLET PO SCH ×4 (03:56→21:14)
[2017-12-14] MEDS: ISOSORBIDE MONONITRATE 30 MG TABLET PO SCH (08:31)
[2017-12-14] MEDS: BENAZEPRIL 40 MG TABLET PO SCH ×2 (08:31→21:10)
[2017-12-14] MEDS: GABAPENTIN 100 MG CAPSULE PO SCH ×3 (08:31→21:11)
[2017-12-14] MEDS: amLODIPine 5 MG TABLET PO SCH (08:31)
[2017-12-14] MEDS: CELECOXIB 200 MG CAPSULE PO SCH ×2 (08:31→21:11)
[2017-12-14] MEDS: FUROSEMIDE 20 MG TABLET PO SCH (08:32)
[2017-12-14] MEDS: ASPIRIN EC 81 MG TABLET PO SCH (08:32)
[2017-12-14] MEDS: METOPROLOL TARTRATE 25 MG TABLET PO SCH ×2 (08:32→21:10)
[2017-12-14] MEDS: PANTOPRAZOLE 40 MG VIAL IV SCH (08:33)
[2017-12-14] MEDS: traMADol 50 MG TABLET PO PRN (19:35)
[2017-12-14] MEDS: ENOXAPARIN 40 MG/0.4 ML SYRINGE SUBCUT SCH (21:10)
[2017-12-14] MEDS: ATORVASTATIN 40 MG TABLET PO SCH (21:11)
[2017-12-15] MEDS: ACETAMINOPHEN 500 MG TABLET PO SCH ×4 (04:56→21:35)
[2017-12-15 05:31] LABS: Basophils % 0.4 % (0.0-0.8); Eosinophils # 0.4 10*3/uL (0.0-0.87); Eosinophils % 5.7 % (0.00-10.9); Hematocrit 31.7 VOL% (35.7-47.0); Immature Granulocytes % 0.9 %; Immature Granulocytes Absolute 0.06 #; Lymphocytes % 28.6 % (21.3-54.2); Mean Corpuscular HGB Conc 31.5 GM/DL (32-36); Mean Corpuscular Hemoglobin 30 PG (27-34); Mean Corpuscular Volume 94.1 FL (87-102); Mean Platelet Volume 11.2 FL (9.6-12.0); Monocytes # 0.5 10*3/uL (0.11-0.8); Monocytes % 6.7 % (1.7-12.7); Neutrophils % 57.7 % (38.7-73.9); Platelet Count 191 T/CUMM (130-400); Red Blood Count 3.37 MC/CUMM (3.8-5.5); Red Cell Distribution Width 14.1 % (9.3-17.3); White Blood Count 6.9 T/CUMM (4-12)
[2017-12-15 06:00] LABS: Calcium 8.3 MG/DL (8.5-10.1); Magnesium 1.9 MG/DL (1.8-2.4); Osmolality,Calculated 294.6 MOS/KG (273-304)
[2017-12-15] MEDS: BENAZEPRIL 40 MG TABLET PO SCH ×2 (09:28→21:35)
[2017-12-15] MEDS: CELECOXIB 200 MG CAPSULE PO SCH ×2 (09:28→21:35)
[2017-12-15] MEDS: ASPIRIN EC 81 MG TABLET PO SCH (09:29)
[2017-12-15] MEDS: ISOSORBIDE MONONITRATE 30 MG TABLET PO SCH (09:29)
[2017-12-15] MEDS: amLODIPine 5 MG TABLET PO SCH (09:29)
[2017-12-15] MEDS: METOPROLOL TARTRATE 25 MG TABLET PO SCH ×2 (09:29→21:35)
[2017-12-15] MEDS: GABAPENTIN 100 MG CAPSULE PO SCH ×3 (09:29→21:35)
[2017-12-15] MEDS: PANTOPRAZOLE 40 MG VIAL IV SCH (09:29)
[2017-12-15] MEDS: FUROSEMIDE 20 MG TABLET PO SCH (09:29)
[2017-12-15] MEDS: ATORVASTATIN 40 MG TABLET PO SCH (21:35)
[2017-12-15] MEDS: ENOXAPARIN 40 MG/0.4 ML SYRINGE SUBCUT SCH (21:35)
[2017-12-16] MEDS: ACETAMINOPHEN 500 MG TABLET PO SCH ×4 (03:34→21:15)
[2017-12-16 05:10] LABS: Basophils % 0.1 % (0.0-0.8); Eosinophils # 0.2 10*3/uL (0.0-0.87); Eosinophils % 1.1 % (0.00-10.9); Hematocrit 33.5 VOL% (35.7-47.0); Hemoglobin 10.8 GM/DL (12.0-16.0); Immature Granulocytes % 0.8 %; Immature Granulocytes Absolute 0.12 #; Lymphocytes % 12.3 % (21.3-54.2); Mean Corpuscular HGB Conc 32.2 GM/DL (32-36); Mean Corpuscular Hemoglobin 30 PG (27-34); Mean Corpuscular Volume 92.5 FL (87-102); Mean Platelet Volume 11.5 FL (9.6-12.0); Monocytes # 0.6 10*3/uL (0.11-0.8); Neutrophils # 13.1 10*3/uL (1.4-7.4); Neutrophils % 81.7 % (38.7-73.9); Platelet Count 216 T/CUMM (130-400); Red Blood Count 3.62 MC/CUMM (3.8-5.5); Red Cell Distribution Width 14.5 % (9.3-17.3)
[2017-12-16 05:38] LABS: Calcium 8.4 MG/DL (8.5-10.1); Magnesium 1.6 MG/DL (1.8-2.4); Osmolality,Calculated 291.8 MOS/KG (273-304)
[2017-12-16] MEDS: ISOSORBIDE MONONITRATE 30 MG TABLET PO SCH (09:20)
[2017-12-16] MEDS: METOPROLOL TARTRATE 25 MG TABLET PO SCH ×2 (09:20→21:16)
[2017-12-16] MEDS: FUROSEMIDE 20 MG TABLET PO SCH (09:20)
[2017-12-16] MEDS: amLODIPine 5 MG TABLET PO SCH (09:21)
[2017-12-16] MEDS: CELECOXIB 200 MG CAPSULE PO SCH ×2 (09:21→21:15)
[2017-12-16] MEDS: BENAZEPRIL 40 MG TABLET PO SCH ×2 (09:21→21:16)
[2017-12-16] MEDS: GABAPENTIN 100 MG CAPSULE PO SCH ×3 (09:21→21:15)
[2017-12-16] MEDS: PANTOPRAZOLE 40 MG VIAL IV SCH (09:21)
[2017-12-16] MEDS: ASPIRIN EC 81 MG TABLET PO SCH (09:21)
[2017-12-16] MEDS: ATORVASTATIN 40 MG TABLET PO SCH (21:15)
[2017-12-16] MEDS: ENOXAPARIN 40 MG/0.4 ML SYRINGE SUBCUT SCH (21:16)
[2017-12-17] MEDS: ACETAMINOPHEN 500 MG TABLET PO SCH ×4 (05:13→21:50)
[2017-12-17 05:24] LABS: Hematocrit 32.1 VOL% (35.7-47.0); Hemoglobin 10.7 GM/DL (12.0-16.0); Mean Corpuscular HGB Conc 33.3 GM/DL (32-36); Mean Corpuscular Hemoglobin 30 PG (27-34); Mean Corpuscular Volume 90.9 FL (87-102); Mean Platelet Volume 11.8 FL (9.6-12.0); Platelet Count 208 T/CUMM (130-400); Red Blood Count 3.53 MC/CUMM (3.8-5.5); Red Cell Distribution Width 15.1 % (9.3-17.3)
[2017-12-17 05:25] LABS: Basophils % 0.1 % (0.0-0.8); Eosinophils # 0.3 10*3/uL (0.0-0.87); Immature Granulocytes % 1.9 %; Immature Granulocytes Absolute 0.26 #; Lymphocytes # 1.1 10*3/uL (1.4-4.0); Lymphocytes % 8.1 % (21.3-54.2); Monocytes # 0.6 10*3/uL (0.11-0.8); Monocytes % 4.1 % (1.7-12.7); Neutrophils # 11.8 10*3/uL (1.4-7.4); Neutrophils % 83.8 % (38.7-73.9)
[2017-12-17 05:49] LABS: Macrocytosis Slight; Platelet Estimate Normal
[2017-12-17 05:54] LABS: Calcium 8.5 MG/DL (8.5-10.1); Magnesium 1.7 MG/DL (1.8-2.4); Potassium 4.3 MMOL/L (3.5-5.1)
[2017-12-17] MEDS ORDERED: ERGOCALCIFEROL 50,000 UNIT CAPSULE PO SCH (09:00)
[2017-12-17] MEDS: FUROSEMIDE 20 MG TABLET PO SCH (09:53)
[2017-12-17] MEDS: CELECOXIB 200 MG CAPSULE PO SCH ×2 (09:53→21:50)
[2017-12-17] MEDS: ASPIRIN EC 81 MG TABLET PO SCH (09:53)
[2017-12-17] MEDS: ISOSORBIDE MONONITRATE 30 MG TABLET PO SCH (09:53)
[2017-12-17] MEDS: METOPROLOL TARTRATE 25 MG TABLET PO SCH ×2 (10:19→21:51)
[2017-12-17] MEDS: BENAZEPRIL 40 MG TABLET PO SCH ×2 (10:19→22:00)
[2017-12-17] MEDS: GABAPENTIN 100 MG CAPSULE PO SCH ×3 (10:19→21:50)
[2017-12-17] MEDS: amLODIPine 5 MG TABLET PO SCH (10:20)
[2017-12-17] MEDS: PANTOPRAZOLE 40 MG VIAL IV SCH (10:20)
[2017-12-17] MEDS ORDERED: LEVOFLOXACIN 750 MG TABLET PO SCH (12:00)
[2017-12-17] MEDS: CLOPIDOGREL 75 MG TABLET PO SCH (12:21)
[2017-12-17] MEDS: ATORVASTATIN 40 MG TABLET PO SCH (21:50)
[2017-12-17] MEDS: ENOXAPARIN 40 MG/0.4 ML SYRINGE SUBCUT SCH (21:51)
[2017-12-18] MEDS: traMADol 50 MG TABLET PO PRN (01:56)
[2017-12-18] MEDS: ACETAMINOPHEN 500 MG TABLET PO SCH ×2 (05:12→09:09)
[2017-12-18] MEDS ORDERED: MAGNESIUM SULF RIDER 50 ML IV ONE (08:26)
[2017-12-18] MEDS: FUROSEMIDE 20 MG TABLET PO SCH (08:43)
[2017-12-18] MEDS: CLOPIDOGREL 75 MG TABLET PO SCH (08:43)
[2017-12-18] MEDS: CELECOXIB 200 MG CAPSULE PO SCH (08:43)
[2017-12-18] MEDS: amLODIPine 5 MG TABLET PO SCH (08:44)
[2017-12-18] MEDS: ISOSORBIDE MONONITRATE 30 MG TABLET PO SCH (08:44)
[2017-12-18] MEDS: METOPROLOL TARTRATE 25 MG TABLET PO SCH (08:44)
[2017-12-18] MEDS: ASPIRIN EC 81 MG TABLET PO SCH (08:44)
[2017-12-18] MEDS: BENAZEPRIL 40 MG TABLET PO SCH (08:44)
[2017-12-18] MEDS: GABAPENTIN 100 MG CAPSULE PO SCH (08:44)
[2017-12-18] MEDS ORDERED: MAGNESIUM SULF RIDER 2 GM in PREMIX 1 EACH IV ONE (08:50)
[2017-12-18] MEDS ORDERED: PANTOPRAZOLE 40 MG TABLET PO SCH (09:00)
[2017-12-18] MEDS ORDERED: MAGNESIUM CHLORIDE 64 MG TABLET PO SCH (10:00)
[2017-12-18 12:05] VITALS: BP 97/52
[2017-12-18] MEDS ORDERED: LEVOFLOXACIN 750 MG TABLET PO SCH (12:30)
== END 2017-12-18 14:50 | disposition home health service (06) | DRG 982 ==
LOC: N.SDSINP 05:49 → N.ICU 16:48 → N.TELES 12-11 15:12
PROVIDERS: ADMIT Thoracic Surgery (Cardiothoracic Vascular Surgery); ATTEND Thoracic Surgery (Cardiothoracic Vascular Surgery)

== ENCOUNTER 2019-05-11 17:28 | Observation (INO) ==
[2019-05-11] MEDS ORDERED: LABETALOL 20 MG/4 ML SYRINGE IV PRN (18:48)
[2019-05-11] MEDS ORDERED: NITROGLYCERIN SL 0.4 MG TABLET SL PRN (19:00)
[2019-05-11] MEDS: METOPROLOL TARTRATE 25 MG TABLET PO SCH (21:19)
[2019-05-11] MEDS: ENOXAPARIN 40 MG/0.4 ML SYRINGE SUBCUT SCH (21:19)
[2019-05-11] MEDS: ATORVASTATIN 40 MG TABLET PO SCH (21:19)
[2019-05-12 05:09] LABS: Risk Ratio 2.63; VLDL CHOLESTEROL 25.8 MG/DL
[2019-05-12] MEDS ORDERED: ASPIRIN 325 MG TABLET PO SCH (09:00)
[2019-05-12] MEDS: CLOPIDOGREL 75 MG TABLET PO SCH (09:05)
[2019-05-12] MEDS: ISOSORBIDE MONONITRATE 30 MG TABLET PO SCH (09:05)
[2019-05-12] MEDS: FUROSEMIDE 20 MG TABLET PO SCH (09:05)
[2019-05-12] MEDS: amLODIPine 5 MG TABLET PO SCH (09:05)
[2019-05-12] MEDS: METOPROLOL TARTRATE 25 MG TABLET PO SCH ×2 (09:05→21:41)
[2019-05-12 12:01] LABS: Basophils % 0.7 % (0.0-0.8); Eosinophils # 0.1 10*3/uL (0.0-0.87); Eosinophils % 2.7 % (0.00-10.9); Hematocrit 36.3 VOL% (35.7-47.0); Hemoglobin 11.6 GM/DL (12.0-16.0); Immature Granulocytes % 0.2 %; Immature Granulocytes Absolute 0.01 #; Lymphocytes # 1.5 10*3/uL (1.4-4.0); Lymphocytes % 36.6 % (21.3-54.2); Mean Corpuscular Volume 100.8 FL (87-102); Mean Platelet Volume 10.6 FL (9.6-12.0); Monocytes % 13.3 % (1.7-12.7); Neutrophils % 46.5 % (38.7-73.9); Platelet Count 154 T/CUMM (130-400); Red Cell Distribution Width 12.3 % (9.3-17.3); White Blood Count 4.1 T/CUMM (4-12)
[2019-05-12 12:31] LABS: Albumin 3.2 G/DL (3.4-5.0); Osmolality,Calculated 282.4 MOS/KG (273-304); Total Protein 7.3 G/DL (6.4-8.3)
[2019-05-12] MEDS: PANTOPRAZOLE 40 MG TABLET PO SCH (12:59)
[2019-05-12] MEDS: ENOXAPARIN 40 MG/0.4 ML SYRINGE SUBCUT SCH (21:43)
[2019-05-12] MEDS: ATORVASTATIN 40 MG TABLET PO SCH (21:43)
[2019-05-13] MEDS: amLODIPine 5 MG TABLET PO SCH (09:10)
[2019-05-13] MEDS: CLOPIDOGREL 75 MG TABLET PO SCH (09:10)
[2019-05-13] MEDS: METOPROLOL TARTRATE 25 MG TABLET PO SCH (09:10)
[2019-05-13] MEDS: FUROSEMIDE 20 MG TABLET PO SCH (09:10)
[2019-05-13] MEDS: ISOSORBIDE MONONITRATE 30 MG TABLET PO SCH (09:11)
[2019-05-13] MEDS: PANTOPRAZOLE 40 MG TABLET PO SCH (09:11)
[2019-05-13] MEDS: ENOXAPARIN 40 MG/0.4 ML SYRINGE SUBCUT SCH (20:40)
[2019-05-13] MEDS: ATORVASTATIN 40 MG TABLET PO SCH (20:40)
[2019-05-14] MEDS: FUROSEMIDE 20 MG TABLET PO SCH (10:27)
[2019-05-14] MEDS: PANTOPRAZOLE 40 MG TABLET PO SCH (10:28)
[2019-05-14] MEDS: CLOPIDOGREL 75 MG TABLET PO SCH (10:28)
[2019-05-14] MEDS: ISOSORBIDE MONONITRATE 30 MG TABLET PO SCH (10:28)
[2019-05-14 12:01] VITALS: BP 129/72
== END 2019-05-14 14:00 | disposition home or self-care (01) ==
LOC: EDUNIT# → EDBD → N.EDINP 17:28 → N.ED 17:28 → N.4E 20:18
PROVIDERS: ADMIT Internal Medicine; ATTEND Internal Medicine

== ENCOUNTER 2019-09-22 19:48 | Inpatient (IN) ==
[2019-09-22] MEDS ORDERED: BISACODYL 5 MG TABLET PO PRN (23:48)
[2019-09-22] MEDS ORDERED: diphenhydrAMINE CAP 25 MG CAPSULE PO PRN (23:48)
[2019-09-22] MEDS ORDERED: guaiFENesin/DM ER 600-30 MG TABLET PO PRN (23:48)
[2019-09-22] MEDS ORDERED: ONDANSETRON 4 MG/2 ML VIAL IV PRN (23:48)
[2019-09-22] MEDS ORDERED: MORPHINE 4 MG/1 ML VIAL IV PRN (23:48)
[2019-09-22] MEDS ORDERED: NICOTINE 21 MG/24 HR PATCH TRANSDERM PRN (23:48)
[2019-09-22] MEDS ORDERED: ACETAMINOPHEN 325 MG TABLET PO PRN (23:48)
[2019-09-22] MEDS ORDERED: ZALEPLON 5 MG CAPSULE PO PRN (23:48)
[2019-09-23 00:22] LABS: Basophils % 0.5 % (0.0-0.8); Eosinophils # 0.1 10*3/uL (0.0-0.87); Eosinophils % 2.9 % (0.00-10.9); Hematocrit 39.9 VOL% (35.7-47.0); Hemoglobin 12.9 GM/DL (12.0-16.0); Immature Granulocytes % 0.2 %; Immature Granulocytes Absolute 0.01 #; Lymphocytes # 1.2 10*3/uL (1.4-4.0); Lymphocytes % 29.6 % (21.3-54.2); Mean Corpuscular HGB Conc 32.3 GM/DL (32-36); Mean Corpuscular Volume 99.3 FL (87-102); Mean Platelet Volume 10.9 FL (9.6-12.0); Monocytes % 10.5 % (1.7-12.7); Neutrophils % 56.3 % (38.7-73.9); Platelet Count 159 T/CUMM (130-400); Red Blood Count 4.02 MC/CUMM (3.8-5.5); Red Cell Distribution Width 12.4 % (9.3-17.3); White Blood Count 4.1 T/CUMM (4-12)
[2019-09-23 00:37] LABS: Albumin 3.6 G/DL (3.4-5.0); Bilirubin,Total 0.4 MG/DL (0.2-1.0); Calcium 9.2 MG/DL (8.5-10.1); Osmolality,Calculated 292.7 MOS/KG (273-304); Risk Ratio 3.23; VLDL CHOLESTEROL 21.4 MG/DL
[2019-09-23] MEDS: ALBUTEROL/IPRATROPIUM 3 ML NEB RESP TX SCH ×4 (01:33→19:10)
[2019-09-23] MEDS: FUROSEMIDE 40 MG/4 ML VIAL IV SCH ×2 (08:23→15:54)
[2019-09-23 08:38] LABS: INR 0.9; PT Patient Result 10.3 SECS (9.6-12.2)
[2019-09-23] MEDS ORDERED: NITROGLYCERIN SL 0.4 MG TABLET SL PRN (10:03)
[2019-09-23] MEDS: cefTRIAXone 1,000 MG in SYRINGE 1 EACH IV SCH (12:32)
[2019-09-23] MEDS: AZITHROMYCIN INJ 500 MG in SODIUM CHLORIDE 0.9% 250 ML IV SCH (12:35)
[2019-09-23] MEDS: ATORVASTATIN 40 MG TABLET PO SCH (21:22)
[2019-09-24] MEDS: ALBUTEROL/IPRATROPIUM 3 ML NEB RESP TX SCH ×4 (00:13→20:49)
[2019-09-24 05:34] LABS: Basophils % 0.5 % (0.0-0.8); Eosinophils # 0.2 10*3/uL (0.0-0.87); Eosinophils % 3.6 % (0.00-10.9); Hematocrit 37.3 VOL% (35.7-47.0); Hemoglobin 12.3 GM/DL (12.0-16.0); Immature Granulocytes % 0.2 %; Immature Granulocytes Absolute 0.01 #; Lymphocytes % 24.2 % (21.3-54.2); Mean Corpuscular Volume 98.4 FL (87-102); Mean Platelet Volume 11.2 FL (9.6-12.0); Monocytes % 11.1 % (1.7-12.7); Neutrophils % 60.4 % (38.7-73.9); Platelet Count 154 T/CUMM (130-400); Red Blood Count 3.79 MC/CUMM (3.8-5.5); Red Cell Distribution Width 12.7 % (9.3-17.3); White Blood Count 4.2 T/CUMM (4-12)
[2019-09-24 05:55] LABS: Albumin 3.4 G/DL (3.4-5.0); Bilirubin,Total 0.6 MG/DL (0.2-1.0); Calcium 9.1 MG/DL (8.5-10.1); Osmolality,Calculated 293.7 MOS/KG (273-304); Total Protein 7.5 G/DL (6.4-8.3)
[2019-09-24] MEDS: ISOSORBIDE MONONITRATE 30 MG TABLET PO SCH (09:53)
[2019-09-24] MEDS: FUROSEMIDE 40 MG/4 ML VIAL IV SCH ×2 (09:53→15:21)
[2019-09-24] MEDS: cefTRIAXone 1,000 MG in SYRINGE 1 EACH IV SCH (11:41)
[2019-09-24] MEDS: AZITHROMYCIN INJ 500 MG in SODIUM CHLORIDE 0.9% 250 ML IV SCH (13:31)
[2019-09-24] MEDS: ATORVASTATIN 40 MG TABLET PO SCH (20:12)
[2019-09-25] MEDS: ALBUTEROL/IPRATROPIUM 3 ML NEB RESP TX SCH ×4 (02:13→19:25)
[2019-09-25] MEDS: ISOSORBIDE MONONITRATE 30 MG TABLET PO SCH (09:18)
[2019-09-25] MEDS: FUROSEMIDE 40 MG/4 ML VIAL IV SCH ×2 (09:19→16:05)
[2019-09-25] MEDS ORDERED: GRANISETRON 1 MG/1 ML VIAL IV SCH (10:00)
[2019-09-25] MEDS ORDERED: DEXAMETHASONE INJ 10 MG in SODIUM CHLORIDE 0.9% 50 ML IV ONE (10:00)
[2019-09-25] MEDS: cefTRIAXone 1,000 MG in SYRINGE 1 EACH IV SCH (10:56)
[2019-09-25] MEDS ORDERED: CARBOplatin 450 MG in SODIUM CHLORIDE 0.9% 250 ML IV ONE (11:00)
[2019-09-25] MEDS: ATORVASTATIN 40 MG TABLET PO SCH (21:20)
[2019-09-26] MEDS: ALBUTEROL/IPRATROPIUM 3 ML NEB RESP TX SCH ×4 (00:30→20:17)
[2019-09-26] MEDS ORDERED: ALUMINUM/MAGNES/SIMETH MAX STR 30 ML UDCUP PO PRN (06:29)
[2019-09-26] MEDS: FUROSEMIDE 40 MG/4 ML VIAL IV SCH ×2 (09:43→15:12)
[2019-09-26] MEDS: cefTRIAXone 1,000 MG in SYRINGE 1 EACH IV SCH (09:43)
[2019-09-26] MEDS: ISOSORBIDE MONONITRATE 30 MG TABLET PO SCH (09:45)
[2019-09-26] MEDS: ATORVASTATIN 40 MG TABLET PO SCH (21:40)
[2019-09-27] MEDS: ALBUTEROL/IPRATROPIUM 3 ML NEB RESP TX SCH ×4 (01:14→19:01)
[2019-09-27] MEDS: FUROSEMIDE 40 MG/4 ML VIAL IV SCH ×2 (08:29→16:14)
[2019-09-27] MEDS: ISOSORBIDE MONONITRATE 30 MG TABLET PO SCH (08:30)
[2019-09-27] MEDS: cefTRIAXone 1,000 MG in SYRINGE 1 EACH IV SCH (09:31)
[2019-09-27] MEDS: ATORVASTATIN 40 MG TABLET PO SCH (21:03)
[2019-09-28] MEDS: ALBUTEROL/IPRATROPIUM 3 ML NEB RESP TX SCH ×4 (00:53→19:50)
[2019-09-28] MEDS: FUROSEMIDE 40 MG/4 ML VIAL IV SCH ×2 (08:54→15:46)
[2019-09-28] MEDS: ISOSORBIDE MONONITRATE 30 MG TABLET PO SCH (08:57)
[2019-09-28] MEDS: cefTRIAXone 1,000 MG in SYRINGE 1 EACH IV SCH (11:59)
[2019-09-28] MEDS ORDERED: LACTULOSE 20 GM/30 ML UDCUP PO ONE (14:41)
[2019-09-28] MEDS: HYDROcodone/CHLORPHENIRAMINE ER 5 ML UDCUP PO SCH (20:38)
[2019-09-28] MEDS: ATORVASTATIN 40 MG TABLET PO SCH (20:38)
[2019-09-29] MEDS: ALBUTEROL/IPRATROPIUM 3 ML NEB RESP TX SCH ×3 (01:00→12:43)
[2019-09-29 05:18] LABS: Calcium 9.6 MG/DL (8.5-10.1); Osmolality,Calculated 285.5 MOS/KG (273-304)
[2019-09-29] MEDS ORDERED: FUROSEMIDE 20 MG TABLET PO SCH (09:00)
[2019-09-29] MEDS: ISOSORBIDE MONONITRATE 30 MG TABLET PO SCH (09:36)
[2019-09-29] MEDS: HYDROcodone/CHLORPHENIRAMINE ER 5 ML UDCUP PO SCH (09:37)
[2019-09-29] MEDS: cefTRIAXone 1,000 MG in SYRINGE 1 EACH IV SCH (10:51)
[2019-09-29 11:21] VITALS: BP 147/98
== END 2019-09-29 16:45 | disposition home or self-care (01) | DRG 754 ==
LOC: N.TELES → SUATTDRO 09-23 14:35 → N.4E 09-25 12:07
PROVIDERS: ADMIT Internal Medicine; ATTEND Internal Medicine